=== PATIENT | female | born 1965 | race Two or more races ===

== ENCOUNTER → 2021-05-09 08:53 | Outpatient (BNVA) | payer OTHER, SELFPAY | PROVIDERS: PCP Nurse Practitioner Family; Visit Provider Nurse Practitioner Family | DX: R56.9 Unspecified convulsions (principal); R25.1 Tremor, unspecified; G47.33 Obstructive sleep apnea (adult) (pediatric); R51.9 Headache, unspecified; Z79.899 Other long term (current) drug therapy | CPT/HCPCS: 99212 ==

== ENCOUNTER → 2021-09-06 12:52 | Outpatient (BNVA) | payer MEDICARE, MEDICAID, SELFPAY | PROVIDERS: PCP Nurse Practitioner Family; Visit Provider Nurse Practitioner Family | DX: R56.9 Unspecified convulsions (principal); R25.1 Tremor, unspecified; R51.9 Headache, unspecified | CPT/HCPCS: 99212 ==

== ENCOUNTER 2024-03-29 13:24 | Outpatient (AMB) | payer MEDICARE, SELFPAY ==
--- OUTSIDE RECORDS SUMMARY | 2024-03-29 13:26 | XMS_ITS | Continuity of Care Document ---
Author Organization [facility] Address [address] [place] [address]- Care Team Providers Care Electrifier Operator Name Role Phone Richard CRUZ, Evita Burciaga Primary Care Physician [phone] Encounter [facility] Date(s): 02/05/24 - 03/06/[address] [address] Attending Physician: Alley Ahn Admitting Physician: AdmAlley valero Referring Physician: Admtr Ar8 Encounter Type: Triage Allergies, Adverse Reactions, Alerts No Known Allergies Immunizations Given and Recorded Vaccine Date Status Refusal Reason influenza virus vaccine, inactivated 1 02/06/20 Re corded 1Result Comment: [facility]:[id number] Medications albuterol 90 mcg/inh inhalation aerosol 2 puff, Inhalation, Every 4 hours, PRN Wheezing/Shortness of Breath, 0 Refills, Maintenance Start Date: 03/24/19 Status: Ordered Repeat number: 1 amiTRIPTYLINE = 50 mg, By Mouth, Daily at bedtime, 0 Refills, Maintenance, 11/17/17 9:00:33 AM EDT Start Date: 11/17/17 Status: Ordered Repeat number: 1 baclofen 20 mg oral tablet 20 mg, 1, tablet, By Mouth, 4 times a day, # 270 tablet, Refills 0, Maintenance, 03/24/19 9:12:44 AM EST Start Date: 03/24/19 Status: Ordered Quantity: 270.0 Unit: tablet Repeat number: 1 budesonide 0.5 mg/2 mL inhalation suspension 0.5 mg, 2, mL, Neb, 2 times a day, # 120 mL, Refills 0, Maintenance, 03/24/19 9:13:15 AM EST, Suspension Start Date: 03/24/19 Status: Ordered Quantity: 120.0 Unit: mL Repeat number: 1 buprenorphine-naloxone 8 mg-2 mg sublingual film 1 film, Sublingual, 3 times a day, dissolve under the tongue, 0 Refills, Maintenance, 03/24/19 9:13:36 AM EST, Film Start Date: 03/24/19 Status: Ordered Repeat number: 1 cyanocobalamin 1000 mcg oral tablet 1,000 mcg, 1, tablet, By Mouth, Daily, # 30 tablet, Refills 0, Maintenance, 03/24/19 9:15:00 AM EST Start Date: 03/24/19 Status: Ordered Quantity: 30.0 Unit: tablet Repeat number: 1 docusate-senna 50 mg-187 mg oral tablet 2 tablet, By Mouth, Daily at bedtime, # 30 tablet, 0 Refills, Maintenance, 03/25/19 2:23:33 PM EST,Tablet, [facility]/pharmacy #[id number], 2 tablet By Mouth Daily at bedtime, 170, cm, 03/25/19 11:56:02 EST, Height, 46.9, kg, 03/25/19 1:00:42 EST, Dry Weight Start Date: 03/25/19 Status: Ordered Quantity: 30.0 Unit: tablet Repeat number: 1 Dulera 200 mcg-5 mcg/inh inhalation aerosol 2 puffs, Inhalation, 2 times a day, # 13 Gm, 5 Refills, Maintenance, 03/13/20 10:48:00 AM EST, Aerosol, [facility]/pharmacy #[id number], Partial fill upon patient request if the prescription is for a schedule II opioid drug., 2 puffs Inhalation 2 times a day, 158, cm, 02/06/20 8:23:00 EDT, Height, 46.9, kg, 03/25/19 1:00:00 EST, Dry Weight Start Date: 03/13/20 Status: Ordered Quantity: 13.0 Unit: g Repeat number: 6 duloxetine 30 mg oral enteric coated capsule 1 capsule = 30 mg, By Mouth, Daily, do not crush or chew, 0 Refills, Maintenance, 03/24/19 6:21:00 PM EST, CR Capsule Start Date: 03/24/19 Status: Ordered Repeat number: 1 Excedrin 1 tablet, By Mouth, Every 6 hours, PRN Headache, 0 Refills, Maintenance, 03/24/19 9:16:30 AM EST Start Date: 03/24/19 Status: Ordered Repeat number: 1 ibuprofen 800 mg oral tablet 800 mg, 1, tablet, By Mouth, 4 times a day, # 270 tablet, Refills 0, Maintenance, 03/24/19 9:17:03 AM EST Start Date: 03/24/19 Status: Ordered Quantity: 270.0 Unit: tablet Repeat number: 1 mirtazapine 7.5 mg oral tablet 1 tablet = 7.5 mg, By Mouth, Daily at bedtime, # 180 tablet, 0 Refills, Maintenance, 03/24/19 9:17:26 AM EST, Tablet Start Date: 03/24/19 Status: Ordered Quantity: 180.0 Unit: tablet Repeat number: 1 Multi-Day Plus Minerals 1 tablet, By Mouth, Daily at bedtime, 0 Refills, Maintenance, 03/24/19 9:32:28 AM EST Start Date: 03/24/19 Status: Ordered Repeat number: 1 Narcan 4 mg/0.1 mL nasal spray Once, 0 Refills, Maintenance, 03/24/19 9:33:11 AM EST Start Date: 03/24/19 Status: Ordered Repeat number: 1 Narcan 4 mg/0.1 mL nasal spray 1 spray, Nares, Both, Once, PRN Other, 0 Refills, Maintenance, 03/24/19 6:22:59 PM EST Start Date: 03/24/19 Status: Ordered Repeat number: 1 nicotine 21 mg/24 hr transdermal film, extended release 1 patch, Topically, Daily, PRN Smoking Cessation, # 14 patch, 0 Refills, Maintenance, 03/25/19 2:22:22 PM EST, Patch, [facility]/pharmacy #[id number], 1 patch Topically Daily,PRN:Smoking Cessation, 170, cm, 03/25/19 11:56:02 EST, Height, 46.9, kg, 03/25/19 1:00:42 EST, Dry Weight Start Date: 03/25/19 Status: Ordered Quantity: 14.0 Unit: patch Repeat number: 1 omeprazole 20 mg oral delayed release tablet 1 tablet = 20 mg, By Mouth, Daily, 0 Refills, Maintenance, 03/24/19 9:34:19 AM EST Start Date: 03/24/19 Status: Ordered Repeat number: 1 Oxycodone 10 mL, By Mouth, 4 times a day, 0 Refills, Maintenance, 02/06/20 8:30:00 AM EDT, Partial fill upon patient request Start Date: 02/06/20 Status: Ordered Repeat number: 1 SUMAtriptan 50 mg oral tablet 1 tablet = 50 mg, By Mouth, Once, PRN as needed for migraine headache, may repeat dose once in 2 hours, # 9 tablet, 0 Refills, Maintenance, 03/24/19 6:26:19 PM EST, Tablet Start Date: 03/24/19 Status: Ordered Quantity: 9.0 Unit: tablet Repeat number: 1 Trazodone = 200 mg, By Mouth, Daily at bedtime, 0 Refills, Maintenance, 11/17/17 9:00:23 AM EDT Start Date: 11/17/17 Status: Ordered Repeat number: 1 Tylenol Arthritis Caplet 500 mg 2 tabs, By Mouth, Daily at bedtime, 0 Refills, Maintenance, 03/24/19 6:28:10 PM EST Start Date: 03/24/19 Status: Ordered Repeat number: 1 Problem List Condition Confirmation Course Effective Dates Status Health St [facility]us Informant Asthma Confirmed Active Depression Confirmed Active Tobacco use Confirmed Active EKG study * Event Display: EKG Authored Date: [id number] Patient Care team information Care Team Personnel Name: Mag Arriola RN Position: [facility] OB RN Member Role: Primary Care Nurse Name: Evita Ramos NP Position: [facility] Outreach Member Role: PCP Address: [address] [place] [address] Telecom: Name: Devorah George Position: [facility] Outreach Member Role: Lifetime Consulting Physician Care Team Related Persons Name: MAXIMO VALENCIA Name: IDA MORA Insurance Providers Guarantor name: STEFFI TORRES [facility] Plan Information #: 1 Payer: [facility] C[facility] ALLIANCE/ONE CARE Member Number: NA Policy Number: NA Group Number: NA
--- OUTSIDE RECORDS SUMMARY | 2024-03-29 13:26 | XMS_ITS | Data Portability ---
Author Organization [facility] Address [address] [place] [address] Care Team Providers Care Cray Fishing Hand Name Role Phone [facility] Referring Provider Assessment Encounter Date Assessment Date Assessment LastModified by Organization Details LastModified Time 02/02/2023 02/02/2023 As noted, we wer e called to see this patient regarding concerns of dyspnea. Evaluation in the field was performed by my district fire chief colleague, as noted above, I provided real-time direction and supervision for this visit. The evaluation revealed the patient is an active smoker with a diagnosis of possible COPD, no ton home o2, only on bronchodilator therapy (nebs and albuterol MDI). Vitals notable just for mild tachycardia. Exam is largely reassuring with clear lungs. symptoms have been going on for 3 weeks, stable- not progressive. Impression: asthma/copd on suboptimal therapy Plan: not severe enough to start prednisone at this time. Start advair 1 puff BID high dose. will send message to care team that she needs a respiratory evaluation including PFTs. Gave her warning sings for emergency and also when to call us back. reiterated that she needs to get inhaler teaching from pharmacist when she gets her new inhaler. Disposition: We discussed the diagnostic uncertainty of home visits and the risk associated with this. In this case, the patient and I felt this to be an acceptable and reasonable amount of risk given the benefit of avoiding an ED visit. We discussed the need to seek care urgently/emergent ly in the setting of any new or worsening serious symptoms, particularly worsening shortness of breath. [email or web address] Not available 02/02/2023 14:33:54 Plan of Treatment Reminders Order Date Submit Date Provider Last Modified By Organization Details Last Modified Time Details Appointments None recorded. Lab None recorded. Referral None recorded. Procedures None recorded. Surgeries None recorded. Imaging None recorded. Medication Orders Advair Diskus 500 mcg-50 mcg/dose powder for inhalation 2022 023 [facility]/Pharmacy #[id number], [address] [facility], [place], [address], 14:29:11 Patient TargetsNo targets recorded. Patient InstructionsNo instructions recorded. Reason for Referral None Reported. Medical Equipment None Reported. Medications Name Sig Start Date Stop Date Status Note LastModified by Organization Details LastModified Time ibuprofen 800 mg tablet TAKE 1 TABLET BY MOUTH THREE TIMES A DAY WITH MEALS active Not Available Not Available N ot Available prednisone 20 mg tablet TAKE 1 TABLET (20 MG) BY MOUTH IN THE MORNING FOR 5 DAYS. active Not Available Not Available Not Available oxycodone 15 mg tablet TAKE 1 TABLET (15 MG) BY MOUTH 4 TIMES DAILY FOR 28 DAYS. NEXT FILL 02/06/2023 active Not Available Not Available N ot Available trazodone 100 mg tablet TAKE 1 TABLET BY MOUTH EVERYDAY AT BEDTIME active Not Available Not Available No t Available cyanocobalam in (vit B-12) 1,000 mcg/mL injection solution INJECT 1 ML SUBCUTANEOU SLY EVERY MONTH active Not Available Not Available No t Available gabapentin 300 mg capsule TAKE 2 CAPSULES (600 MG) BY MOUTH AT BEDTIME FOR 30 DAYS, THEN 1 CAPSULE (300 MG) 2 TIMES DAILY. active Not Available Not Available No t Available budesonide 0.5 mg/2 mL suspension for nebulization USE 2ML VIA NEBULIZER TWICE DAILY DIRECTED active Not Available Not Available Not Available ondansetron 4 mg disintegrati ng tablet DISSOLOVE 1 TABLET BY MOUTH EVERY 6 TO 8 HOURS NEEDED FOR NAUSEA & VOMITING active Not Available Not Available No t Available fluticasone propionate 50 mcg/actuatio n nasal spray,suspen blanco PLEASE SEE ATTACHED FOR DETAILED DIRECTIONS active Not Available Not Available N ot Available amitriptylin e 100 mg tablet TAKE 1 TABLET DAILY WITH 25MG TABLET FOR A TOTAL DAILY DOSE OF 125MG active Not Available Not Available No t Available diazepam 5 mg tablet TAKE 1 TABLET BY MOUTH 3 TIMES A DAY FOR 28 DAYS active Not Available Not Available Not Available Ventolin HFA 90 mcg/actuatio n aerosol inhaler INHALE 2 PUFFS EVERY 4 TO 6 HOURS NEEDED FOR SHORTNESS OF BREATH/WHEE ZE active Not Available Not Available No t Available Laxative (bisacodyl) 5 mg tablet,delay ed release TAKE 2 TABLETS BY MOUTH AT 6PM DIRECTED. active Not Available Not Available No t Available cholestyrami ne (with sugar) 4 gram powder for susp in a packet TAKE 1 PACKET (4 G) BY MOUTH WITH BREAKFAST, WITH LUNCH, AND WITH EVENING MEAL. active Not Available Not Available No t Available diclofenac 1 % topical gel DIRECTED APPLY TO AFFECTED AREA TWICE A DAY TO 3 TIMES A DAY NEEDED FOR PAIN active Not Available Not Available No t Available Gavilyte-C 240 gram-22.72 gram-6.72 gram-5.84 gram oral solution PLEASE SEE ATTACHED FOR DETAILED DIRECTIONS active Not Available Not Available N ot Available Wixela Inhub 500 mcg-50 mcg/dose powder for inhalation INHALE 1 PUFF TWICE A DAY BY INHALATION ROUTE. active Not Available Not Available No t Available Vitals Date Recorded Heart rate Body temperature Oxygen saturation Oxygen saturation in Arterial blood by Pulse oximetry Body weight Respiratory rate Body height Systolic blood pressure Diastolic blood pressure Provider Name and Address Organization Details Last Updated DateTime 3 100 /min 99.2 [degF] 100 % 100 % 15795.2 4 g 16 /min 157.48 cm 154 mm[Hg] 67 mm[Hg] Not Available [facility] - production 3 14:21:26 Social History None recorded. Functional Status None recorded. Mental Status None recorded. Family History Nothing Reported. Medical History No medical history recorded. Gynecological HistoryNo gynecological history recorded. Obstetrics History GPAL:G 0 P 0 0 0 0 Past Encounters Encounter ID Performer Location Encounter Start Date Encounter Closed Date Diagnosis/Indication Diagnosis SNOMED-CT Code Diagnosis ICD10 Code [id number] CESAR ENAMORADO MD [facility] - [facility] [address] [place] [address] [id number] 02/02/2023 14:21:24 02/03/2023 09:34:58 Asthma 909756988 J45.909 Health Concerns Section Related Observation LastModified by Organization Detai ls LastModified Time None Recorded Concern Status LastModified by Organization Details LastModified Time None Recorded Advance Directives Directive None Recorded Payers Encounter Date Sequence Insurance Name Policy Number Policy Rodrigues Covered Member ID Rodrigues Member ID Guarantor Name 02/02/2023 1 [facility] - DOS ON OR AFTER 2022 - DUAL ELIGIBLE - [employer] AND ONE CARE (MEDICARE REPLACEMENT/ADV ANTAGE - HMO) Radha Belal [id number] Radha Bella Notes Date Note Type Note Provider Name and Address Organization Details Recorded Time 02/02/2023 text/html HPI: Member states she has been sick with a cold for the last 3 weeks. Member states she has used her Ventolin inhaler and nebulizer with no relief. Member states she has a new PCP and has appt on 03/16. Member reports having chest tightness with coughing and shortness of breath. Member states he cough in productive with green sputum. Member states she has been given Prednisone in the past with similar symptoms. Member has a nearby urgent care but does not have any transportation. History of GERD, Insomnia, chronic pain syndrome, migraine and anxiety. .................. .................. .................. .................. .................. .................. .................. ............... CRC Nursing Assessment: Comments: CRC RN DID NOT NEED FURTHER INFO .................. .................. .................. .................. .................. .................. .................. ............... Cement Or Concrete Finishing Supervisor Note From [place]: [facility] visit for female patient who has been sick for 3 weeks. Arrived to home where patient answered the door. Pt presents conscious and alert and ambulating without difficulty. Pt reports onset of illness 3 weeks ago with cough, shortness of breath, poor appetite and possible fevers. Pt has been taking nyquil and dayquil for this illness in addition to increased utilization of albuterol and ventolin nebulizer treatments. Pt reports negative covid swab at home earlier in illness. Vital signs taken with patient noted to be tachycardic with hr of 100. Pt afebrile. Lung sounds auscultated and found to be clear in all almaraz. Consulted with [facility] Dr. Moya who noted lack of prescribed long acting beta agonist in addition to inhaled steroids. Dr. Moya prescribed fluticasone/ salmetrol combined inhaler. Patient education provided and reviewed red flags for ED. .................. .................. .................. .................. .................. .................. .................. ............... Disposition: Fulfilled CESAR ENAMORADO MD [address] [place] [address],[address], [place], [address], [facility] 02/02/2023 18:10:07 OBGyn Episode No OBEpisode recorded.
--- OUTSIDE RECORDS SUMMARY | 2024-03-29 13:26 | XMS_ITS | Continuity of Care Document ---
Author Organization [facility] Address [address] [address]- Care Team Providers Care Pipe Cleaner Name Role Phone Richard CRUZ, Evita Burciaga Primary Care Physician [id number]/16[facility] - 03/25/24 [facility] [address] [address] Attending Physician: Milan Alvarez MD Admitting Physician: Milan Alvarez MD Referring Physician: Richard CRUZ, Evita Burciaga Encounter Type: Pre-OutPatient One Time Allergies, Adverse Reactions, Alerts No Known Allergies Immunizations Given and Recorded Vaccine Date Status Refusal Reason influenza virus vaccine, inactivated 1 02/06/20 Re corded 1Result Comment: [facility]:[id number] Medications albuterol 90 mcg/inh inhalation aerosol 2 [...] 0 Refills, Maintenance, 03/25/19 2:23:33 PM EST,Tablet, [facility]/pharmacy #[id number], 2 tablet By Mouth Daily at bedtime, 170, cm, 03/25/19 11:56:02 EST, Height, 46.9, kg, 03/25/19 1:00:42 EST, Dry Weight Start Date: 03/25/19 Status: Ordered Quantity: 30.0 Unit: tablet Repeat number: 1 Dulera 200 mcg-5 mcg/inh inhalation aerosol 2 puffs, Inhalation, 2 times a day, # 13 Gm, 5 Refills, Maintenance, 03/13/20 10:48:00 AM EST, Aerosol, [facility]/pharmacy #[id number], Partial fill upon patient request if [...] Refills, Maintenance, 03/25/19 2:22:22 PM EST, Patch, [facility]/pharmacy #[id number], 1 patch Topically Daily,PRN:Smoking Cessation, 170, [...] Depression Confirmed Active Tobacco use Confirmed Active Patient Care team information Care Team Personnel Name: Mag Arriola RN Position: [facility] OB RN Member Role: Primary Care Nurse Name: Evita Ramos NP Position: [facility] Outreach Member Role: PCP Address: [address] [place] [address] Telecom: Name: Devorah George Position: [facility] Outreach Member Role: Lifetime Consulting Physician Care Team Related Persons Name: MAXIMO VALENCIA Name: IDA MORA Insurance Providers Guarantor name: STEFFI TORRES Health Plan Information #: 1 Payer: [employer]/ONE CARE Member Number: [id number] Policy Number: NA Group Number: [facility] Health Plan Information #: 2 Payer: [employer] Member Number: [id number] Policy Number: NA Group Number: NA
--- OUTSIDE RECORDS SUMMARY | 2024-03-29 13:26 | XMS_ITS | Continuity of Care Document ---
Author Organization [facility] Address [address] [place] [address]- Care Team Providers Care Resident Manager Name Role Phone Richard CRUZ, Evita Burciaga Primary Care Physician [id number] Date(s): 01/27/24 - 03/16/[address] [address] Attending Physician: Richard CRUZ, Evita Burciaga Admitting Physician: Evita Ramos NP Referring Physician: Richard CRUZ, Evita Burciaga Encounter Type: Pre-Outpt Allergies, Adverse Reactions, Alerts No Known Allergies Immunizations Given and Recorded Vaccine Date Status Refusal Reason influenza virus vaccine, inactivated 1 02/06/20 Re corded 1Result Comment: [facility]:[id number] Medications albuterol 90 mcg/inh inhalation aerosol 2 [...] Maintenance, 03/25/19 2:23:33 PM EST,Tablet, [facility]/pharmacy #[id number], 2 tablet By Mouth Daily at bedtime, 170, cm, 03/25/19 11:56:02 EST, Height, 46.9, kg, 03/25/19 1:00:42 EST, Dry Weight Start Date: 03/25/19 Status: Ordered Quantity: 30.0 Unit: tablet Repeat number: 1 Dulera 200 mcg-5 mcg/inh inhalation aerosol 2 puffs, Inhalation, 2 times a day, # 13 Gm, 5 Refills, Maintenance, 03/13/20 10:48:00 AM EST, Aerosol, [facility]/pharmacy #[id number], Partial fill upon patient request if [...] 03/25/19 2:22:22 PM EST, Patch, [facility]/pharmacy #[id number], 1 patch Topically Daily,PRN:Smoking Cessation, 170, [...] Team Personnel Name: Mag Arriola RN Position: [facility] OB RN Member Role: Primary Care Nurse Name: Evita Ramos NP Position: [facility] Outreach Member Role: PCP Address: [address] [place] [address] Telecom: Name: Devorah George Position: [facility] Outreach Member Role: Lifetime Consulting Physician Care Team Related Persons Name: MAXIMO VALENCIA Name: IDA MORA Insurance Providers Guarantor name: STEFFI TORRES Health Plan Information #: 1 Payer: [employer] Member Number: [id number] Policy Number: NA Group Number: [id number] Health Plan Information #: 2 Payer: [employer] Member Number: [id number] Policy Number: NA Group Number: NA
--- OUTSIDE RECORDS SUMMARY | 2024-03-29 13:26 | XMS_ITS | Continuity of Care Document ---
Author Organization [facility] Address [address] [facility] [address] [place] [address]- Care Team Providers Care Ship Rigger Apprentice Name Role Phone Richard CRUZ, Evita Burciaga Primary Care Physician Encounter [facility] Date(s): 02/24/24 - 03/25/24 [facility] [address] [address] Attending Physician: Admtr, Rufino8 Admitting Physician: [id number] Referring Physician: Admtr, Ar8 Encounter Type: Triage Allergies, Adverse Reactions, Alerts No Known Allergies Immunizations Given and Recorded Vaccine Date Status Refusal Reason influenza virus vaccine, inactivated 1 02/06/20 Re corded 1Result Comment: [facility]:[id number] Medications albuterol 90 mcg/inh inhalation aerosol 2 [...] 0 Refills, Maintenance, 03/25/19 2:23:33 PM EST,Tablet, [facility]/pharmacy #[id number], 2 tablet By Mouth Daily at bedtime, 170, cm, 03/25/19 11:56:02 EST, Height, 46.9, kg, 03/25/19 1:00:42 EST, Dry Weight Start Date: 03/25/19 Status: Ordered Quantity: 30.0 Unit: tablet Repeat number: 1 Dulera 200 mcg-5 mcg/inh inhalation aerosol 2 puffs, Inhalation, 2 times a day, # 13 Gm, 5 Refills, Maintenance, 03/13/20 10:48:00 AM EST, Aerosol, [facility]/pharmacy #[id number], Partial fill upon patient request if [...] Refills, Maintenance, 03/25/19 2:22:22 PM EST, Patch, [facility]/pharmacy #[id number], 1 patch Topically Daily,PRN:Smoking Cessation, 170, [...] Team Personnel Name: Mag Arriola RN Position: [facility] OB RN Member Role: Primary Care Nurse Name: Evita Ramos NP Position: [facility] Outreach Member Role: PCP Address: [address] [place] [address] Telecom: Name: Devorah George Position: [facility] Outreach Member Role: Lifetime Consulting Physician Care Team Related Persons Name: MAXIMO VALENCIA Name: IDA MORA Insurance Providers Guarantor name: [facility] [employer] [facility] Information #: 1 Payer: [facility]/ONE CARE Member Number: NA Policy Number: NA Group Number: NA
--- OUTSIDE RECORDS SUMMARY | 2024-03-29 13:26 | XMS_ITS | Continuity of Care Document ---
Author Organization [employer] ter Address [address] [place] [address]- Care Team Providers Care Rn Case Manager Name Role Phone Richard CRUZ, Evita Burciaga Primary Care Physician Encounter [facility] Date(s): 01/27/24 - 03/05/24 [facility] [address], [place] [address] Attending Physician: Richard CRUZ, Evita Burciaga Admitting Physician: Richard CRUZ, Evita Burciaga Referring Physician: Richard CRUZ, Evita Burciaga Encounter Type: Pre-Outpt Allergies, Adverse Reactions, Alerts No Known Allergies Immunizations Given and Recorded Vaccine Date Status Refusal Reason influenza virus vaccine, inactivated 1 02/06/20 Re corded 1Result Comment: [facility] [id number] Medications albuterol 90 mcg/inh inhalation aerosol 2 [...] 0 Refills, Maintenance, 03/25/19 2:23:33 PM EST,Tablet, [facility]/pharmacy #[id number], 2 tablet By Mouth Daily at bedtime, 170, cm, 03/25/19 11:56:02 EST, Height, 46.9, kg, 03/25/19 1:00:42 EST, Dry Weight Start Date: 03/25/19 Status: Ordered Quantity: 30.0 Unit: tablet Repeat number: 1 Dulera 200 mcg-5 mcg/inh inhalation aerosol 2 puffs, Inhalation, 2 times a day, # 13 Gm, 5 Refills, Maintenance, 03/13/20 10:48:00 AM EST, Aerosol, [facility]/pharmacy #[id number], Partial fill upon patient request [...] Refills, Maintenance, 03/25/19 2:22:22 PM EST, Patch, [facility]/pharmacy #[id number], 1 patch Topically Daily,PRN:Smoking Cessation, [...] Team Personnel Name: Mag Arriola RN Position: [facility] OB RN Member Role: Primary Care Nurse Name: Evita Ramos NP Position: [facility] Outreach Member Role: PCP Address: [address] [place] [address] Telecom: Name: Devorah George Position: [facility] Outreach Member Role: [employer] Physician Care Team Related Persons Name: MAXIMO VALENCIA Name: IDA MORA Insurance Providers Guarantor name: STEFFI TORRES Health Plan Information #: 1 Payer: [employer] Member Number: [id number] Policy Number: NA Group Number: [facility] Health Plan Information #: 2 Payer: [employer] Member Number: [id number] Policy Number: NA Group Number: NA
--- NOTE | 2024-03-29 13:27 | A.OFFVIS_ITS ---
Vital Signs 03/29/24 13:28 Height 5 ft 2 in Weight 96 lb BMI 17.6 BP 118/68 Blood Pressure Location Rt brachial Position Sitting Pulse 96 Pulse Source Pulse Oximeter Pulse Oximetry (%) 97 Oxygen Delivery Method Room Air Intake Visit Reasons: Follow Up Intake Note: her Dr was looking to changer her Diazepam seizure medication to different medication(patient states it works but dr doesnt want her taking. Accompanied by: Self / Same As Patient Allergies topiramate Allergy (Intermediate, Verified 03/29/24 13:30) Unknown Medication List - Last Reconciled 03/29/24 by BRIAN Borjas albuterol sulfate 90 mcg/actuation (Ventolin HFA) 2 puffs PO Q4-6H PRN amitriptyline 4 tabs qhs x's 1 wk, then 3 tabs qhs x's 1 wk, then 2 tabs qhs x's 1 wk, then 1 tab qhs x's 1 wk, then 1 tab every other night x's 1 wk then stop PO bedtime; 5 weeks amitriptyline 100 mg PO DAILY baclofen 20 mg PO QID budesonide mg inhalation diazepam 5 mg PO BID PRN ibuprofen 800 mg PO TID levetiracetam (Keppra) 750 mg PO BID 30 days magnesium oxide 400 mg PO BEDTIME omeprazole 20 mg PO BID oxycodone 15 mg PO QID riboflavin (vitamin B2) 200 mg (2 x 100 mg) PO BID 30 days trazodone 100 mg PO BEDTIME HPI Comments Details: Right-handed 58-yr-old female presents for f/u visit of seizure activity and headache. Pt was last seen my myself in August 2021. Pt reports that since the last visit, pt stopped Keppra as it started to cause hallucinations. She was then started on Diazepam 5mg TID by her PCP. Review of the previous visit new, notes there was discussion with patient regarding using diazepam as needed in place of baclofen, as baclofen can reduce seizure threshold.. Her last full seizure was prior to switching from the Keppra to the Diazepam- was evaluated at [facility] in 2021. She states that she has to keep her mood calm- states if she is too happy, too sad, and especially if very angry- this will trigger a seizure. She describes the full seizure as falling asleep for up to 8 hrs, she can walk around and talk with people, and not remembering anything. She states she has smaller seizures- so when she feels the seizure come on, she lays down in the middle of the bed until she feels better- maybe 2-3 hrs. When she comes out of the seizure, she feels fine. She also have episodes of shaking lasting 5-10 minutes, has to hold onto things, she needs help to go the bathroom. When these episodes happen, she can just fall, during the fall she has had hip fractures and foot injuries. The episode may start at her sister's house and then her family has walk/carry her back to her own apartment. Sometimes she has urinary or bowel incontinence. She cannot control her body. She can fall. She just tries to hold and says don't let me fall . After the episode, she still needs the use the walker all day as the shakiness lasts all day and all night. When the seizure is little - she can relax and prevent the seizure. She can have some orthostatic lightheadedness at times. Per pt, she has a new PCP, who has started to wean her off of the Diazepam- now on 5mg qam, 2.5mg q afternoon, and 5mg qhs. She does continue on Oxycodone 15mg po QID for chronic pain. Now on Amitriptyline 25mg qhs for RLE foot neuralgias. She states she has recently been referred for cardiology workup as a recent chest imaging showed enlarged cardiac size. She has been taking Gabapentin 300mg bid. In the past- she has had allergy to Topiramate- she does not recall taking this. Per my previous notes, she tried depakote but stopped d/t worry for side effects. She has been having a throbbing/burning occipital region headache a/w photophobia, nausea. Sometimes her neck hurts and moves into her back. She also has chronic right hip pain following Right hip ORIF. Has h/o right shoulder pain- s/p surgical repair. Cold weather, humidity, storms exacerbate her body pains. Her sleep is not that good lately- attributes this to her her headache. [facility] Surgical History History of hip surgery H/O shoulder surgery Family History Father Cancer HTN (hypertension) Heart disease Mother Cancer Diabetes Social History Alcohol intake: never Patient Tobacco Use Status: Current everyday Tobacco user Physical Exam Vital Signs: Last Vital Signs Pulse 96 03/29/24 13:28 BP 118/68 03/29/24 13:28 Pulse Ox 97 03/29/24 13:28 Oxygen Delivery Method Room Air 03/29/24 13:28 BMI result Body Mass Index 17.6 Const General: cooperative and no acute distress Orientation/consciousness: patient oriented x3 HEENT Head: Yes normocephalic Resp Effort & Inspection: normal respiratory effort and able to speak in complete sentences Neuro General: patient oriented x3, gait normal and CN's II-XI intact bilaterally Cognition (Neuro): normal cognition Motor exam (neuro): 5/5 motor strength present throughout Psych Appearance: grossly normal Mental Status: mental status grossly normal Speech and movement: Normal speech and movement present Affect: normal affect Attitude: cooperative Thought process: Normal thought process present Thought content: Normal thought content present Insight: Good insight present (Psych) Judgement: Good judgement present (Psych) Assessment & Plan Assessment & Plan (1) Seizure: Comment: Likely psychogenic nonepileptic convulsions. Cardiac etiology remains in differential. Code(s): R56.9 - Unspecified convulsions Category: Medical (2) Orthostatic lightheadedness: Code(s): R42 - Dizziness and giddiness Category: Medical (3) Tremor: Comment: episodes of tremors leading to falls Code(s): R25.1 - Tremor, unspecified Category: Medical (4) Migraine without aura: Code(s): G43.009 - Migraine without aura, not intractable, without status migrainosus Category: Medical Plan For seizures activity: Previous 72 hr EEG normal. 08/30/[address]: Normal Patient advised to undergo cardiac tilt-table test at [facility]. Increase gabapentin from 300 mg b.i.d. to 300 mg t.i.d.- this may help mood control, muscle spasms, pain, and headache. Once patient has acclimated to increase gabapentin, consider further reduction in scheduled diazepam dose. Previous medication trials: Topiramate: Possibly was tried for headache, not tolerated. Depakote 250 mg was tried for seizure activity, however patient stopped due to worry for side effect. Keppra 750 mg b.i.d.: Cause hallucinations. Future considerations: Video EEG, Referral to a Tertiary epilepsy Clinic or functional neurological disorder clinic/therapist. For migraine headache: Continue Amitriptyline 25 mg q.h.s.- use for RLE paresthesia as well Patient previously used Naratriptan prn- however would hold until cardiology eval completed. Patient requests that medications continue to be prescribed by her PCP, states it is easier to manage refills this way. I did place a call directly to her PCP office and left message requesting PCP call to discuss his case. Will follow-up upon review of above and patient to follow-up in clinic in 6 months or sooner prn. Orders: Orders ECG Tilt Table Test Today R42 - Dizziness and giddiness, R56.9 - Unspecified convulsions Medications: New gabapentin 300 mg PO TID 90 caps 0RF 30 days Coding Level of Care Code Est Pt Level 4 (11487) Diagnoses Seizure R56.9 Orthostatic lightheadedness R42 Tremor R25.1 Migraine without aura G43.009
[2024-03-29 13:28] VITALS: BP 118/68; PULSE 96; O2SAT 97; BMI 17.6
== END 2024-03-29 14:27 | disposition home or self-care (01) ==
PROVIDERS: PCP Nurse Practitioner Family; Visit Provider Nurse Practitioner Family
DX: R56.9 Unspecified convulsions (principal); R42 Dizziness and giddiness; R25.1 Tremor, unspecified; G43.009 Migraine without aura, not intractable, without status migrainosus
CPT/HCPCS: 99214

== ENCOUNTER → 2024-03-29 13:24 | Outpatient (BNVA) | payer MEDICARE, SELFPAY | PROVIDERS: PCP Nurse Practitioner Family; Visit Provider Nurse Practitioner Family | DX: R56.9 Unspecified convulsions (principal); R42 Dizziness and giddiness; R25.1 Tremor, unspecified; G43.009 Migraine without aura, not intractable, without status migrainosus | CPT/HCPCS: 99212 ==

== ENCOUNTER 2024-11-29 10:00 | Outpatient (AMB) | payer MEDICARE, SELFPAY ==
[2024-11-29 10:06] VITALS: BP 158/80; PULSE 96; O2SAT 100; BMI 15.9
--- NOTE | 2024-11-29 10:06 | MHC.OFFVIS ---
Vital Signs 11/29/24 10:06 Height 5 ft 2 in Weight 87 lb 2 oz BMI 15.9 BP 158/80 H Blood Pressure Location Rt brachial Position Sitting Pulse 96 Pulse Source Pulse Oximeter Pulse Oximetry (%) 100 Oxygen Delivery Method Room Air Intake Visit Reasons: Follow Up 6mo Intake Note: Patient presents 6 month follow up for migraines/Seizures and tremors. Accompanied by: Self / Same As Patient Allergies topiramate Allergy (Intermediate, Verified 11/29/24 10:08) Unknown Medication List - Last Reconciled 11/29/24 by BRIAN Borjas albuterol sulfate 90 mcg/actuation (Ventolin HFA) 2 puffs PO Q4-6H PRN aspirin 81 mg PO DAILY lebgkja-hinvmhigywbvs-jkukitbn 250-250-65 mg (Excedrin Extra Strength) 2 tabs PO Q4-6H PRN budesonide mg inhalation diazepam 5 mg PO BID PRN gabapentin 300 mg PO TID 30 days ibuprofen 800 mg PO TID lisinopril 5 mg PO DAILY 30 days magnesium oxide 400 mg PO BEDTIME omeprazole 20 mg PO BID oxycodone 15 mg PO QID riboflavin (vitamin B2) 200 mg (2 x 100 mg) PO BID 30 days HPI Comments Details: Right-handed 59-yr-old female presents for f/u visit of seizure activity and headache, however she reports she needs to discuss her medications following a October hospitalization for stroke and heart failure. Per pt, on 10/27/24, her son told her that her family called 911, as she was c/o chest pain, SOB, and walked herself outside where she passed out. She was brought to [facility] and was transferred to [facility] in [place]. She states she was discharged home on 11/16/24, as pt did not wnat to go to rehab in [place]. She was started on ASA and atorvastatin 80mg, and was advised to establish care w/ cardiology. She was given Keppra, but stopped it as she has a h/o not tolerating Keppra. Her amitriptyline and trazodone was stopped during the hospitalization. She was discharge w/ home NG/PT. She reports her residual symptoms- hoarse voice - ? d/t intubation and right forearm weakness, RUE/RLE painful tightness, more bothersome in the RLE. She is finding herself to become more easily tired. She is using a walker, at times when more tired. She having more headaches- now everyday. Takes Excedrin daily. Denies dysphagia, bladder/bowel changes, vision changes. Pt notes that prior to the hospitalization, she had been weaning off the diazepam, for seizure management. However, in the hospital, the diazepam was resumed. Then on 11/25/24, per patient, her PCP increased the diazepam and gabapentin, and ordered excedrin for headaches. 03/29/24, Previous HPI: Right-handed 58-yr-old female presents for f/u visit of seizure activity and headache. Pt was last seen my myself in August 2021. Pt reports that since the last visit, pt stopped Keppra as it started to cause hallucinations. She was then started on Diazepam 5mg TID by her PCP. Review of the previous visit new, notes there was discussion with patient regarding using diazepam as needed in place of baclofen, as baclofen can reduce seizure threshold.. Her last full seizure was prior to switching from the Keppra to the Diazepam- was evaluated at [facility] in 2021. She states that she has to keep her mood calm- states if she is too happy, too sad, and especially if very angry- this will trigger a seizure. She describes the full seizure as falling asleep for up to 8 hrs, she can walk around and talk with people, and not remembering anything. She states she has smaller seizures- so when she feels the seizure come on, she lays down in the middle of the bed until she feels better- maybe 2-3 hrs. When she comes out of the seizure, she feels fine. She also have episodes of shaking lasting 5-10 minutes, has to hold onto things, she needs help to go the bathroom. When these episodes happen, she can just fall, during the fall she has had hip fractures and foot injuries. The episode may start at her sister's house and then her family has walk/carry her back to her own apartment. Sometimes she has urinary or bowel incontinence. She cannot control her body. She can fall. She just tries to hold and says don't let me fall . After the episode, she still needs the use the walker all day as the shakiness lasts all day and all night. When the seizure is little - she can relax and prevent the seizure. She can have some orthostatic lightheadedness at times. Per pt, she has a new PCP, who has started to wean her off of the Diazepam- now on 5mg qam, 2.5mg q afternoon, and 5mg qhs. She does continue on Oxycodone 15mg po QID for chronic pain. Now on Amitriptyline 25mg qhs for RLE foot neuralgias. She states she has recently been referred for cardiology workup as a recent chest imaging showed enlarged cardiac size. She has been taking Gabapentin 300mg bid. In the past- she has had allergy to Topiramate- she does not recall taking this. Per my previous notes, she tried depakote but stopped d/t worry for side effects. She has been having a throbbing/burning occipital region headache a/w photophobia, nausea. Sometimes her neck hurts and moves into her back. She also has chronic right hip pain following Right hip ORIF. Has h/o right shoulder pain- s/p surgical repair. Cold weather, humidity, storms exacerbate her body pains. Her sleep is not that good lately- attributes this to her her headache. REPLACED BY [facility] Surgical History History of hip surgery H/O shoulder surgery Family History Father Cancer HTN (hypertension) Heart disease Mother Cancer Diabetes Social History Alcohol intake: never Patient Tobacco Use Status: Current everyday Tobacco user Physical Exam Vital Signs: Last Vital Signs Pulse 96 11/29/24 10:06 BP 158/80 H 11/29/24 10:06 Pulse Ox 100 11/29/24 10:06 Oxygen Delivery Method Room Air 11/29/24 10:06 BMI result Body Mass Index 15.9 Const General: cooperative and no acute distress Orientation/consciousness: patient oriented x3 HEENT Head: Yes normocephalic Resp Effort & Inspection: normal respiratory effort and able to speak in complete sentences Neuro Other: Mild RUE and RLE tone RUE mild weakness Stands easily, slow steady gait General: patient oriented x3 and CN's II-XI intact bilaterally Cognition (Neuro): normal cognition Deep tendon reflexes (DTR's): Right triceps reflex intensity grade: 3+, Left triceps reflex intensity grade: 2+, Rt Biceps (C5, C6): 3+, Left biceps reflex intensity grade: 2+, Right brachioradialis reflex intensity grade: 3+, Left brachioradialis reflex intensity grade: 2+, Right patellar reflex intensity grade: 3+, Left patellar reflex intensity grade: 2+ and Right ankle reflex intensity grade: 3+ Psych Appearance: grossly normal Mental Status: mental status grossly normal Speech and movement: Normal speech and movement present Affect: normal affect Attitude: cooperative Thought process: Normal thought process present Thought content: Normal thought content present Insight: Good insight present (Psych) Judgement: Good judgement present (Psych) Assessment & Plan Assessment & Plan (1) CVA (cerebral vascular accident): Code(s): I63.9 - Cerebral infarction, unspecified Category: Medical Qualifiers: Laterality of affected vessel: unspecified (2) Hemiparesis affecting right side as late effect of cerebrovascular accident (CVA): Code(s): I69.351 - Hemiplegia and hemiparesis following cerebral infarction affecting right dominant side Category: Medical (3) Seizure: Comment: Likely psychogenic nonepileptic convulsions. Cardiac etiology remains in differential. Code(s): R56.9 - Unspecified convulsions Category: Medical (4) Orthostatic lightheadedness: Code(s): R42 - Dizziness and giddiness Category: Medical (5) Tremor: Comment: episodes of tremors leading to falls Code(s): R25.1 - Tremor, unspecified Category: Medical (6) Migraine without aura: Code(s): G43.009 - Migraine without aura, not intractable, without status migrainosus Category: Medical Qualifiers: Status migrainosus presence: without status migrainosus Intractability: not intractable Qualified Code(s): G43.009 - Migraine without aura, not intractable, without status migrainosus Plan For interval CVA: Start lisinopril 5 mg daily-to optimize BP control, w/ goal <130/90 Continue aspirin 81 mg daily, atorvastatin 80 mg daily. Concur with increased gabapentin, this may help residual right-sided tone/spasticity/discomfort. Continue PT exercises For seizures activity: Previous 72 hr EEG normal. 08/30/[address]: Normal Patient advised to undergo cardiac tilt-table test at [facility]. Continue gabapentin 300 mg t.i.d.- this may help mood control, muscle spasms, pain, and headache. Previous medication trials: Topiramate: Possibly was tried for headache, not tolerated. Depakote 250 mg was tried for seizure activity, however patient stopped due to worry for side effect. Keppra 750 mg b.i.d.: Cause hallucinations. Future considerations: Video EEG, Referral to a Tertiary epilepsy Clinic or functional neurological disorder clinic/therapist. For acute migraine headache: May continue Tylenol or Excedrin migraine as needed for now. Previous trials: Naratriptan-was helpful. Acute migraine treatment contraindications: All triptans/DHE due to h/o CVA. All CGRP antagonist due to CVA within the last 6 months. NSAIDs due to poorly controlled BP at this time. For migraine prevention: Continue gabapentin as above Previous trials: Amitriptyline up to 100mg- discontinued after CVA in 2024. Naratriptan prn- was helpful. Migraine treatment contraindications: TCAs d/t recent CVA. All CGRP antagonist due to CVA within the last 6 months. Will follow-up upon review of above and patient to follow-up in clinic in 6 months or sooner prn. Addendum, upon [facility] chart review to check if previously ordered tilt-table test was completed, note that on 12/02/2024, patient presented to [facility] ER with complaint of shortness of breath. With review of this interval hospitalization, and note that the lisinopril I just ordered, has been discontinued, I will remove this from patient's medication profile- though per Cardiology recommendations, this maybe resumed if blood pressure improves or increases. Per 12/03/2024 [facility] discharge note: Assessment and Plan Radha is a 59-year-old female with past medical history of?asthma, COPD,?back pain on chronic opioids,?seizure disorder, anxiety depression?hyperlipidemia, hypertension presented to the ED with shortness of breath.? Patient mention she was feeling more short of breath than usual, she took her ProAir inhaler,?nebulizer?but?that did not help with her shortness of breath so she called?ambulance and was brought in the emergency room.Assessment and plan: ?The patient? presented to [facility] on 10/27/2024 due to hypoxic respiratory failure in the setting of pulmonary edema intubated? and transferred to?[facility]? was admitted there? until 11/16/24. Echocardiogram showed low EF,?possible stress cardiomyopathy,?moderate to severe AI moderate to severe MR, moderate to severe MS. ?She underwent extensive cardiac workup including transthoracic echocardiogram,?cardiac catheterization which showed Left main?normal; LAD?30% stenosis in the proximal LAD and 30% stenosis in the diagonal branch; circumflex?30% stenosis in the proximal to mid circumflex and 80% stenosis in a small third OM branch; RCA?40% stenosis in the proximal to mid RCA. Patient was seen by cardiac surgery Dr. Ivory who recommended?who recommended a combined aortic valve and mitral valve replacement to be arranged in the outpatient setting Before she was discharged from [facility], she underwent a follow-up transthoracic echocardiogram on 11/11/2024 that showed recovery of the LVEF. ?Specifically, she was noted to have a normal left ventricular systolic function with a left ventricular ejection fraction of 55 to 60%, mild LVH, moderate AI, severe MS, and mild MR. As mentioned patient presented with shortness of breath her proBNP was elevated,?chest x-ray showed interstitial markings.? She was given IV Lasix in the ED. ?Cardiology was consulted cardiology started her on Lasix 20 mg IV twice daily, patient is feeling better with IV Lasix her shortness of breath has improved significantly. ?She was not discharged from [facility] with any diuretics.? Echocardiogram was done here which showed a normal ejection fraction, persistent valvular abnormalities.? She was evaluated by cardiology today.? Patient wants her valve surgery to be done locally.? Cardiology will refer her to [facility] cardiac surgery to be evaluated as outpatient. ?For now cardiology recommends to continue?Lasix 20 mg p.o. daily.? Since patient is feeling better shortness of breath has improved significantly she will be discharged home today with p.o. Lasix. Shortness of breath ?(R06.02) ?Acute?CHF exacerbation ?Moderate to severe AI , moderate to severe MR , moderate to severe MS COPD with asthma ?(J44.89) Shortness of breath has improved with diuresis No signs of asthma/COPD exacerbation Appreciate cardiology recommendation Continue Lasix 20 mg? po ?potassium chloride 10 mEq daily o BID Monitor weight daily Repeat BMP with PCP in 1 week Cardiology to refer her to cardiac surgery?as outpatient Cardiology has started her on metoprolol, will continue metoprolol 25 mg p.o. daily Blood pressure is soft will hold lisinopril 5 mg on discharge?can be resumed as outpatient if blood pressure remains stable Resume home inhalers for asthma and COPD Seizure disorder ?(G40.909) Continue home dose of Keppra, diazepam Chronic pain continue home dose of oxycodone 15 mg every 6 hours Hyperlipidemia continue?atorvastatin Patient InstructionsPlease note following medication changes Medications started-? Lasix 20 mg p.o. daily Potassium chloride 10 mEq daily Metoprolol 25 mg daily Medication discontinued-? lisinopril 5 mg Please take all medication as prescribed monitor daily weight Medications: New gabapentin 800 mg PO TID Coding Level of Care Code Est Pt Level 4 (40964) Diagnoses CVA (cerebral vascular accident) I63.9 Laterality of affected vessel: unspecified Hemiparesis affecting right side as late effect of cerebrovascular accident (CVA) I69.351 Seizure R56.9 Orthostatic lightheadedness R42 Tremor R25.1 Migraine without aura and without status migrainosus, not intractable G43.009 Status migrainosus presence: without status migrainosus Intractability: not intractable
--- OUTSIDE RECORDS SUMMARY | 2024-11-29 11:11 | XMS_ITS | Encounter Summary ---
Author Organization [facility] Address [address] [place] [id number] Phone Care Team Providers Care Valving Machine Operator Name Role Phone Elen Bennett HELP DESK INTERN Primary Care Provider Evita Ramos HELP DESK INTERN Primary Care Provider [phone] Encounter Details Date Type Department Care Team (Late st Contact Info) Description 05/20/2021 Procedure Pass [facility] [address] [place] [address] Social History Tobacco Use Types Packs/Day Years Used Date Smoking Tobacco: Every Day Cigarettes 1 30 Smokeless Tobacco: Never Alcohol Use Standard Drinks/Week Comments No 0 (1 standard drink = 0.6 oz pur e alcohol) Comments No Sex and Gender Information Value Date Recorded Sex Assigned at Female 06/25/2021 4:31 PM EDT Legal Sex Female 9:43 PM EDT Gender Identity Female 06/25/2021 4:31 PM EDT Sexual Orientation Not on file documented as of this encounter Functional Status * Calculated C-SSRS Risk Score (Lifetime/Recent) Answer Date of Assessment Author No Risk Indicated 05/20/2021 2:26 PM Luciano Reyez CNP * [place] Suicide Severity Rating Scale (Screener/Recent Self-Report) Question Answer Date of Assessment Author 1. Wish to be (Past 1 Month) No 05/20/2021 2:26 PM Luciano Reyez CNP 2. Non-Specific Active Suicidal Thoughts (Past 1 Month) No 05/20/2021 2:26 PM Luciano Reyez CNP 6. Suicidal Behavior (Lifetime) No 05/20/2021 2:26 PM EST Luciano Pratt George espinoza, HISTORIAN RESEARCH ASSISTANT documented as of this encounter Plan of Treatment Upcoming Encounters Date Type Department Care Team (Late st Contact Info) Description 08/30/2024 Procedure Pass [address] [address] 03/28/2025 9:30 AM EST Appointment [address] [address] Evita Ramos NP [address] [place] [id number] documented as of this encounter Visit Diagnoses Not on filedocumented in this encounter Additional Health Concerns Infection Onset Date Last Indicated Resolved Time CoV-Risk 05/20/2021 05/20/2021 05/21/2021 9:40 AM EST documented as of this encounter Care Teams Valving Machine Operator Relationship Specialty Start Date End Date Elen Bennett NP [address] [place] [id number] PCP - General Family Medicine 02/06/17 08/29/24 Evita Ramos NP [address] [place] [phone] PCP - General Nurse Practitioner 08/30/24 documented as of this encounter Additional Source Comments The information contained in this document represents components of the legal health record. It is not the complete legal health record.[facility]
--- OUTSIDE RECORDS SUMMARY | 2024-11-29 11:11 | XMS_ITS | Clinical Summary ---
Author Organization [employer] Address [address] [facility] [address] [place] [address] Care Team Providers Care Nylon Mender Name Role Phone RichardEvita ANTHONY Primary Care Provider [phone] Allergies Active Allergy Reactions Criticality Noted Date Comments Baclofen 10/21/2021 Other reaction(s): interacted with Keppra Levetiracetam Hallucinations 11/25/2024 Mirtazapine 12/12/2019 Other reaction(s): ineffective Ondansetron Headache 11/25/2024 Topiramate 07/25/2019 Other reaction(s): face swelling Tramadol Headache 11/25/2024 Medications ibuprofen 800 MG tabletIndicatio ns:Spinal stenosis, lumbar region without neurogenic claudication TAKE 1 TABLET (800 MG) BY MOUTH IF NEEDED IN THE MORNING AND AT BEDTIME FOR MILD PAIN. 120 tablet 025 2024 Active budesonide (Pulmicort) 0.5 MG/2ML nebulizer solutionIndicat ions:Mild persistent asthma without complication Take 2 mL (0.5 mg) by nebulization in the morning for 200 doses. Rinse mouth with water after use to reduce aftertaste and incidence of candidiasis. Do not swallow. 100 mL 3 025 2025 Active cholecalciferol (Vitamin D-3) 1.25 MG (86734 UT) capsule Take 1 capsule (1.25 mg) by mouth 1 (one) time per week. 12 capsule 3 025 2025 Active cyanocobalamin (Vitamin B-12) 1000 MCG/ML injectionIndica tions:Vitamin B12 deficiency without anemia Inject 1 mL (1,000 mcg) into the muscle every 30 (thirty) days. 4 mL 2 025 2025 Active fluticasone (Flonase) 50 MCG/ACT nasal sprayIndication s:Acute cough Administer 1 spray into each nostril Once per day. Shake gently. Before first use, prime pump. After use, clean tip and replace cap. 48 mL 2 Active Ventolin HFA 108 (90 Base) MCG/ACT inhalerIndicati ons:Mild persistent asthma without complication INHALE 2 PUFFS EVERY 4 TO 6 HOURS NEEDED FOR SHORTNESS OF BREATH/WHEEZE 18 g 11 Active oxyCODONE (Roxicodone) 15 MG immediate release tabletIndicatio ns:Chronic post-thoracotom y pain Take 1 tablet (15 mg) by mouth 4 times daily for 28 days. Do not start before November 18, 2024. 112 tablet 025 2024 Active aspirin-acetami nophen-caffeine (Excedrin Migraine) 250-250-65 MG tabletIndicatio ns:Migraine with persistent visual aura Take 1 tablet by mouth if needed in the morning and at bedtime for headaches. 60 tablet 1 Active aspirin 81 MG EC tabletIndicatio ns:Chronic systolic congestive heart failure (CMS/HCC) Take 1 tablet (81 mg) by mouth Once per day. 90 tablet 3 025 2025 Active atorvastatin (Lipitor) 80 MG tabletIndicatio ns:Chronic systolic congestive heart failure (CMS/HCC) Take 1 tablet (80 mg) by mouth Once per day. 90 tablet 3 025 2025 Active diazePAM (Valium) 5 MG tabletIndicatio ns:Chronic post-thoracotom y pain Take 1 tablet (5 mg) by mouth 2 times daily for 28 days. 56 tablet 025 2024 Active gabapentin (Neurontin) 400 MG capsuleIndicati ons:Migraine with persistent visual aura Take 2 capsules (800 mg) by mouth 3 times daily. 180 capsule 3 025 2024 Active omeprazole (PriLOSEC) [address] capsuleIndicati ons:Other chronic gastritis without hemorrhage Take 1 capsule (20 mg) by mouth before breakfast. Do not crush or chew. 90 capsule 1 025 2025 Active Multiple Vitamins-Minera ls (multivitamin with minerals) tabletIndicatio ns:Adult failure to thrive Take 1 tablet by mouth Once per day. 90 tablet 3 025 2025 Active amitriptyline (Elavil) 100 MG tabletIndicatio ns:Migraine with persistent visual aura Take 1 tablet (100 mg) by mouth at bedtime. 90 tablet 3 025 2024 Discontinued diazePAM (Valium) 5 MG tabletIndicatio ns:Chronic post-thoracotom y pain Take 0.5 tablets (2.5 mg) by mouth Once per day for 28 days. 14 tablet 025 2024 Discontinued(R eorder (will not trigger notification to Pharmacy)) gabapentin (Neurontin) 600 MG tabletIndicatio ns:Seizure disorder (CMS/HCC),Polya rthralgia Take 1 tablet (600 mg) by mouth 3 times daily. 90 tablet 3 025 2024 Discontinued omeprazole (PriLOSEC) [address] capsule Take 1 capsule (20 mg) by mouth before breakfast. Do not crush or chew. 90 capsule 1 025 2024 Discontinued(R eorder (will not trigger notification to Pharmacy)) oxyCODONE (Roxicodone) 15 MG immediate release tabletIndicatio ns:Chronic post-thoracotom y pain Take 1 tablet (15 mg) by mouth 4 times daily for 28 days. 112 tablet 025 2024 Discontinued(R eorder (will not trigger notification to Pharmacy)) traZODone (Desyrel) 100 MG tabletIndicatio ns:Insomnia, unspecified Take 1 tablet (100 mg) by mouth at bedtime. 90 tablet 3 025 2024 Discontinued diazePAM (Valium) 5 MG tabletIndicatio ns:Chronic post-thoracotom y pain Take 0.5 tablets (2.5 mg) by mouth Once per day for 28 days. Do not start before November 18, 2024. 14 tablet 025 2024 Discontinued(R eorder (will not trigger notification to Pharmacy)) aspirin 81 MG EC tablet Take 81 mg by mouth Once per day. 2024 Discontinued(R eorder (will not trigger notification to Pharmacy)) atorvastatin (Lipitor) 80 MG tablet Take 80 mg by mouth Once per day. 2024 Discontinued(R eorder (will not trigger notification to Pharmacy)) levETIRAcetam (Keppra) 500 MG tablet Take 500 mg by mouth Once per day. 2024 Discontinued Multiple Vitamins-Minera ls (multivitamin with minerals) tablet Take 1 tablet by mouth Once per day. 2024 Discontinued(R eorder (will not trigger notification to Pharmacy)) Active Problems Problem Noted Date Diagnosed Date Severely underweight adult 11/27/2024 Assessment & Plan (11/27/2024 9:17 AM EDT): - patient chronically underweight with recent weight loss secondary to hospital stay - her appetite is back and she is eating a lot at home - will also supplement with Ensure nutritional shakes to support weight gain - consider GI referral at follow up Orders: General supply request: Ensure nutritional drinks, two per day, Dx: adult failure to thrive, severely underweigth adult Adult failure to thrive 11/25/2024 Assessment & Plan (11/27/2024 9:17 AM EDT): - despite efforts to support weight gain, continues to be underweight - will benefit from additional caloric intake, will prescribe Ensure to support weight gain - continue multivitamin Orders: Multiple Vitamins-Minerals (multivitamin with minerals) tablet; Take 1 tablet by mouth Once per day. General supply request: Ensure nutritional drinks, two per day, Dx: adult failure to thrive, severely underweigth adult Chronic systolic congestive heart failure 2024 Assessment & Plan (11/27/2024 9:17 AM EDT): - patient has asymptomatic elevated BP today but is euvolemic and overall feeling great - reviewed medications from discharge, no changes today - refer to Cardiology for management assistance - close follow up, if still hypertensive at follow up will consider PCP starting pharmacotherapy Orders: Referral to Cardiology; Future aspirin 81 MG EC tablet; Take 1 tablet (81 mg) by mouth Once per day. atorvastatin (Lipitor) 80 MG tablet; Take 1 tablet (80 mg) by mouth Once per day. Insomnia, unspecified 07/26/2024 Assessment & Plan (07/26/2024 4:04 PM EDT): - refill Trazodone as it is currently effective for sleep Abnormal chest CT 11/16/2023 Overview (01/12/2024): LDCT October 2023 with ground glass opacity and mediastinal lymphadenopathy, possibly due to active infection, treated with antibiotics. Scheduled for Pulm consult and repeat imaging. Assessment & Plan (01/12/2024 1:52 PM EDT): - Patient has been referred to a sheet metal superintendent and has an appointment scheduled for February 21. Another scan is also planned. - Await pulmonology consultation and results of the next scan. Assessment & Plan (11/16/2023 12:16 PM EDT): Lung Infection (Pneumonia) - Based on the CT scan results and the patient's symptoms of feeling unwell and coughing, will treat for lung infection, possible pneumonia - Prescription of antibiotics (Z-Eloy: azithromycin, two tablets on the first day and then one a day for four more days). Follow-up appointment on January 11. If symptoms do not improve, patient is advised to call - will consider diagnostic CT at follow up Mild Cardiomegaly - The CT scan shows mild enlargement of the heart, a condition known as cardiomegaly. - Order an echocardiogram to further investigate the heart enlargement. Follow- up appointment on January 11. Mild cardiomegaly 11/16/2023 Overview (01/12/2024): Seen on LDCT October 2023 Assessment & Plan (07/26/2024 3:43 PM EDT): - Mild cardiomegaly noted on previous CAT scan. - Reorder echocardiogram to assess heart function and structure. Assessment & Plan (01/12/2024 1:51 PM EDT): - Cardiomegaly noted on previous imaging. Patient reports family history of heart problems. - Referred Echocardiogram has been approved and patient will call to schedule At risk for polypharmacy 10/14/2023 Assessment & Plan (10/14/2023 10:06 AM EDT): Patient has multiple sedating meds on her med list. She has been on this regimen for a long time, predating my time as PCP. We will continue to slowly address med changes, prioritizing the benzodiazapine and seizure history as med changes per Neuro may influence other med changes we make. Will further address each visit. Polyarthralgia 10/12/2023 Assessment & Plan (07/26/2024 3:46 PM EDT): - chronic back and joint pains with frailty/underweight - need for DME due to fall risk including shower head and quad tipped cane Assessment & Plan (10/14/2023 9:50 AM EDT): - Patient reports ongoing severe pain in right hip, and wrists and right shoulder. Patient also has mobility issues and fears falling. Patient is pursuing a scooter to prevent injury from fall - Referral to [facility] for joint pain. - Will also refer to physical therapy office for mobility issues to eval for scooter - Will attempt to contact patient's CCA nurse, Christi, to discuss scooter denial. Thrush 07/31/2023 Assessment & Plan (07/31/2023 3:12 PM EDT): Encouraged to wash mouth after inhaler use Continue salt water gargles Trial Fluconazole 150mg x 2 doses 3 days apart Call back if symptoms don't improve Stage 3a chronic kidney disease 06/17/2023 Urethral prolapse 06/15/2023 Assessment & Plan (06/16/2023 2:11 PM EST): Suspected urethral prolapse on exam today Referred to UroGYN in [place] for consult Gastritis 03/16/2023 Assessment & Plan (11/27/2024 9:17 AM EDT): - refilled Omeprazole Orders: omeprazole (PriLOSEC) [address] capsule; Take 1 capsule (20 mg) by mouth before breakfast. Do not crush or chew. Chronic back pain 05/20/2021 Overview (03/18/2023): Note: Myofascial pain, ? Fibromyalgia, h/o hip fracture On contract for Oxycodone 15mg QID, signed Mar 2023 Assessment & Plan (04/29/2024 1:30 PM EST): - continue Oxycodone for now. Currently prioritizing benzo taper. Will re-visit chronic pain management plan in the future. - tox screen today Assessment & Plan (01/12/2024 1:59 PM EDT): - Patient is currently on oxycodone for pain management. - Discussion of long-term risks of oxycodone use. Plan to eventually reduce oxycodone use, but no immediate changes. -Offered Toradol injection for additional pain control. Increase in gabapentin dosage to potentially help with pain and seizure control. - Risks/Side effects: Increased risk of adverse effects with long-term use of oxycodone, especially in combination with diazepam. Mobility issues - Patient reports needing a new cane and is interested in obtaining a scooter for mobility. Patient lives on the second floor, which may complicate scooter use. - Order for a new cane has been placed. - Referral to physical therapy for a wheelchair evaluation, which also covers scooters. Discussion of potential need for handicap accessible housing and willingness to write a letter to support this. Assessment & Plan (03/18/2023 10:56 AM EST): - contract and tox screen today - continue current meds for now, with intent to eventually come off chronic opiates - may benefit from further detailed physical evaluation, imaging in the future Anxiety and depression 05/20/2021 Overview (06/16/2023): Stable on elavil and trazodone Assessment & Plan (06/16/2023 2:14 PM EST): Due for labs to monitor kidney/liver function related to chronic med use Seizure disorder 05/20/2021 Overview (04/20/2024): Intolerant of Keppra in the past, followed most recently by Neurology at [facility], Jeanette Byers [facility]IN[facility] [employer] Currently maintained on Diazepam 5mg TID, tapering off due to co-administratio of opiates as of Jan 2024 Per Neuro visit 03/29/24: rec tilt table testing, increase Gabapentin to 3000mg TID, consider further titration as needed and tolerated Continues on Amitryptiline for migraines Assessment & Plan (11/27/2024 9:17 AM EDT): - stable and no seizure activity since last vist - ok to stay off Keppra - increasing Gabapentin to 800mg TID - continue Diazepam at 5mg - follow up with Neuro as scheduled Assessment & Plan (07/26/2024 4:05 PM EDT): - encouraged to further decrease Diazpeam to 2.5mg every day or every other day - goal remains to discontinue Diazepam all together as she is on chronic opiates - encouraged patient to continue to follow up with neuro about her sensation of aura and general seizure management. - increase Gabapentin to 600mg TID to further treat seizures - advised I would send my clinic note to her Neurologist Assessment & Plan (04/29/2024 1:31 PM EST): - Gabapentin is being used as a seizure medication. Current dose is 300 mg in the morning and 300 mg in the evening. - Increase gabapentin to 600 mg in the evening for a few days, then 600 mg in the morning and 600 mg in the evening. Monitor for side effects. Plan to reduce diazepam dosage gradually. - Risks and side effects: Monitor for excessive sleepiness and dry mouth. - decrease Diazepam to 5mg every day at next refill Assessment & Plan (01/12/2024 1:58 PM EDT): - Patient is currently using diazepam for seizure control. However, given that she is also Oxycodone we are going to slowly taper off diazepam as this isn't ideal anti-seizure agent and patient would prefer to be on Oxycodone - Gradual reduction of diazepam dosage, starting with a reduction to 5mg-5mg-2.5mg as opposed to 5mg TID. - Advised I will ask my referrals team to reach out to her Neurologist about getting a sooner appointment as she should not go without seizure medications - Risks/Side effects: Risk of triggering seizures or mood changes with reduction of diazepam. Assessment & Plan (10/14/2023 9:52 AM EDT): - Patient reports having seizures, with the most recent one occurring in August. Patient is currently on diazepam, which is not the best seizure medication. - Recommend patient to make an appointment with [facility] to discuss changing seizure medication. Diazepam should be slowly weaned off while introducing a new medication. - Risks and side effects: Diazepam has long-term effects and can cause weakness. Assessment & Plan (06/16/2023 2:10 PM EST): Encouraged to keep appt with Neuro for assessment of treatment regimen Assessment & Plan (03/18/2023 10:54 AM EST): - discussed that Diazepam is not a first line treatment for seizures and should be managed by Neurology, even if scripts are sent by PCP - strongly encouraged patient make follow up with Neurology, will enter referral back to Shalonda Byers at [facility] Smoker 05/20/2021 Assessment & Plan (11/27/2024 9:17 AM EDT): - praised patient for quitting! Encouraged to maintain abstinence Assessment & Plan (10/14/2023 9:52 AM EDT): - Patient missed a scheduled CAT scan for lung cancer screening. - Will reschedule CAT scan for lung cancer screening. Obstructive sleep apnea syndrome 07/12/2019 Migraine with persistent visual aura 06/21/2019 Assessment & Plan (11/27/2024 9:17 AM EDT): - reviewed rebound headaches and risk of bleeding with NSAIDs and aspirin - can continue Excedrin minimally for now, encouraged to limit this as well as Ibuprofen - hopefully Gabapentin will help prevent QUEZADA - continue to monitor, discuss with Neuro Orders: [id number] (Excedrin Migraine) 250-250-65 MG tablet; Take 1 tablet by mouth if needed in the morning and at bedtime for headaches. gabapentin (Neurontin) 400 MG capsule; Take 2 capsules (800 mg) by mouth 3 times daily. Assessment & Plan (04/29/2024 1:31 PM EST): - refilled Amitryptiline 100mg - ok to continue PRN Excedrin Spinal stenosis of lumbar region 06/21/2019 Asthma 06/15/2019 Assessment & Plan (07/26/2024 4:01 PM EDT): - needs nebulizer tubing, will try to get this for her - refill Pulmicort nebulizer solution and Ventolin inhaler Assessment & Plan (04/29/2024 1:29 PM EST): - patient requesting med refills, sent Vitamin B12 deficiency without anemia 06/15/2019 Assessment & Plan (07/26/2024 3:45 PM EDT): - continue injectable B12, script up to date Assessment & Plan (10/14/2023 9:52 AM EDT): - Patient reports needing B12 injections refill, which they have not been receiving from [facility]. - Will send a refill for B12 injections. Pathological fracture of right hip 06/20/2018 Overview (06/16/2023): Note: d/t fall, s/p surgical repair On chronic opiates for pain, tox screen today Assessment & Plan (10/14/2023 9:51 AM EDT): Continue current opioid pain regimen for now, further med management in the future to reduce risks of polypharmacy Assessment & Plan (06/16/2023 2:15 PM EST): Will prescribe quad-tipped cane for mobility Add Diclofenac Gel PRN for pain Uncomplicated opioid dependence 12/29/2017 Overview (11/14/2022): Contract UTD and signed with Grace Bennett. Last tox 11/14 - appropriate Encounters Date Type Department Care Team Description 11/29/[address] [phone] Evita Ramos NP 11/28/[address] [phone] Evita Ramos NP 11/25/2024 2:00 PM EDT Office Visit [address] [phone] Evita Ramos NP Chronic systolic congestive heart failure (CMS/HCC) (Primary Dx); Encounter for long-term (current) use of medications; Adult failure to thrive; Seizure disorder (CMS/HCC); Migraine with persistent visual aura; Smoker; Other chronic gastritis without hemorrhage; Severely underweight adult; Chronic post-thoracotomy pain 2024 Patient Outreach [address] [phone] Dang Gilbert LPN Transition Of Care (Tcm) [address] [phone] Evita Ramos NP 11/14/[address] [phone] Evita Ramos NP Chronic post-thoracotomy pain 10/19/[address] [phone] Evita Ramos NP Migraine with persistent visual aura; Mild persistent asthma without complication; Vitamin B12 deficiency without anemia; Chronic post-thoracotomy pain; Acute cough; Seizure disorder (CMS/HCC); Polyarthralgia; Insomnia, unspecified 10/13/[address] [phone] Evita Ramos NP Spinal stenosis, lumbar region without neurogenic claudication 09/27/[address] [phone] Evita Ramos NP Chronic post-thoracotomy pain 08/30/[address] [phone] Evita Ramos NP Chronic post-thoracotomy pain from Last 3 Months Immunizations Immunization Administration Dates Next Due Hep B, Adolescent or Pediatric 08/10/2018 Hep B, adult 06/15/2018 INFLUENZA VACCINE QUADRIVALE NT RECOMBINANT PRESERVATIVE FREE RIV4 12/11/2017 Influenza injectable quadriv alent preservative free 03/16/2023,01/13/2022,03/15/2021,01/25,05/14/2017,01/27/2017,03/10/2016 ,02/01/2015,12/23/2013 Influenza, IIV3, injectable 02/06/2020,0 06/20/2015,03/16/2012,01/03,01/10/2010 Influenza, Unspecified 01/11/2013 Influenza, seasonal, injecta ble, preservative free 01/12/2024 Pfizer Covid-19 Vaccine 12+ 10/21/2021, Pfizer Covid-19 Vaccine 12+ jerardo-sucrose (Bob Cap) 10/21/2021 Pneumococcal Conjugate PCV 20 10/12/2023 Pneumococcal Polysaccharide PPSV23 05/05/2014 Td (adult) 01/09/2007 Tdap 01/13/2022,10/19/2018,01/27/2017 Zoster, Recombinant 12/31/2017 Social History Tobacco Use Types Packs/Day Years Used Date Smoking Tobacco: Every Day Cigarettes 0.5 40 Smokeless Tobacco: Never Tobacco Cessation:Ready to Q uit: Not Asked; Counseling Given: Not Answered Alcohol Use Standard Drinks/Week Comments Never 0 (1 standard drink = 0.6 oz pur e alcohol) Alcohol Answer Date Recorded How often do you have a drink containing alcohol ? 0 01/12/2024 How many drinks containing a lcohol do you have on a typical day when you are drinking? 0 01/12/2024 How often do you have six or more drinks on one occasion? 0 01/12/2024 Housing Stability Answer Date Recorded What is your housing situation today? I have sharon reid 04/26/[address] you li ve. Do you have problems with any of the following? None of the above 04/26/2024 Food Insecurity Answer Date Recorded Within the past 12 months, y ou worried that your food would run out before you got money to buy more: Sometimes True 2024 Within the past 12 months,th e food you bought just didn't last and you didn't have enough money to get more: Sometimes True 04/26/2024 Transportation Answer Date Recorded In the past 12 months, has l ack of transportation kept you from medical appts, meetings, work or from getting things needed for daily living? No 04/26/2024 Intimate Partner Violence Answer Date R ecorded Within the last year, have y ou been afraid of your partner or ex-partner? 2 03/16/2023 Within the last year, have y ou been humiliated or emotionally abused in other ways by your partner or ex-partner? 2 Within the last year, have y ou been kicked, hit, slapped, or otherwise physically hurt by your partner or ex-partner? 2 03/16/2023 Within the last year, have y ou been raped or forced to have any kind of sexual activity by your partner or ex-partner? 2 03/16/2023 Utilities Answer Date Recorded In the past 12 months, has t he electric, gas, oil or water company threatened to shut off services in your home? Yes 04/26/2024 Depression Answer Date Recorded Patient Health Questionnaire-2 Score 0 04/26/2024 Internet Access Answer Date Recorded Internet Access Q1 Yes 01/12/2024 Internet Access Q2 Not on file 01/12/2024 Comments No Sex and Gender Information Value Date Recorded Sex Assigned at Female 06/09/2022 8:22 AM EST Legal Sex Female 6:22 PM EDT Gender Identity Female 02/07/2022 6:22 PM EDT Sexual Orientation Straight 02/07/2022 6: 22 PM EDT Last Filed Vital Signs Vital Sign Reading Time Taken Comments Blood Pressure 170/67 11/25/2024 2:16 PM EDT Pulse 95 11/25/2024 2:16 PM EDT Temperature 35.9 C (96.7 F) 07/25/2024 10:26 AM EDT Respiratory Rate - - Oxygen Saturation 98% 11/25/2024 2:16 PM EDT Inhaled Oxygen Concentration - - Weight 40 kg (88 lb 3.2 oz) 11/25/2024 2:16 PM E DT Height 154 cm (5' 0.63 ) 04/26/2024 1:46 PM EST Body Mass Index 16.87 04/26/2024 1:46 PM EST Plan of Treatment Upcoming Encounters Date Type Department Care Team ([facility] st Contact Info) Description 01/13/2025 1:00 PM EDT Office Visit [facility] [address] [place] [phone] Evita Ramos, ANTHONY [address] [place], [place] [phone] Health Maintenance Due Date Last Done Comments CT Colonography 1963 FIT DNA/Cologuard 1963 FIT 1963 FOBT 1963 Sigmoidoscopy 1963 Disability Screening 1963 Mammogram 2003 Zoster Vaccines (2 of 2) 02/25/2018 12/31/2017 Hepatitis B Vaccines (2 of 3 - 19+ 3-dose series) 09/07/2018 08/10/2018, 06/15/2018 RSV Patients and Patients Aged 60 years or older (1 - Risk 60-74 years 1-dose series) 2023 Influenza Vaccine (#1) 2024 , 03/16/2023, 01/13/2022, Additional history exists COVID-19 Vaccine ( season) 2025 10/21/2021, 10/21/2021, 02/02/2021 Postponed from 12/13/2023 (Patient Refused) Alcohol/Substance Use Screening 01/11/2025 01/12/2024 Lung Cancer Screening 02/07/2025 02/08/2024, 024 Depression Screening 04/26/2025 04/26/2024, 04/26/19 25 SDOH Screening 04/26/2025 04/26/2024 Tobacco Screening 07/25/2025 07/25/2024 Lipid Panel 11/30/2025 11/30/2020, 03/15/2020 Colonoscopy 09/02/2027 09/01/2022 Colorectal Cancer Screening 09/02/2027 Cervical Cancer Screening 06/14/2028 HPV/Cotest 06/14/2028 06/15/2023 Pap Smear 06/14/2028 06/15/2023, 01/13/2022 DTaP/Tdap/Td Vaccines (4 - Td or Tdap) 01/14/2032 01/13/2022, 10/19/2018, 01/27/2017, Additional history exists Pneumococcal Vaccine: 50+ Years Completed 10/12/2023, 05/05/2014 HIV Screening Completed 07/25/2024, 06/2021, 03/15/2020 Hepatitis C Screening Completed 07/25/2024, 022 HIB Vaccines Aged Out No longer eligi ble based on patient's age to complete this topic HPV Vaccines Aged Out No longer eligi ble based on patient's age to complete this topic Hepatitis A Vaccines Aged Out No long er eligible based on patient's age to complete this topic IPV Vaccines Aged Out No longer eligi ble based on patient's age to complete this topic Meningococcal B Vaccine Aged Out No l onger eligible based on patient's age to complete this topic Meningococcal Vaccine Aged Out No jomar rosalino eligible based on patient's age to complete this topic RSV under 20 months Aged Out No longe r eligible based on patient's age to complete this topic Rotavirus Vaccines Aged Out No longer eligible based on patient's age to complete this topic Procedures Procedure Name Priority Date/Time Associated Diagnosis Comments POCT JOSEPH-14 URINE DRUG SCREEN Routine 11/25/2024 2:28 PM EDT Encounter for long-term (current) use of medications HEPATITIS C AB W/REFL TO HCV RNA, QN, PCR Routine 07/25/2024 11:29 AM EDT Screening examination for STI HIV 1/2 ANTIGEN/ANTIBODY, FOURTH GENERATION W/RFL Routine 07/25/2024 11:29 AM EDT Screening examination for STI LDCT LUNG SCREENING Routine 02/08/[address] IMAGE-GUIDED PAP W/AGE BASED SCR,W/CT/NG/TRICH Routine 06/15/2023 12:00 AM EST Screening for cervical cancer Routine screening for STI (sexually transmitted infection) HM COLONOSCOPY Routine 09/01/2022 10:49 AM EDT LIPID PANEL WITH REFLEX TO DIRECT LDL Routine 11/30/2020 10:07 AM EDT from Last 3 Months or Most Recently Relevant to Health Maintenance Results * Hepatitis C Antibody with Reflex to HCV, RNA, Quantitative, Real-Time PCR (07/25/2024 11:29 AM EDT) Hepatitis C Antibody NON-REACT SHANELLE NON-REACT SHANELLE [facility] [employer] [employer] Comment: HCV antibody was non-reactive. There is no laboratory evidence of HCV infection. In most cases, no further action is required. However, if recent HCV exposure is suspected, a test for HCV RNA (test code 26733) is suggested. For additional information please refer to http://education.LogicTree/faq/ZAH96r4 (This link is being provided for informational/ educational purposes only.) Blood Venous blood specimen / Unknown 07/25/2024 11:29 AM EDT 07/25/2024 11:29 AM EDT us Evita Ramos NP LAB BLOOD ORDERABLES Final Resul t [facility] [address], [place] [address] [facility] [address] [place] [address] * HIV-1/2 Antigen and Antibodies, Fourth Generation, with Reflexes (07/25/2024 11:29 AM EDT) Pathologist [facility] HIV Antigen/Antibody, 4th Generation NON-REAC TIVE NON-REAC TIVE [facility] [place] [employer] [facility] Comment: HIV-1 antigen and HIV-1/HIV-2 antibodies were not detected. There is no laboratory evidence of HIV infection. PLEASE NOTE: This information has been disclosed to you from records whose confidentiality may be protected by state law. If your state requires such protection, then the state law prohibits you from making any further disclosure of the information without the specific written consent of the person to whom it pertains, or as otherwise permitted by law. A general authorization for the release of medical or other information is NOT sufficient for this purpose. For additional information please refer to http://education.LogicTree/faq/SSN737 (This link is being provided for informational/ educational purposes only.) The performance of this assay has not been clinically validated in patients less than 2 years old. Blood Venous blood specimen / Unknown 07/25/2024 11:29 AM EDT 07/25/2024 11:29 AM EDT us Evita Ramos NP LAB BLOOD ORDERABLES Final Resul t [facility] [address], [place] [address] [facility] [address] [place] [address] * CT Lung Screening Low dose (02/08/2024) Anatomical Region Laterality Modality Lung Computed Tomogra phy Result Germaine Ramos NP IMG CT PROCEDURES Final Result * Image-Guided Pap with Age-Based Screening??with CT/NG,??Trichomonas (06/15/2023 12:00 AM EST) Comment [facility] Comment: This order for age-based cervical cancer and STI screening follows ACOG guidelines(PB 168, 140, FGM282). See individual assays for performing site location. Clinical Information: [facility] Comment:SCREENING PAP LMP: [facility] Comment:NONE GIVEN Prev. PAP: [facility] Comment:NONE GIVEN Prev. BX: [facility] Comment:NONE GIVEN SOURCE: [facility] Comment:None given Statement Of Adequacy: [facility] Comment: Satisfactory for evaluation. Endocervical/transformation zone component absent. Interpretation/Res ult: [facility] Comment: Cytology Results: Negative for intraepithelial lesion or malignancy. Infection [facility] [place] [facility] Comment: Shift in vaginal [place]ol[place] suggestive of bacterial vaginosis. COMMENT: [facility] Comment: This Pap test has been evaluated with computer assisted technology. [employer] Hand: [facility] Comment: BK,CT(ASCP) CT screening location: [address] Review [employer] Farm Hand: [facility] Comment: RK, CT(ASCP) CT screening location: [address] [address] (Always Message) Que [facility] Comment: EXPLANATORY NOTE: The Pap is a screening test for cervical cancer. It is not a diagnostic test and is subject to false negative and false positive results. It is most reliable when a satisfactory sample, regularly obtained, is submitted with relevant clinical findings and history, and when the Pap result is evaluated along with historic and current clinical information. HPV nRNA E6/E7 Not Detected Not Detected [facility] Comment: Methodology: Technical Sales Representative-Mediated Amplification This assay detects E6/E7 viral messenger RNA (mRNA) from 14 high-risk HPV types (16,18,31,33,35,39,45,51,52,56,58,59,66,68). Cervical sources are required for HPV testing. If a vaginal source from a patient who has had a total hysterectomy with removal of cervix was submitted, please contact the testing laboratory for alternative testing options. For additional information, please refer to http://education.LogicTree/faq/VOX305w1 (This link if provided for information/ educational purposes only.) Chlamydia trachomatis RNA, TMA, Urogenital NOT DETECTED NOT DETECTED [facility] [place] [facility] Neisseria gonorrhoeae RNA, TMA, Urogenital NOT DETECTED NOT DETECTED [facility] (Always Message) Que [facility] [place] [facility] Comment: The analytical performance characteristics of this assay, when used to test SurePath(TM) specimens have been determined by [facility]. The modifications have not been cleared or approved by the FDA. This assay has been validated pursuant to the CLIA regulations and is used for clinical purposes. For additional information, please refer to https://education.LogicTree/faq/MTB004 (This link is being provided for information/ educational purposes only.) Trichomonas vaginalis, QL, TMA, PAP Vial NOT DETECTED NOT DETECTED [facility] Comment: The analytical performance characteristics of this assay have been determined by [facility]. The modifications have not been cleared or approved by the FDA. This assay has been validated pursuant to the CLIA regulations and is used for clinical purposes. For additional information, please refer to http://AskBot.LogicTree/ faq/Trichomonastma (This link is being provided for information/ educational purposes only.) 06/15/2023 06/16/2023 8:0 2 AM EST us Evita Ramos NP LAB CYTOLOGY ORDERABLES Final Re sult [facility] [address], [place] [address] [facility] [place] [employer] [address] [place] [address] * Hm Colonoscopy (09/01/2022 10:49 AM EDT) Not In System Provider HEALTH MAINTENANCE Edited Result - Final * (ABNORMAL) LIPID PANEL W REFLEX TO DLDL (11/30/2020 10:07 AM EDT) Cholesterol, Total 210(H) (<200) MG/DL [facility] Triglycerides 174(H) (<150) MG/DL [facility] HDL Cholesterol 30(L) (>39) MG/DL [facility] LDL Cholesterol Calculated 145(H) (0-130) MG/DL [facility] Non-HDL Cholesterol 180(H) (<160) MG/DL [facility] Chol/HDLC Ratio 7.0(H) (<5.0) [facility] 11/30/2020 10:0 7 AM EDT us Historical Provider MD LAB BLOOD ORDERABLES Cynthia l Result [facility] [address] from Last 3 Months or Most Recently Relevant to Health Maintenance Insurance [facility] STANDARD [facility] ONE CARE < 65 Care Teams Nylon Mender Relationship Specialty Start Date End Date Ramos, Evita, V[employer] [address] [place] [phone] PCP - General Family Medicine 01/01/23
--- OUTSIDE RECORDS SUMMARY | 2024-11-29 11:12 | XMS_ITS | Clinical Summary ---
Author Organization [facility] Address [address] [place] [address] Care Team Providers Care Plastic Tubing Insulation Supervisor Name Role Phone Karin Kramer DMD Primary Care Provider [phone] Source Comments PLEASE NOTE, if this patient is a minor, it may be UNLAWFUL to discuss sensitive information that is contained in these records (such as FAMILY PLANNING, MENTAL HEALTH or SUBSTANCE ABUSE) with the minor patient's parent or other person without the patient's specific authorization.[facility] Medications ibuprofen (ADVIL,MOTRIN) 600 mg tabletIndication s:Pulpitis Take 1 Tab by mouth 4 (four) times daily as needed for pain 20 Tab 01/28/2017 Active Active Problems No known active problems Encounters Date Type Department Care Team Description 11/28/2024 4:20 PM EDT Office Visit [facility] [address] [place] [phone] Parth Taylor DDS Arrived from Last 3 Months Social History Tobacco Use Types Packs/Day Years Used Date Smoking Tobacco: Every Day Cigarettes Smokeless Tobacco: Former Tobacco Cessation:Ready to Q uit: Not Asked; Counseling Given: Not Answered Social Connections Answer Date Recorded Connectedness 0 12/31/2023 Financial Resource Strain Answer Date R ecorded Financial Resource Strain 0 2021 Stress Answer Date Recorded Stress 0 03/28/2022 Physical Activity Answer Date Recorded Physical Activity 0 03/28/2022 Food Insecurity Answer Date Recorded Food 0 01/07/2024 Transportation Needs Answer Date Record ed Transportation 0 03/28/2022 Housing Stability Answer Date Recorded Housing 0 03/28/2022 Safety and Environment Answer Date Edouard rded Safety 0 03/28/2022 Utilities Answer Date Recorded Utilities 0 03/28/2022 Employment Answer Date Recorded Stress 0 12/31/2023 Comments Unknown Sex and Gender Information Value Date Recorded Sex Assigned at Not on file Legal Sex Female 6:02 AM PDT Gender Identity Not on file Sexual Orientation Not on file Last Filed Vital Signs Vital Sign Reading Time Taken Comments Blood Pressure 171/87 11/28/2024 4:32 PM EDT Pulse 95 11/28/2024 4:32 PM EDT Temperature - - Respiratory Rate - - Oxygen Saturation - - Inhaled Oxygen Concentration - - Weight - - Height - - Body Mass Index - - Plan of Treatment Health Maintenance Due Date Last Done Comments Anxiety Screening 1963 Dental FMX/Pano 1963 HPV Screening 1965 Pap + HPV 1963 Tobacco Cessation Counseling (#24) 1965 04/19/2019, 02/24/2019, 01/25/2019, Additional history exists Medicare Annual Wellness Visit 11/22/1981 Cervical Cancer Screening 11/22/1984 Pap Smear 11/22/1984 Breast Cancer Screening (Mammogram) 2003 CT Colonography 11/22/2008 Colonoscopy 11/22/2008 Colorectal Cancer Screening 11/22/2008 FIT/gFOBT 11/22/2008 Fecal DNA 11/22/2008 Flexible Sigmoidoscopy 11/22/2008 Imm-Zoster, Recombinant (2 of 2) 02/25/2018 01/01/20 18 Dental Perio Charting 11/13/2023 11/10/2022, 022 Dental Prophy 11/13/2023 11/10/2022, 03/29/2022 [id number] ( season) 2023 022, 02/02/2021 Alcohol and Drug Screen 04/13/2024 Depression Annual Screen 04/13/2024 Imm-Influenza (#1) 2024 01/12/2024, 1 05/17/2022, 01/13/2022, Additional history exists Diabetes Screening 11/14/2025 11/14/2024, 0 11/13/2024, 11/12/2024, Additional history exists Hypertension Screening (#1) 11/28/2025 Dental Examination 11/30/2025 11/28/2024, 0 11/10/2022, 03/29/2022 Lipid Screening 10/28/2029 10/28/2024 Imm-DTaP/Tdap/Td (4 - Td or Tdap) 01/14/2032 01/13/2022, 10/19/2018, 01/27/2017 Imm-Pneumococcal 50+ Completed 10/12/2023, 05/05/19 15 HIV Screening Completed 11/09/2024, 07/12, 07/25/2024 Hepatitis C Screening Completed 11/09/2024, 025 Cervical Ablation/Cold-Knife Conization Discontinued Cervical Cryotherapy Discontinued Colposcopy Discontinued Endometrial Biopsy Discontinued Excision/Leep Discontinued HPV Genotyping Discontinued Vaginal Pap Discontinued Vulvoscopy Discontinued Procedures Procedure Name Priority Date/Time Associated Diagnosis Comments PERIODIC ORAL EVALUATION ESTABLISHED PATIENT Routine 11/28/2024 4:20 PM EDT Encounter for dental examination DENTAL CASE MANAGEMENT - MOTIVATIONAL INTV Routine 11/28/2024 4:20 PM EDT Partial edentulism, unspecified edentulism class CARIES RISK ASSESSMENT & DOC FINDING HIGH RISK Routine 11/28/2024 4:20 PM EDT At high risk for dental caries NUTRITIONAL COUNSELING CONTROL OF DENTAL DISEASE Routine 11/28/2024 4:20 PM EDT At high risk for dental caries ORAL HYGIENE INSTRUCTIONS Routine 11/28/2024 4:20 PM EDT At high risk for dental caries ORAL CANCER SCREENING Routine 11/28/2024 4:20 PM EDT Encounter for dental examination COMP PERIODONTAL EVALUATION - NEW/EST PATIENT Routine 11/10/2022 11:00 AM EDT Encounter for dental examination and cleaning without abnormal findings PROPHYLAXIS - ADULT Routine 11/10/2022 1 1:00 AM EDT Encounter for dental examination and cleaning without abnormal findings from Last 3 Months or Most Recently Relevant to Health Maintenance Insurance [place] MEDICAID DENTAL [facility] Care Teams Plastic Tubing Insulation Supervisor Relationship Specialty Start Date End Date Karin Kramer DMD [address] [place] [phone] PCP - General Dental Dining Room Attendant 11/21/19
--- OUTSIDE RECORDS SUMMARY | 2024-11-29 11:12 | XMS_ITS ---
Author Name [facility] Organization Unknown Results Test Name/Text Value Interpretation Date Range Source Glucose Bld-mCnc 122.0 mg/dL 11/15/2024 70 - 199 [facility] Phosphate SerPl-mCnc 3.5 mg/dL 11/15/2024 2.5 - 4.5 [facility] Magnesium SerPl-mCnc 1.9 mg/dL 11/15/2024 1.7 - 2.8 [facility] Hgb Bld-mCnc 9.5 g/dL Below low normal 11/15/2024 12.5 - 16 [facility] RDW RBC Auto 14.4 % 11/15/2024 12.1 - 16.2 [facility] Hct VFr Bld Auto 28.3 % Below low normal 11/15/2024 37 - 47 [facility] WBC # Bld Auto 8.2 K/mcL 11/15/2024 4 - 10.5 [facility] MCH RBC Qn Auto 29.0 pcg 11/15/2024 25 - 33 [facility] PMV Bld Auto 7.7 FL 11/15/2024 7.4 - 11.4 [facility] RBC Auto 86.8 FL 11/15/2024 78 - 100 [facility] MCHC RBC Auto-EntMCnc 33.4 g/dL 11/15/2024 32 - 36 [facility] Platelet # Bld Auto 678.0 K/mcL Above high normal 11/15/2024 150 - 450 [facility] RBC # Bld Auto 3.26 M/mcL Below low normal 11/15/2024 4.2 - 5.4 [facility] Glucose Bld-mCnc 129.0 mg/dL 11/15/2024 70 - 199 [facility] Glucose Bld-mCnc 173.0 mg/dL 11/14/2024 70 - 199 [facility] eGFRcr SerPlBld CKD-EPI 2020 103.0 mL/min/1.73m2 11/14/2024 - [facility] Glucose SerPl-mCnc 129.0 mg/dL 11/14/2024 70 - 199 [facility] CO2 SerPl-sCnc 26.0 mmol/L 11/14/2024 24 - 32 [facility] Anion Gap SerPl Calc-sCnc 11.0 11/14/2024 5 - 14 [facility] Calcium SerPl-mCnc 9.9 mg/dL 11/14/2024 8.4 - 10.2 [facility] Potassium SerPl-sCnc 3.5 mmol/L 11/14/2024 3.5 - 5.1 [facility] Sodium SerPl-sCnc 133.0 mmol/L Below low normal 11/14/2024 1 35 - 145 [facility] BUN/Creat SerPl 36.7 Above high normal 11/14/2024 12 - 20 [facility] BUN SerPl-mCnc 22.0 mg/dL Above high normal 11/14/2024 7 - 1 7 [facility] Creat SerPl-mCnc 0.6 mg/dL 11/14/2024 0.5 - 1 [facility] Chloride SerPl-sCnc 96.0 mmol/L Below low normal 11/14/2024 98 - 107 [facility] Glucose Bld-mCnc 140.0 mg/dL 11/14/2024 70 - 199 [facility] CO2 SerPl-sCnc 28.0 mmol/L 11/14/2024 24 - 32 [facility] Calcium SerPl-mCnc 9.7 mg/dL 11/14/2024 8.4 - 10.2 [facility] Glucose SerPl-mCnc 114.0 mg/dL 11/14/2024 70 - 199 [facility] Anion Gap SerPl Calc-sCnc 8.0 11/14/2024 5 - 14 [facility] Creat SerPl-mCnc 0.6 mg/dL 11/14/2024 0.5 - 1 [facility] BUN SerPl-mCnc 22.0 mg/dL Above high normal 11/14/2024 7 - 1 7 [facility] Chloride SerPl-sCnc 96.0 mmol/L Below low normal 11/14/2024 98 - 107 [facility] Sodium SerPl-sCnc 132.0 mmol/L Below low normal 11/14/2024 1 35 - 145 [facility] eGFRcr SerPlBld CKD-EPI 2020 103.0 mL/min/1.73m2 11/14/2024 - [facility] Potassium SerPl-sCnc 3.7 mmol/L 11/14/2024 3.5 - 5.1 [facility] BUN/Creat SerPl 36.7 Above high normal 11/14/2024 12 - 20 [facility] Magnesium SerPl-mCnc 2.0 mg/dL 11/14/2024 1.7 - 2.8 [facility] Phosphate SerPl-mCnc 3.7 mg/dL 11/14/2024 2.5 - 4.5 [facility] Platelet # Bld Auto 773.0 K/mcL Above high normal 11/14/2024 150 - 450 [facility] Hct VFr Bld Auto 30.7 % Below low normal 11/14/2024 37 - 47 [facility] MCH RBC Qn Auto 29.2 pcg 11/14/2024 25 - 33 [facility] RBC Auto 86.8 FL 11/14/2024 78 - 100 [facility] WBC # Bld Auto 9.4 K/mcL 11/14/2024 4 - 10.5 [facility] PMV Bld Auto 8.4 FL 11/14/2024 7.4 - 11.4 [facility] RBC # Bld Auto 3.54 M/mcL Below low normal 11/14/2024 4.2 - 5.4 [facility] RDW RBC Auto 14.2 % 11/14/2024 12.1 - 16.2 [facility] Hgb Bld-mCnc 10.3 g/dL Below low normal 11/14/2024 12.5 - 16 [facility] MCHC RBC Auto-EntMCnc 33.7 g/dL 11/14/2024 32 - 36 [facility] Ca-I Bld-mCnc 1.27 mg/dL 11/14/2024 1.19 - 1.35 CT [facility] Glucose Bld-mCnc 117.0 mg/dL 11/14/2024 70 - 199 [facility] Glucose Bld-mCnc 121.0 mg/dL 11/14/2024 70 - 199 [facility] Glucose Bld-mCnc 147.0 mg/dL 11/14/2024 70 - 199 [facility] Sodium SerPl-sCnc 132.0 mmol/L Below low normal 11/13/2024 1 35 - 145 [facility] Creat SerPl-mCnc 0.9 mg/dL 11/13/2024 0.5 - 1 CT [facility] eGFRcr SerPlBld CKD-EPI 2020 73.0 mL/min/1.73m2 11/13/2024 - [facility] CO2 SerPl-sCnc 26.0 mmol/L 11/13/2024 24 - 32 [facility] Glucose SerPl-mCnc 174.0 mg/dL 11/13/2024 70 - 199 [facility] BUN/Creat SerPl 28.9 Above high normal 11/13/2024 12 - 20 [facility] Calcium SerPl-mCnc 9.8 mg/dL 11/13/2024 8.4 - 10.2 [facility] Anion Gap SerPl Calc-sCnc 11.0 11/13/2024 5 - 14 [facility] BUN SerPl-mCnc 26.0 mg/dL Above high normal 11/13/2024 7 - 1 7 [facility] Potassium SerPl-sCnc 3.7 mmol/L 11/13/2024 3.5 - 5.1 [facility] Chloride SerPl-sCnc 95.0 mmol/L Below low normal 11/13/2024 98 - 107 [facility] Magnesium SerPl-mCnc 1.8 mg/dL 11/13/2024 1.7 - 2.8 [facility] Glucose Bld-mCnc 182.0 mg/dL 11/13/2024 70 - 199 [facility] Phosphate SerPl-mCnc 3.9 mg/dL 11/13/2024 2.5 - 4.5 [facility] Magnesium SerPl-mCnc 2.1 mg/dL 11/13/2024 1.7 - 2.8 [facility] Calcium SerPl-mCnc 9.6 mg/dL 11/13/2024 8.4 - 10.2 [facility] BUN/Creat SerPl 30.9 Above high normal 11/13/2024 12 - 20 [facility] eGFRcr SerPlBld CKD-EPI 2020 58.0 mL/min/1.73m2 Below low normal 11/13/2024 - [facility] Glucose SerPl-mCnc 167.0 mg/dL 11/13/2024 70 - 199 [facility] Anion Gap SerPl Calc-sCnc 11.0 11/13/2024 5 - 14 [facility] Potassium SerPl-sCnc 3.6 mmol/L 11/13/2024 3.5 - 5.1 [facility] Chloride SerPl-sCnc 95.0 mmol/L Below low normal 11/13/2024 98 - 107 [facility] BUN SerPl-mCnc 34.0 mg/dL Above high normal 11/13/2024 7 - 1 7 [facility] CO2 SerPl-sCnc 26.0 mmol/L 11/13/2024 24 - 32 [facility] Sodium SerPl-sCnc 132.0 mmol/L Below low normal 11/13/2024 1 35 - 145 [facility] Creat SerPl-mCnc 1.1 mg/dL Above high normal 11/13/2024 0.5 - 1 [facility] MCHC RBC Auto-EntMCnc 34.1 g/dL 11/13/2024 32 - 36 [facility] Hct VFr Bld Auto 32.0 % Below low normal 11/13/2024 37 - 47 [facility] RDW RBC Auto 14.5 % 11/13/2024 12.1 - 16.2 [facility] RBC Auto 88.1 FL 11/13/2024 78 - 100 [facility] MCH RBC Qn Auto 30.1 pcg 11/13/2024 25 - 33 [facility] Platelet # Bld Auto 889.0 K/mcL Above high normal 11/13/2024 150 - 450 [facility] PMV Bld Auto 8.3 FL 11/13/2024 7.4 - 11.4 [facility] WBC # Bld Auto 8.9 K/mcL 11/13/2024 4 - 10.5 [facility] RBC # Bld Auto 3.63 M/mcL Below low normal 11/13/2024 4.2 - 5.4 [facility] Hgb Bld-mCnc 10.9 g/dL Below low normal 11/13/2024 12.5 - 16 [facility] Ca-I Bld-mCnc 1.26 mg/dL 11/13/2024 1.19 - 1.35 CT [facility] Glucose Bld-mCnc 176.0 mg/dL 11/13/2024 70 - 199 [facility] Chloride SerPl-sCnc 95.0 mmol/L Below low normal 11/12/2024 98 - 107 [facility] CO2 SerPl-sCnc 25.0 mmol/L 11/12/2024 24 - 32 [facility] eGFRcr SerPlBld CKD-EPI 2020 84.0 mL/min/1.73m2 11/12/2024 - [facility] Anion Gap SerPl Calc-sCnc 12.0 11/12/2024 5 - 14 [facility] BUN SerPl-mCnc 31.0 mg/dL Above high normal 11/12/2024 7 - 1 7 [facility] Creat SerPl-mCnc 0.8 mg/dL 11/12/2024 0.5 - 1 CT [facility] BUN/Creat SerPl 38.8 Above high normal 11/12/2024 12 - 20 [facility] Potassium SerPl-sCnc 3.9 mmol/L 11/12/2024 3.5 - 5.1 [facility] Calcium SerPl-mCnc 10.0 mg/dL 11/12/2024 8.4 - 10. 2 [facility] Glucose SerPl-mCnc 124.0 mg/dL 11/12/2024 70 - 199 [facility] Sodium SerPl-sCnc 132.0 mmol/L Below low normal 11/12/2024 1 35 - 145 [facility] Magnesium SerPl-mCnc 2.1 mg/dL 11/12/2024 1.7 - 2.8 [facility] Glucose Bld-mCnc 114.0 mg/dL 11/12/2024 70 - 199 [facility] Phosphate SerPl-mCnc 3.1 mg/dL 11/12/2024 2.5 - 4.5 [facility] Magnesium SerPl-mCnc 2.2 mg/dL 11/12/2024 1.7 - 2.8 [facility] Chloride SerPl-sCnc 97.0 mmol/L Below low normal 11/12/2024 98 - 107 [facility] Anion Gap SerPl Calc-sCnc 10.0 11/12/2024 5 - 14 [facility] BUN/Creat SerPl 47.1 Above high normal 11/12/2024 12 - 20 [facility] BUN SerPl-mCnc 33.0 mg/dL Above high normal 11/12/2024 7 - 1 7 [facility] eGFRcr SerPlBld CKD-EPI 2020 99.0 mL/min/1.73m2 11/12/2024 - [facility] Sodium SerPl-sCnc 133.0 mmol/L Below low normal 11/12/2024 1 35 - 145 [facility] Glucose SerPl-mCnc 111.0 mg/dL 11/12/2024 70 - 199 [facility] Potassium SerPl-sCnc 3.6 mmol/L 11/12/2024 3.5 - 5.1 [facility] CO2 SerPl-sCnc 26.0 mmol/L 11/12/2024 24 - 32 [facility] Creat SerPl-mCnc 0.7 mg/dL 11/12/2024 0.5 - 1 CT [facility] Calcium SerPl-mCnc 9.6 mg/dL 11/12/2024 8.4 - 10.2 [facility] Ca-I Bld-mCnc 1.24 mg/dL 11/12/2024 1.19 - 1.35 CT [facility] Platelet # Bld Auto 847.0 K/mcL Above high normal 11/12/2024 150 - 450 [facility] Hct VFr Bld Auto 31.2 % Below low normal 11/12/2024 37 - 47 [facility] MCHC RBC Auto-EntMCnc 32.8 g/dL 11/12/2024 32 - 36 [facility] WBC # Bld Auto 10.3 K/mcL 11/12/2024 4 - 10.5 [facility] RBC # Bld Auto 3.54 M/mcL Below low normal 11/12/2024 4.2 - 5.4 [facility] RBC Auto 88.1 FL 11/12/2024 78 - 100 [facility] MCH RBC Qn Auto 28.8 pcg 11/12/2024 25 - 33 [facility] PMV Bld Auto 8.2 FL 11/12/2024 7.4 - 11.4 [facility] Hgb Bld-mCnc 10.2 g/dL Below low normal 11/12/2024 12.5 - 16 [facility] RDW RBC Auto 14.4 % 11/12/2024 12.1 - 16.2 [facility] Glucose Bld-mCnc 203.0 mg/dL Above high normal 11/11/2024 70 - 199 [facility] Magnesium SerPl-mCnc 2.5 mg/dL 11/11/2024 1.7 - 2.8 [facility] BUN/Creat SerPl 47.8 Above high normal 11/11/2024 12 - 20 [facility] Creat SerPl-mCnc 0.9 mg/dL 11/11/2024 0.5 - 1 CT [facility] eGFRcr SerPlBld CKD-EPI 2020 73.0 mL/min/1.73m2 11/11/2024 - [facility] Anion Gap SerPl Calc-sCnc 13.0 11/11/2024 5 - 14 [facility] Calcium SerPl-mCnc 9.5 mg/dL 11/11/2024 8.4 - 10.2 [facility] Glucose SerPl-mCnc 157.0 mg/dL 11/11/2024 70 - 199 [facility] Chloride SerPl-sCnc 96.0 mmol/L Below low normal 11/11/2024 98 - 107 [facility] CO2 SerPl-sCnc 22.0 mmol/L Below low normal 11/11/2024 24 - 32 [facility] BUN SerPl-mCnc 43.0 mg/dL Above high normal 11/11/2024 7 - 1 7 [facility] Sodium SerPl-sCnc 131.0 mmol/L Below low normal 11/11/2024 1 35 - 145 [facility] Potassium SerPl-sCnc 5.0 mmol/L 11/11/2024 3.5 - 5.1 [facility] Glucose Bld-mCnc 110.0 mg/dL 11/11/2024 70 - 199 [facility] Glucose Bld-mCnc 111.0 mg/dL 11/11/2024 70 - 199 [facility] Ca-I Bld-mCnc 1.22 mg/dL 11/11/2024 1.19 - 1.35 CT [facility] Magnesium SerPl-mCnc 2.5 mg/dL 11/11/2024 1.7 - 2.8 [facility] Glucose SerPl-mCnc 109.0 mg/dL 11/11/2024 70 - 199 [facility] eGFRcr SerPlBld CKD-EPI 2020 65.0 mL/min/1.73m2 11/11/2024 - [facility] Sodium SerPl-sCnc 133.0 mmol/L Below low normal 11/11/2024 1 35 - 145 [facility] CO2 SerPl-sCnc 24.0 mmol/L 11/11/2024 24 - 32 [facility] Chloride SerPl-sCnc 96.0 mmol/L Below low normal 11/11/2024 98 - 107 [facility] Anion Gap SerPl Calc-sCnc 13.0 11/11/2024 5 - 14 [facility] BUN/Creat SerPl 46.0 Above high normal 11/11/2024 12 - 20 [facility] Potassium SerPl-sCnc 3.4 mmol/L Below low normal 11/11/2024 3.5 - 5.1 [facility] Calcium SerPl-mCnc 9.4 mg/dL 11/11/2024 8.4 - 10.2 [facility] BUN SerPl-mCnc 46.0 mg/dL Above high normal 11/11/2024 7 - 1 7 [facility] Creat SerPl-mCnc 1.0 mg/dL 11/11/2024 0.5 - 1 CT [facility] Phosphate SerPl-mCnc 4.5 mg/dL 11/11/2024 2.5 - 4.5 [facility] Hgb Bld-mCnc 9.9 g/dL Below low normal 11/11/2024 12.5 - 16 [facility] RBC Auto 87.5 FL 11/11/2024 78 - 100 [facility] MCH RBC Qn Auto 28.7 pcg 11/11/2024 25 - 33 [facility] MCHC RBC Auto-EntMCnc 32.8 g/dL 11/11/2024 32 - 36 [facility] RBC # Bld Auto 3.46 M/mcL Below low normal 11/11/2024 4.2 - 5.4 [facility] WBC # Bld Auto 11.2 K/mcL Above high normal 11/11/2024 4 - 1 0.5 [facility] RDW RBC Auto 14.2 % 11/11/2024 12.1 - 16.2 [facility] Platelet # Bld Auto 883.0 K/mcL Above high normal 11/11/2024 150 - 450 [facility] PMV Bld Auto 8.1 FL 11/11/2024 7.4 - 11.4 [facility] Hct VFr Bld Auto 30.3 % Below low normal 11/11/2024 37 - 47 [facility] Glucose Bld-mCnc 137.0 mg/dL 11/11/2024 70 - 199 [facility] Glucose Bld-mCnc 109.0 mg/dL 11/10/2024 70 - 199 [facility] Calcium SerPl-mCnc 9.3 mg/dL 11/10/2024 8.4 - 10.2 [facility] eGFRcr SerPlBld CKD-EPI 2020 58.0 mL/min/1.73m2 Below low normal 11/10/2024 - [facility] Potassium SerPl-sCnc 3.5 mmol/L 11/10/2024 3.5 - 5.1 [facility] CO2 SerPl-sCnc 24.0 mmol/L 11/10/2024 24 - 32 [facility] Anion Gap SerPl Calc-sCnc 16.0 Above high normal 11/10/2024 5 - 14 [facility] Creat SerPl-mCnc 1.1 mg/dL Above high normal 11/10/2024 0.5 - 1 [facility] Sodium SerPl-sCnc 135.0 mmol/L 11/10/2024 135 - 14 5 [facility] Chloride SerPl-sCnc 95.0 mmol/L Below low normal 11/10/2024 98 - 107 [facility] BUN SerPl-mCnc 50.0 mg/dL Above high normal 11/10/2024 7 - 1 7 [facility] BUN/Creat SerPl 45.5 Above high normal 11/10/2024 12 - 20 [facility] Glucose SerPl-mCnc 97.0 mg/dL 11/10/2024 70 - 99 [facility] Magnesium SerPl-mCnc 2.4 mg/dL 11/10/2024 1.7 - 2.8 [facility] Glucose Bld-mCnc 112.0 mg/dL 11/10/2024 70 - 199 [facility] Glucose Bld-mCnc 116.0 mg/dL 11/10/2024 70 - 199 [facility] Phosphate SerPl-mCnc 4.2 mg/dL 11/10/2024 2.5 - 4.5 [facility] Sodium SerPl-sCnc 133.0 mmol/L Below low normal 11/10/2024 1 35 - 145 [facility] Creat SerPl-mCnc 0.9 mg/dL 11/10/2024 0.5 - 1 CT [facility] Chloride SerPl-sCnc 94.0 mmol/L Below low normal 11/10/2024 98 - 107 [facility] Calcium SerPl-mCnc 9.6 mg/dL 11/10/2024 8.4 - 10.2 [facility] CO2 SerPl-sCnc 25.0 mmol/L 11/10/2024 24 - 32 [facility] BUN SerPl-mCnc 47.0 mg/dL Above high normal 11/10/2024 7 - 1 7 [facility] BUN/Creat SerPl 52.2 Above high normal 11/10/2024 12 - 20 [facility] Potassium SerPl-sCnc 3.7 mmol/L 11/10/2024 3.5 - 5.1 [facility] eGFRcr SerPlBld CKD-EPI 2020 73.0 mL/min/1.73m2 11/10/2024 - [facility] Anion Gap SerPl Calc-sCnc 14.0 11/10/2024 5 - 14 [facility] Glucose SerPl-mCnc 100.0 mg/dL 11/10/2024 70 - 199 [facility] Magnesium SerPl-mCnc 2.5 mg/dL 11/10/2024 1.7 - 2.8 [facility] Platelet # Bld Auto 884.0 K/mcL Above high normal 11/10/2024 150 - 450 [facility] PMV Bld Auto 8.8 FL 11/10/2024 7.4 - 11.4 [facility] RBC # Bld Auto 3.76 M/mcL Below low normal 11/10/2024 4.2 - 5.4 [facility] RBC Auto 88.7 FL 11/10/2024 78 - 100 [facility] Hgb Bld-mCnc 10.6 g/dL Below low normal 11/10/2024 12.5 - 16 [facility] WBC # Bld Auto 13.9 K/mcL Above high normal 11/10/2024 4 - 1 0.5 [facility] RDW RBC Auto 14.3 % 11/10/2024 12.1 - 16.2 [facility] Hct VFr Bld Auto 33.3 % Below low normal 11/10/2024 37 - 47 [facility] MCHC RBC Auto-EntMCnc 31.9 g/dL Below low normal 11/10/2024 32 - 36 [facility] MCH RBC Qn Auto 28.3 pcg 11/10/2024 25 - 33 [facility] Ca-I Bld-mCnc 1.14 mg/dL Below low normal 11/10/2024 1.19 - 1.35 [facility] Glucose Bld-mCnc 76.0 mg/dL 11/10/2024 70 - 199 C [facility] Creat SerPl-mCnc 1.0 mg/dL 11/09/2024 0.5 - 1 CT [facility] Chloride SerPl-sCnc 93.0 mmol/L Below low normal 11/09/2024 98 - 107 [facility] Glucose SerPl-mCnc 118.0 mg/dL 11/09/2024 70 - 199 [facility] Potassium SerPl-sCnc 3.9 mmol/L 11/09/2024 3.5 - 5.1 [facility] Sodium SerPl-sCnc 132.0 mmol/L Below low normal 11/09/2024 1 35 - 145 [facility] Calcium SerPl-mCnc 9.2 mg/dL 11/09/2024 8.4 - 10.2 [facility] BUN SerPl-mCnc 49.0 mg/dL Above high normal 11/09/2024 7 - 1 7 [facility] BUN/Creat SerPl 49.0 Above high normal 11/09/2024 12 - 20 [facility] eGFRcr SerPlBld CKD-EPI 2020 65.0 mL/min/1.73m2 11/09/2024 - [facility] Anion Gap SerPl Calc-sCnc 15.0 Above high normal 11/09/2024 5 - 14 [facility] CO2 SerPl-sCnc 24.0 mmol/L 11/09/2024 24 - 32 CT [facility] Magnesium SerPl-mCnc 2.5 mg/dL 11/09/2024 1.7 - 2.8 [facility] Glucose Bld-mCnc 131.0 mg/dL 11/09/2024 70 - 199 [facility] Glucose Bld-mCnc 177.0 mg/dL 11/09/2024 70 - 199 [facility] HBV surface Ag SerPl Ql IA Negative 11/09/2024 - [facility] HCV Ab SerPl Ql IA Negative 11/09/2024 - [facility] HBV core IgM SerPl Ql IA Negative 11/09/2024 - [facility] HAV IgM SerPl Ql IA Negative 11/09/2024 - [facility] HIV 1+2 Ab+HIV1 p24 Ag SerPl Ql IA Negative 11/09/2024 - [facility] WBC #/area UrnS HPF 1.0 /HPF 11/09/2024 0 - 5 [facility] RBC #/area UrnS HPF 4.0 /HPF Above high normal 11/09/2024 0 - 3 [facility] Nitrite Ur Ql Negative 11/09/2024 - [facility] pH Ur 7.0 pH 11/09/2024 5 - 8 [facility] Glucose Ur Ql Negative 11/09/2024 - [facility] Bacteria #/area UrnS HPF Present Abnormal 11/09/2024 - [facility] Color Ur Yellow 11/09/2024 - [facility] Squamous #/area UrnS HPF 2.0 /HPF 11/09/2024 0 - 5 [facility] Prot Ur Strip-mCnc Negative 11/09/2024 - [facility] Hgb Ur Ql Small Abnormal 11/09/2024 - [facility] Ketones Ur-mCnc Negative 11/09/2024 - [facility]_ [facility] Hyaline Casts #/area UrnS LPF 2.0 /LPF Above high normal 11/09/2024 - [facility] RAN Sp Gr Ur 1.009 11/09/2024 1.005 - 1.03 [facility] KAILEE Clarity Ur Clear 11/09/2024 - [facility] AN Leukocyte esterase Ur Ql Strip Trace Abnormal 11/09/2024 - [facility] Phosphate SerPl-mCnc 5.5 mg/dL Above high normal 11/09/2024 2.5 - 4.5 [facility] CO2 SerPl-sCnc 27.0 mmol/L 11/09/2024 24 - 32 [facility] Creat SerPl-mCnc 1.1 mg/dL Above high normal 11/09/2024 0.5 - 1 [facility] BUN SerPl-mCnc 54.0 mg/dL Above high normal 11/09/2024 7 - 1 7 [facility] BUN/Creat SerPl 49.1 Above high normal 11/09/2024 12 - 20 [facility] Glucose SerPl-mCnc 104.0 mg/dL 11/09/2024 70 - 199 [facility] Sodium SerPl-sCnc 133.0 mmol/L Below low normal 11/09/2024 1 35 - 145 [facility] eGFRcr SerPlBld CKD-EPI 2020 58.0 mL/min/1.73m2 Below low normal 11/09/2024 - [facility] Potassium SerPl-sCnc 3.6 mmol/L 11/09/2024 3.5 - 5.1 [facility] Calcium SerPl-mCnc 10.1 mg/dL 11/09/2024 8.4 - 10. 2 [facility] Anion Gap SerPl Calc-sCnc 14.0 11/09/2024 5 - 14 [facility] Chloride SerPl-sCnc 92.0 mmol/L Below low normal 11/09/2024 98 - 107 [facility] Bilirub Direct SerPl-mCnc 0.0 mg/dL 11/09/2024 0 - 0.2 [facility] AST SerPl-cCnc 43.0 unit/L Above high normal 11/09/2024 5 - 40 [facility] Bilirub SerPl-mCnc 0.6 mg/dL 11/09/2024 0.3 - 1 [facility] Albumin/Glob SerPl 0.8 11/09/2024 [facility] ALP SerPl-cCnc 112.0 unit/L Above high normal 11/09/2024 34 - 104 [facility] ALT SerPl-cCnc 70.0 unit/L Above high normal 11/09/2024 7 - 52 [facility] Albumin SerPl-mCnc 4.1 g/dL 11/09/2024 3.5 - 5 [facility] Prot SerPl-mCnc 9.3 g/dL Above high normal 11/09/2024 6.4 - 8.5 [facility] Globulin Ser Calc-mCnc 5.2 g/dL Above high normal 11/09/2024 2.3 - 3.5 [facility] Magnesium SerPl-mCnc 2.8 mg/dL 11/09/2024 1.7 - 2.8 [facility] WBC # Bld Auto 17.4 K/mcL Above high normal 11/09/2024 4 - 1 0.5 [facility] PMV Bld Auto 8.6 FL 11/09/2024 7.4 - 11.4 [facility] MCH RBC Qn Auto 27.9 pcg 11/09/2024 25 - 33 [facility] Platelet # Bld Auto 853.0 K/mcL Above high normal 11/09/2024 150 - 450 [facility] RBC Auto 88.2 FL 11/09/2024 78 - 100 [facility] MCHC RBC Auto-EntMCnc 31.6 g/dL Below low normal 11/09/2024 32 - 36 [facility] RBC # Bld Auto 3.72 M/mcL Below low normal 11/09/2024 4.2 - 5.4 [facility] Hgb Bld-mCnc 10.4 g/dL Below low normal 11/09/2024 12.5 - 16 [facility] RDW RBC Auto 14.1 % 11/09/2024 12.1 - 16.2 [facility] Hct VFr Bld Auto 32.8 % Below low normal 11/09/2024 37 - 47 [facility] Ca-I Bld-mCnc 1.18 mg/dL Below low normal 11/09/2024 1.19 - 1.35 [facility] Glucose Bld-mCnc 137.0 mg/dL 11/08/2024 70 - 199 [facility] Anion Gap SerPl Calc-sCnc 14.0 11/08/2024 5 - 14 [facility] Potassium SerPl-sCnc 4.8 mmol/L 11/08/2024 3.5 - 5.1 [facility] CO2 SerPl-sCnc 26.0 mmol/L 11/08/2024 24 - 32 [facility] Creat SerPl-mCnc 1.1 mg/dL Above high normal 11/08/2024 0.5 - 1 [facility] BUN SerPl-mCnc 50.0 mg/dL Above high normal 11/08/2024 7 - 1 7 [facility] Sodium SerPl-sCnc 134.0 mmol/L Below low normal 11/08/2024 1 35 - 145 [facility] BUN/Creat SerPl 45.5 Above high normal 11/08/2024 12 - 20 [facility] Glucose SerPl-mCnc 138.0 mg/dL 11/08/2024 70 - 199 [facility] Calcium SerPl-mCnc 10.0 mg/dL 11/08/2024 8.4 - 10. 2 [facility] eGFRcr SerPlBld CKD-EPI 2020 58.0 mL/min/1.73m2 Below low normal 11/08/2024 - [facility] Chloride SerPl-sCnc 94.0 mmol/L Below low normal 11/08/2024 98 - 107 [facility] Magnesium SerPl-mCnc 2.7 mg/dL 11/08/2024 1.7 - 2.8 [facility] Prealb SerPl-mCnc 17.0 mg/dL 11/08/2024 17 - 34 [facility] Glucose Bld-mCnc 114.0 mg/dL 11/08/2024 70 - 199 [facility] HCO3 BldA-sCnc 27.2 mmol/L Above high normal 11/08/2024 22 - 26 [facility] SaO2 % BldA 100.0 % Above high normal 11/08/2024 95 - 98 [facility] pCO2 BldA 43.0 mmHg 11/08/2024 35 - 45 [facility] pO2 BldA 143.0 mmHg Above high normal 11/08/2024 80 - 105 [facility] Base excess BldA Calc-sCnc 2.9 mmol/L Above high normal 11/08/2024 0 - 2 [facility] pH BldA 7.42 pH 11/08/2024 7.35 - 7.45 [facility] Ca-I Bld-mCnc 1.18 mg/dL Below low normal 11/08/2024 1.19 - 1.35 [facility] Phosphate SerPl-mCnc 4.4 mg/dL 11/08/2024 2.5 - 4.5 [facility] CO2 SerPl-sCnc 27.0 mmol/L 11/08/2024 24 - 32 [facility] BUN/Creat SerPl 51.1 Above high normal 11/08/2024 12 - 20 [facility] Anion Gap SerPl Calc-sCnc 15.0 Above high normal 11/08/2024 5 - 14 [facility] Sodium SerPl-sCnc 136.0 mmol/L 11/08/2024 135 - 14 5 [facility] Calcium SerPl-mCnc 9.9 mg/dL 11/08/2024 8.4 - 10.2 [facility] BUN SerPl-mCnc 46.0 mg/dL Above high normal 11/08/2024 7 - 1 7 [facility] Glucose SerPl-mCnc 105.0 mg/dL 11/08/2024 70 - 199 [facility] Creat SerPl-mCnc 0.9 mg/dL 11/08/2024 0.5 - 1 CT [facility] Potassium SerPl-sCnc 3.2 mmol/L Below low normal 11/08/2024 3.5 - 5.1 [facility] Chloride SerPl-sCnc 94.0 mmol/L Below low normal 11/08/2024 98 - 107 [facility] eGFRcr SerPlBld CKD-EPI 2020 73.0 mL/min/1.73m2 11/08/2024 - [facility] Magnesium SerPl-mCnc 2.6 mg/dL 11/08/2024 1.7 - 2.8 [facility] RBC Auto 88.1 FL 11/08/2024 78 - 100 [facility] Platelet # Bld Auto 707.0 K/mcL Above high normal 11/08/2024 150 - 450 [facility] WBC # Bld Auto 15.9 K/mcL Above high normal 11/08/2024 4 - 1 0.5 [facility] Hgb Bld-mCnc 9.9 g/dL Below low normal 11/08/2024 12.5 - 16 [facility] Hct VFr Bld Auto 30.2 % Below low normal 11/08/2024 37 - 47 [facility] RDW RBC Auto 14.1 % 11/08/2024 12.1 - 16.2 [facility] PMV Bld Auto 9.0 FL 11/08/2024 7.4 - 11.4 [facility] MCH RBC Qn Auto 28.8 pcg 11/08/2024 25 - 33 [facility] RBC # Bld Auto 3.42 M/mcL Below low normal 11/08/2024 4.2 - 5.4 [facility] MCHC RBC Auto-EntMCnc 32.7 g/dL 11/08/2024 32 - 36 [facility] Creat SerPl-mCnc 1.0 mg/dL 11/07/2024 0.5 - 1 CT [facility] Calcium SerPl-mCnc 9.5 mg/dL 11/07/2024 8.4 - 10.2 [facility] BUN SerPl-mCnc 44.0 mg/dL Above high normal 11/07/2024 7 - 1 7 [facility] Glucose SerPl-mCnc 121.0 mg/dL 11/07/2024 70 - 199 [facility] Potassium SerPl-sCnc 3.6 mmol/L 11/07/2024 3.5 - 5.1 [facility] Sodium SerPl-sCnc 137.0 mmol/L 11/07/2024 135 - 14 5 [facility] eGFRcr SerPlBld CKD-EPI 2020 65.0 mL/min/1.73m2 11/07/2024 - [facility] Anion Gap SerPl Calc-sCnc 13.0 11/07/2024 5 - 14 [facility] CO2 SerPl-sCnc 28.0 mmol/L 11/07/2024 24 - 32 CT [facility] BUN/Creat SerPl 44.0 Above high normal 11/07/2024 12 - 20 [facility] Chloride SerPl-sCnc 96.0 mmol/L Below low normal 11/07/2024 98 - 107 [facility] Magnesium SerPl-mCnc 2.5 mg/dL 11/07/2024 1.7 - 2.8 [facility] SaO2 % BldA 98.2 % Above high normal 11/07/2024 95 - 98 [facility] pH BldA 7.44 pH 11/07/2024 7.35 - 7.45 [facility] HCO3 BldA-sCnc 27.1 mmol/L Above high normal 11/07/2024 22 - 26 [facility] pCO2 BldA 40.0 mmHg 11/07/2024 35 - 45 [facility] Base excess BldA Calc-sCnc 2.8 mmol/L Above high normal 11/07/2024 0 - 2 [facility] pO2 BldA 85.0 mmHg 11/07/2024 80 - 105 [facility] Jt index Bld+IhG-Rto 30.0 % 11/08/2024 - [facility] HCO3 BldA-sCnc 27.0 mmol/L Above high normal 11/08/2024 22 - 26 [facility] SaO2 % BldA 97.0 % 11/08/2024 95 - 98 [facility] pCO2 BldA 39.1 mmHg 11/08/2024 35 - 45 [facility] Body temperature 99.1 C 11/08/2024 CT [facility] pH BldA 7.45 11/08/2024 7.35 - 7.45 [facility] pO2 BldA 83.0 mmHg 11/08/2024 80 - 105 [facility] Base excess BldA Calc-sCnc 3.0 mmol/L Above high normal 11/08/2024 0 - 2 [facility] pO2 temp adj BldA 85.0 mmHg Critically high 11/08/2024 35 - 45 [facility] pCO2 temp adj BldA 39.6 mmHg 11/08/2024 35 - 45 [facility] Specimen drawn from Patient ART 11/08/2024 [facility] pH temp adj BldA 7.44 11/08/2024 7.35 - 7.45 [facility] Glucose Bld-mCnc 128.0 mg/dL 11/07/2024 70 - 199 [facility] pO2 temp adj BldA 85.0 mmHg Critically high 11/07/2024 35 - 45 [facility] Base excess BldA Calc-sCnc 2.0 mmol/L 11/07/2024 0 - 2 [facility] pH temp adj BldA 7.42 11/07/2024 7.35 - 7.45 [facility] HCO3 BldA-sCnc 26.0 mmol/L 11/07/2024 22 - 26 CT [facility] pH BldA 7.42 11/07/2024 7.35 - 7.45 [facility] Jt index Bld+IhG-Rto 30.0 % 11/07/2024 - [facility] pO2 BldA 83.0 mmHg 11/07/2024 80 - 105 [facility] SaO2 % BldA 96.0 % 11/07/2024 95 - 98 [facility] pCO2 temp adj BldA 40.1 mmHg 11/07/2024 35 - 45 [facility] Body temperature 99.0 C 11/07/2024 CT [facility] Specimen drawn from Patient ART 11/07/2024 [facility] pCO2 BldA 39.7 mmHg 11/07/2024 35 - 45 [facility] Glucose Bld-mCnc 138.0 mg/dL 11/07/2024 70 - 199 [facility] pCO2 BldA 36.0 mmHg 11/07/2024 35 - 45 [facility] HCO3 BldA-sCnc 29.2 mmol/L Above high normal 11/07/2024 22 - 26 [facility] SaO2 % BldA 95.0 % 11/07/2024 95 - 98 [facility] Base excess BldA Calc-sCnc 5.6 mmol/L Above high normal 11/07/2024 0 - 2 [facility] Jt index Bld+IhG-Rto 30.0 11/07/2024 [facility] pO2 BldA 70.0 mmHg Below low normal 11/07/2024 80 - 105 CT [facility] pH BldA 7.51 pH Critically high 11/07/2024 7.35 - 7.45 C [facility] Phosphate SerPl-mCnc 5.4 mg/dL Above high normal 11/07/2024 2.5 - 4.5 [facility] Chloride SerPl-sCnc 96.0 mmol/L Below low normal 11/07/2024 98 - 107 [facility] Anion Gap SerPl Calc-sCnc 12.0 11/07/2024 5 - 14 [facility] Glucose SerPl-mCnc 155.0 mg/dL 11/07/2024 70 - 199 [facility] Calcium SerPl-mCnc 9.6 mg/dL 11/07/2024 8.4 - 10.2 [facility] BUN/Creat SerPl 44.0 Above high normal 11/07/2024 12 - 20 [facility] Sodium SerPl-sCnc 136.0 mmol/L 11/07/2024 135 - 14 5 [facility] Potassium SerPl-sCnc 3.8 mmol/L 11/07/2024 3.5 - 5.1 [facility] Creat SerPl-mCnc 1.0 mg/dL 11/07/2024 0.5 - 1 CT [facility] BUN SerPl-mCnc 44.0 mg/dL Above high normal 11/07/2024 7 - 1 7 [facility] eGFRcr SerPlBld CKD-EPI 2020 65.0 mL/min/1.73m2 11/07/2024 - [facility] CO2 SerPl-sCnc 28.0 mmol/L 11/07/2024 24 - 32 CT [facility] Magnesium SerPl-mCnc 2.3 mg/dL 11/07/2024 1.7 - 2.8 [facility] Ca-I Bld-mCnc 1.15 mg/dL Below low normal 11/07/2024 1.19 - 1.35 [facility] PMV Bld Auto 8.7 FL 11/07/2024 7.4 - 11.4 [facility] RBC # Bld Auto 3.27 M/mcL Below low normal 11/07/2024 4.2 - 5.4 [facility] MCH RBC Qn Auto 28.5 pcg 11/07/2024 25 - 33 [facility]_ [facility] Hgb Bld-mCnc 9.3 g/dL Below low normal 11/07/2024 12.5 - 16 [facility] Hct VFr Bld Auto 28.5 % Below low normal 11/07/2024 37 - 47 [facility] WBC # Bld Auto 14.5 K/mcL Above high normal 11/07/2024 4 - 1 0.5 [facility] RBC Auto 87.1 FL 11/07/2024 78 - 100 [facility] Platelet # Bld Auto 603.0 K/mcL Above high normal 11/07/2024 150 - 450 [facility] RDW RBC Auto 14.4 % 11/07/2024 12.1 - 16.2 [facility] MCHC RBC Auto-EntMCnc 32.7 g/dL 11/07/2024 32 - 36 [facility] Glucose Bld-mCnc 145.0 mg/dL 11/07/2024 70 - 199 [facility] Magnesium SerPl-mCnc 2.2 mg/dL 11/06/2024 1.7 - 2.8 [facility] BUN SerPl-mCnc 39.0 mg/dL Above high normal 11/06/2024 7 - 1 7 [facility] eGFRcr SerPlBld CKD-EPI 2020 65.0 mL/min/1.73m2 11/06/2024 - [facility] BUN/Creat SerPl 39.0 Above high normal 11/06/2024 12 - 20 [facility] CO2 SerPl-sCnc 29.0 mmol/L 11/06/2024 24 - 32 CT [facility] Glucose SerPl-mCnc 142.0 mg/dL 11/06/2024 70 - 199 [facility] Potassium SerPl-sCnc 4.0 mmol/L 11/06/2024 3.5 - 5.1 [facility] Chloride SerPl-sCnc 95.0 mmol/L Below low normal 11/06/2024 98 - 107 [facility] Calcium SerPl-mCnc 9.7 mg/dL 11/06/2024 8.4 - 10.2 [facility] Creat SerPl-mCnc 1.0 mg/dL 11/06/2024 0.5 - 1 CT [facility] Sodium SerPl-sCnc 137.0 mmol/L 11/06/2024 135 - 14 5 [facility] Anion Gap SerPl Calc-sCnc 13.0 11/06/2024 5 - 14 [facility] pH BldA 7.49 pH Above high normal 11/06/2024 7.35 - 7.45 [facility] Base excess BldA Calc-sCnc 5.4 mmol/L Above high normal 11/06/2024 0 - 2 [facility] HCO3 BldA-sCnc 29.1 mmol/L Above high normal 11/06/2024 22 - 26 [facility] SaO2 % BldA 98.9 % Above high normal 11/06/2024 95 - 98 [facility] pO2 BldA 80.0 mmHg 11/06/2024 80 - 105 [facility] pCO2 BldA 38.0 mmHg 11/06/2024 35 - 45 [facility] Glucose Bld-mCnc 141.0 mg/dL 11/06/2024 70 - 199 [facility] Trigl SerPl-mCnc 189.0 mg/dL Above high normal 11/06/2024 - 150 [facility] Potassium SerPl-sCnc 4.7 mmol/L 11/06/2024 3.5 - 5.1 [facility] Creat SerPl-mCnc 1.0 mg/dL 11/06/2024 0.5 - 1 CT [facility] Calcium SerPl-mCnc 9.4 mg/dL 11/06/2024 8.4 - 10.2 [facility] eGFRcr SerPlBld CKD-EPI 2020 65.0 mL/min/1.73m2 11/06/2024 - [facility] BUN SerPl-mCnc 39.0 mg/dL Above high normal 11/06/2024 7 - 1 7 [facility] Chloride SerPl-sCnc 97.0 mmol/L Below low normal 11/06/2024 98 - 107 [facility] Anion Gap SerPl Calc-sCnc 10.0 11/06/2024 5 - 14 [facility] Glucose SerPl-mCnc 188.0 mg/dL 11/06/2024 70 - 199 [facility] Sodium SerPl-sCnc 137.0 mmol/L 11/06/2024 135 - 14 5 [facility] CO2 SerPl-sCnc 30.0 mmol/L 11/06/2024 24 - 32 CT [facility] BUN/Creat SerPl 39.0 Above high normal 11/06/2024 12 - 20 [facility] Magnesium SerPl-mCnc 2.1 mg/dL 11/06/2024 1.7 - 2.8 [facility] Glucose Bld-mCnc 146.0 mg/dL 11/06/2024 70 - 199 [facility] Base excess BldA Calc-sCnc 7.7 mmol/L Above high normal 11/06/2024 0 - 2 [facility] Jt index Bld+IhG-Rto 30.0 11/06/2024 [facility] pO2 BldA 85.0 mmHg 11/06/2024 80 - 105 [facility] pCO2 BldA 38.0 mmHg 11/06/2024 35 - 45 [facility] pH BldA 7.52 pH Critically high 11/06/2024 7.35 - 7.45 C [facility] HCO3 BldA-sCnc 30.9 mmol/L Above high normal 11/06/2024 22 - 26 [facility] SaO2 % BldA 99.4 % Above high normal 11/06/2024 95 - 98 [facility] eGFRcr SerPlBld CKD-EPI 2020 73.0 mL/min/1.73m2 11/06/2024 - [facility] Potassium SerPl-sCnc 3.9 mmol/L 11/06/2024 3.5 - 5.1 [facility] CO2 SerPl-sCnc 30.0 mmol/L 11/06/2024 24 - 32 CT [facility] Glucose SerPl-mCnc 136.0 mg/dL 11/06/2024 70 - 199 [facility] Anion Gap SerPl Calc-sCnc 10.0 11/06/2024 5 - 14 [facility] Chloride SerPl-sCnc 96.0 mmol/L Below low normal 11/06/2024 98 - 107 [facility] Calcium SerPl-mCnc 9.1 mg/dL 11/06/2024 8.4 - 10.2 [facility] Sodium SerPl-sCnc 136.0 mmol/L 11/06/2024 135 - 14 5 [facility] BUN SerPl-mCnc 38.0 mg/dL Above high normal 11/06/2024 7 - 1 7 [facility] Creat SerPl-mCnc 0.9 mg/dL 11/06/2024 0.5 - 1 CT [facility] BUN/Creat SerPl 42.2 Above high normal 11/06/2024 12 - 20 [facility] Phosphate SerPl-mCnc 5.2 mg/dL Above high normal 11/06/2024 2.5 - 4.5 [facility] Magnesium SerPl-mCnc 2.0 mg/dL 11/06/2024 1.7 - 2.8 [facility] Ca-I Bld-mCnc 1.12 mg/dL Below low normal 11/06/2024 1.19 - 1.35 [facility] Platelet # Bld Auto 547.0 K/mcL Above high normal 11/06/2024 150 - 450 [facility] PMV Bld Auto 8.7 FL 11/06/2024 7.4 - 11.4 [facility] WBC # Bld Auto 13.7 K/mcL Above high normal 11/06/2024 4 - 1 0.5 [facility] Hgb Bld-mCnc 9.0 g/dL Below low normal 11/06/2024 12.5 - 16 [facility] RBC # Bld Auto 3.1 M/mcL Below low normal 11/06/2024 4.2 - 5 .4 [facility] MCH RBC Qn Auto 29.0 pcg 11/06/2024 25 - 33 [facility] Hct VFr Bld Auto 27.2 % Below low normal 11/06/2024 37 - 47 [facility] RBC Auto 87.5 FL 11/06/2024 78 - 100 [facility] MCHC RBC Auto-EntMCnc 33.2 g/dL 11/06/2024 32 - 36 [facility] RDW RBC Auto 14.2 % 11/06/2024 12.1 - 16.2 [facility] Glucose Bld-mCnc 139.0 mg/dL 11/06/2024 70 - 199 [facility] pH BldA 7.51 pH Critically high 11/05/2024 7.35 - 7.45 C [facility] pCO2 BldA 39.0 mmHg 11/05/2024 35 - 45 [facility] pO2 BldA 88.0 mmHg 11/05/2024 80 - 105 [facility] SaO2 % BldA 99.5 % Above high normal 11/05/2024 95 - 98 [facility] Base excess BldA Calc-sCnc 7.5 mmol/L Above high normal 11/05/2024 0 - 2 [facility] HCO3 BldA-sCnc 30.8 mmol/L Above high normal 11/05/2024 22 - 26 [facility] Base excess BldA Calc-sCnc 5.5 mmol/L Above high normal 11/05/2024 0 - 2 [facility] pO2 BldA 118.0 mmHg Above high normal 11/05/2024 80 - 105 [facility] SaO2 % BldA 100.0 % Above high normal 11/05/2024 95 - 98 [facility] HCO3 BldA-sCnc 29.3 mmol/L Above high normal 11/05/2024 22 - 26 [facility] pH BldA 7.5 pH Above high normal 11/05/2024 7.35 - 7.45 [facility] Jt index Bld+IhG-Rto 30.0 11/05/2024 [facility] pCO2 BldA 37.0 mmHg 11/05/2024 35 - 45 [facility] Glucose Bld-mCnc 134.0 mg/dL 11/05/2024 70 - 199 [facility] Magnesium SerPl-mCnc 2.5 mg/dL 11/05/2024 1.7 - 2.8 [facility] Phosphate SerPl-mCnc 5.3 mg/dL Above high normal 11/05/2024 2.5 - 4.5 [facility] Chloride SerPl-sCnc 98.0 mmol/L 11/05/2024 98 - 107 [facility] eGFRcr SerPlBld CKD-EPI 2020 84.0 mL/min/1.73m2 11/05/2024 - [facility] CO2 SerPl-sCnc 29.0 mmol/L 11/05/2024 24 - 32 [facility] Glucose SerPl-mCnc 165.0 mg/dL 11/05/2024 70 - 199 [facility] BUN SerPl-mCnc 31.0 mg/dL Above high normal 11/05/2024 7 - 1 7 [facility] Potassium SerPl-sCnc 3.5 mmol/L 11/05/2024 3.5 - 5.1 [facility] Anion Gap SerPl Calc-sCnc 12.0 11/05/2024 5 - 14 [facility] Sodium SerPl-sCnc 139.0 mmol/L 11/05/2024 135 - 14 5 [facility] Creat SerPl-mCnc 0.8 mg/dL 11/05/2024 0.5 - 1 CT [facility] Calcium SerPl-mCnc 9.0 mg/dL 11/05/2024 8.4 - 10.2 [facility] BUN/Creat SerPl 38.8 Above high normal 11/05/2024 12 - 20 [facility] WBC # Bld Auto 12.2 K/mcL Above high normal 11/05/2024 4 - 1 0.5 [facility] MCH RBC Qn Auto 28.7 pcg 11/05/2024 25 - 33 [facility] Hgb Bld-mCnc 8.9 g/dL Below low normal 11/05/2024 12.5 - 16 [facility] Platelet # Bld Auto 429.0 K/mcL 11/05/2024 150 - 450 [facility] RDW RBC Auto 14.2 % 11/05/2024 12.1 - 16.2 [facility] RBC # Bld Auto 3.1 M/mcL Below low normal 11/05/2024 4.2 - 5 .4 [facility] PMV Bld Auto 9.2 FL 11/05/2024 7.4 - 11.4 [facility] RBC Auto 87.9 FL 11/05/2024 78 - 100 [facility] Hct VFr Bld Auto 27.3 % Below low normal 11/05/2024 37 - 47 [facility] MCHC RBC Auto-EntMCnc 32.6 g/dL 11/05/2024 32 - 36 [facility] Ca-I Bld-mCnc 1.15 mg/dL Below low normal 11/05/2024 1.19 - 1.35 [facility] Glucose Bld-mCnc 155.0 mg/dL 11/05/2024 70 - 199 [facility] pH BldA 7.5 pH Above high normal 11/05/2024 7.35 - 7.45 [facility] pCO2 BldA 39.0 mmHg 11/05/2024 35 - 45 [facility] pO2 BldA 116.0 mmHg Above high normal 11/05/2024 80 - 105 [facility] SaO2 % BldA 100.0 % Above high normal 11/05/2024 95 - 98 [facility] Base excess BldA Calc-sCnc 6.7 mmol/L Above high normal 11/05/2024 0 - 2 [facility] HCO3 BldA-sCnc 30.2 mmol/L Above high normal 11/05/2024 22 - 26 [facility] Jt index Bld+IhG-Rto 30.0 11/05/2024 [facility] Glucose Bld-mCnc 158.0 mg/dL 11/05/2024 70 - 199 [facility] eGFRcr SerPlBld CKD-EPI 2020 84.0 mL/min/1.73m2 11/04/2024 - [facility] Glucose SerPl-mCnc 134.0 mg/dL 11/04/2024 70 - 199 [facility] Potassium SerPl-sCnc 4.1 mmol/L 11/04/2024 3.5 - 5.1 [facility] Chloride SerPl-sCnc 100.0 mmol/L 11/04/2024 98 - 107 [facility] Creat SerPl-mCnc 0.8 mg/dL 11/04/2024 0.5 - 1 CT [facility] Calcium SerPl-mCnc 9.0 mg/dL 11/04/2024 8.4 - 10.2 [facility] BUN SerPl-mCnc 27.0 mg/dL Above high normal 11/04/2024 7 - 1 7 [facility] CO2 SerPl-sCnc 28.0 mmol/L 11/04/2024 24 - 32 [facility] Anion Gap SerPl Calc-sCnc 12.0 11/04/2024 5 - 14 [facility] BUN/Creat SerPl 33.8 Above high normal 11/04/2024 12 - 20 [facility] Sodium SerPl-sCnc 140.0 mmol/L 11/04/2024 135 - 14 5 [facility] Magnesium SerPl-mCnc 1.9 mg/dL 11/04/2024 1.7 - 2.8 [facility] Glucose Bld-mCnc 135.0 mg/dL 11/04/2024 70 - 199 [facility] Glucose Bld-mCnc 136.0 mg/dL 11/04/2024 70 - 199 [facility] pH BldA 7.48 pH Above high normal 11/04/2024 7.35 - 7.45 [facility] HCO3 BldA-sCnc 27.6 mmol/L Above high normal 11/04/2024 22 - 26 [facility] Jt index Bld+IhG-Rto 30.0 11/04/2024 [facility] pCO2 BldA 36.0 mmHg 11/04/2024 35 - 45 [facility] SaO2 % BldA 98.8 % Above high normal 11/04/2024 95 - 98 [facility] Base excess BldA Calc-sCnc 3.4 mmol/L Above high normal 11/04/2024 0 - 2 [facility] pO2 BldA 94.0 mmHg 11/04/2024 80 - 105 [facility] Calcium SerPl-mCnc 9.0 mg/dL 11/04/2024 8.4 - 10.2 [facility] Anion Gap SerPl Calc-sCnc 9.0 11/04/2024 5 - 14 [facility] Chloride SerPl-sCnc 101.0 mmol/L 11/04/2024 98 - 107 [facility] Creat SerPl-mCnc 0.8 mg/dL 11/04/2024 0.5 - 1 CT [facility] eGFRcr SerPlBld CKD-EPI 2020 84.0 mL/min/1.73m2 11/04/2024 - [facility] Glucose SerPl-mCnc 160.0 mg/dL 11/04/2024 70 - 199 [facility] Sodium SerPl-sCnc 137.0 mmol/L 11/04/2024 135 - 14 5 [facility] Potassium SerPl-sCnc 3.8 mmol/L 11/04/2024 3.5 - 5.1 [facility] CO2 SerPl-sCnc 27.0 mmol/L 11/04/2024 24 - 32 [facility] BUN SerPl-mCnc 28.0 mg/dL Above high normal 11/04/2024 7 - 1 7 [facility] BUN/Creat SerPl 35.0 Above high normal 11/04/2024 12 - 20 [facility] Phosphate SerPl-mCnc 4.3 mg/dL 11/04/2024 2.5 - 4.5 [facility] Magnesium SerPl-mCnc 2.0 mg/dL 11/04/2024 1.7 - 2.8 [facility] RBC Auto 88.4 FL 11/04/2024 78 - 100 [facility] Hct VFr Bld Auto 27.0 % Below low normal 11/04/2024 37 - 47 [facility] MCH RBC Qn Auto 28.9 pcg 11/04/2024 25 - 33 [facility] RBC # Bld Auto 3.06 M/mcL Below low normal 11/04/2024 4.2 - 5.4 [facility] Platelet # Bld Auto 327.0 K/mcL 11/04/2024 150 - 450 [facility] PMV Bld Auto 9.3 FL 11/04/2024 7.4 - 11.4 [facility] RDW RBC Auto 14.3 % 11/04/2024 12.1 - 16.2 [facility] Hgb Bld-mCnc 8.8 g/dL Below low normal 11/04/2024 12.5 - 16 [facility] MCHC RBC Auto-EntMCnc 32.7 g/dL 11/04/2024 32 - 36 [facility] WBC # Bld Auto 11.8 K/mcL Above high normal 11/04/2024 4 - 1 0.5 [facility] Ca-I Bld-mCnc 1.18 mg/dL Below low normal 11/04/2024 1.19 - 1.35 [facility] Glucose Bld-mCnc 146.0 mg/dL 11/04/2024 70 - 199 [facility] Hct VFr Bld Auto 26.5 % Below low normal 11/03/2024 37 - 47 [facility] Hgb Bld-mCnc 8.9 g/dL Below low normal 11/03/2024 12.5 - 16 [facility] Glucose Bld-mCnc 158.0 mg/dL 11/03/2024 70 - 199 [facility] pCO2 BldA 36.0 mmHg 11/03/2024 35 - 45 [facility] pO2 BldA 92.0 mmHg 11/03/2024 80 - 105 [facility] pH BldA 7.48 pH Above high normal 11/03/2024 7.35 - 7.45 [facility] SaO2 % BldA 98.5 % Above high normal 11/03/2024 95 - 98 [facility] Base excess BldA Calc-sCnc 3.4 mmol/L Above high normal 11/03/2024 0 - 2 [facility] HCO3 BldA-sCnc 27.6 mmol/L Above high normal 11/03/2024 22 - 26 [facility] Bld gp Ab Scn SerPl Ql Negative 11/03/2024 [facility] Rh Bld Positive 11/03/2024 [facility] ABO Group Bld O 11/03/2024 [facility] Glucose Bld-mCnc 154.0 mg/dL 11/03/2024 70 - 199 [facility] aPTT PPP 27.4 sec 11/03/2024 25 - 37 [facility] INR PPP 1.0 11/03/2024 0.8 - 1.1 [facility] PT Bld 11.9 sec 11/03/2024 10.5 - 13.3 [facility] Magnesium SerPl-mCnc 1.8 mg/dL 11/03/2024 1.7 - 2.8 [facility] Calcium SerPl-mCnc 9.1 mg/dL 11/03/2024 8.4 - 10.2 [facility] Creat SerPl-mCnc 0.6 mg/dL 11/03/2024 0.5 - 1 CT [facility] Glucose SerPl-mCnc 126.0 mg/dL 11/03/2024 70 - 199 [facility] Sodium SerPl-sCnc 138.0 mmol/L 11/03/2024 135 - 14 5 [facility] BUN SerPl-mCnc 22.0 mg/dL Above high normal 11/03/2024 7 - 1 7 [facility] Chloride SerPl-sCnc 101.0 mmol/L 11/03/2024 98 - 107 [facility] Potassium SerPl-sCnc 4.0 mmol/L 11/03/2024 3.5 - 5.1 [facility] Anion Gap SerPl Calc-sCnc 10.0 11/03/2024 5 - 14 [facility] CO2 SerPl-sCnc 27.0 mmol/L 11/03/2024 24 - 32 CT [facility] eGFRcr SerPlBld CKD-EPI 2020 103.0 mL/min/1.73m2 11/03/2024 - [facility] BUN/Creat SerPl 36.7 Above high normal 11/03/2024 12 - 20 [facility] Phosphate SerPl-mCnc 3.0 mg/dL 11/03/2024 2.5 - 4.5 [facility] Ca-I Bld-mCnc 1.26 mg/dL 11/03/2024 1.19 - 1.35 CT [facility] WBC # Bld Auto 9.6 K/mcL 11/03/2024 4 - 10.5 [facility] RDW RBC Auto 14.3 % 11/03/2024 12.1 - 16.2 [facility] MCHC RBC Auto-EntMCnc 32.4 g/dL 11/03/2024 32 - 36 [facility] RBC # Bld Auto 2.49 M/mcL Below low normal 11/03/2024 4.2 - 5.4 [facility] MCH RBC Qn Auto 29.2 pcg 11/03/2024 25 - 33 [facility] Hgb Bld-mCnc 7.3 g/dL Below low normal 11/03/2024 12.5 - 16 [facility] Hct VFr Bld Auto 22.5 % Below low normal 11/03/2024 37 - 47 [facility] PMV Bld Auto 9.3 FL 11/03/2024 7.4 - 11.4 [facility] Platelet # Bld Auto 263.0 K/mcL 11/03/2024 150 - 450 [facility] RBC Auto 90.2 FL 11/03/2024 78 - 100 [facility] Glucose Bld-mCnc 180.0 mg/dL 11/03/2024 70 - 199 [facility] Base excess BldA Calc-sCnc 4.7 mmol/L Above high normal 11/02/2024 0 - 2 [facility] pCO2 BldA 42.0 mmHg 11/02/2024 35 - 45 [facility] SaO2 % BldA 98.7 % Above high normal 11/02/2024 95 - 98 [facility] Jt index Bld+IhG-Rto 30.0 11/02/2024 [facility] pH BldA 7.45 pH 11/02/2024 7.35 - 7.45 [facility] pO2 BldA 88.0 mmHg 11/02/2024 80 - 105 [facility] HCO3 BldA-sCnc 28.6 mmol/L Above high normal 11/02/2024 22 - 26 [facility] Glucose Bld-mCnc 138.0 mg/dL 11/02/2024 70 - 199 [facility] Glucose Bld-mCnc 170.0 mg/dL 11/02/2024 70 - 199 [facility] Glucose Bld-mCnc 184.0 mg/dL 11/02/2024 70 - 199 [facility] Glucose Bld-mCnc 141.0 mg/dL 11/02/2024 70 - 199 [facility] HCO3 BldA-sCnc 26.7 mmol/L Above high normal 11/02/2024 22 - 26 [facility] pCO2 BldA 39.0 mmHg 11/02/2024 35 - 45 [facility] pH BldA 7.44 pH 11/02/2024 7.35 - 7.45 [facility] Base excess BldA Calc-sCnc 2.3 mmol/L Above high normal 11/02/2024 0 - 2 [facility] SaO2 % BldA 99.7 % Above high normal 11/02/2024 95 - 98 [facility] pO2 BldA 103.0 mmHg 11/02/2024 80 - 105 [facility] Magnesium SerPl-mCnc 2.1 mg/dL 11/02/2024 1.7 - 2.8 [facility] Creat SerPl-mCnc 0.8 mg/dL 11/02/2024 0.5 - 1 CT [facility] Anion Gap SerPl Calc-sCnc 10.0 11/02/2024 5 - 14 [facility] BUN/Creat SerPl 36.3 Above high normal 11/02/2024 12 - 20 [facility] Glucose SerPl-mCnc 168.0 mg/dL 11/02/2024 70 - 199 [facility] Calcium SerPl-mCnc 9.4 mg/dL 11/02/2024 8.4 - 10.2 [facility] Potassium SerPl-sCnc 4.1 mmol/L 11/02/2024 3.5 - 5.1 [facility] Sodium SerPl-sCnc 138.0 mmol/L 11/02/2024 135 - 14 5 [facility] Chloride SerPl-sCnc 100.0 mmol/L 11/02/2024 98 - 107 [facility] CO2 SerPl-sCnc 28.0 mmol/L 11/02/2024 24 - 32 [facility] BUN SerPl-mCnc 29.0 mg/dL Above high normal 11/02/2024 7 - 1 7 [facility] eGFRcr SerPlBld CKD-EPI 2020 84.0 mL/min/1.73m2 11/02/2024 - [facility] Phosphate SerPl-mCnc 4.6 mg/dL Above high normal 11/02/2024 2.5 - 4.5 [facility] Ca-I Bld-mCnc 1.19 mg/dL 11/02/2024 1.19 - 1.35 CT [facility] Platelet # Bld Auto 234.0 K/mcL 11/02/2024 150 - 450 [facility] Hct VFr Bld Auto 24.4 % Below low normal 11/02/2024 37 - 47 [facility] MCHC RBC Auto-EntMCnc 32.2 g/dL 11/02/2024 32 - 36 [facility] PMV Bld Auto 9.1 FL 11/02/2024 7.4 - 11.4 [facility] RDW RBC Auto 14.2 % 11/02/2024 12.1 - 16.2 [facility] MCH RBC Qn Auto 29.3 pcg 11/02/2024 25 - 33 [facility] WBC # Bld Auto 8.2 K/mcL 11/02/2024 4 - 10.5 [facility] RBC Auto 91.0 FL 11/02/2024 78 - 100 [facility] N Hgb Bld-mCnc 7.9 g/dL Below low normal 11/02/2024 12.5 - 16 [facility] RBC # Bld Auto 2.69 M/mcL Below low normal 11/02/2024 4.2 - 5.4 [facility] Glucose Bld-mCnc 157.0 mg/dL 11/02/2024 70 - 199 [facility] Glucose Bld-mCnc 156.0 mg/dL 11/02/2024 70 - 199 [facility] Glucose Bld-mCnc 169.0 mg/dL 11/01/2024 70 - 199 [facility] Phosphate SerPl-mCnc 6.2 mg/dL Above high normal 11/01/2024 2.5 - 4.5 [facility] Magnesium SerPl-mCnc 2.1 mg/dL 11/01/2024 1.7 - 2.8 [facility] BUN SerPl-mCnc 22.0 mg/dL Above high normal 11/01/2024 7 - 1 7 [facility] Creat SerPl-mCnc 0.9 mg/dL 11/01/2024 0.5 - 1 CT [facility] Sodium SerPl-sCnc 136.0 mmol/L 11/01/2024 135 - 14 5 [facility] CO2 SerPl-sCnc 25.0 mmol/L 11/01/2024 24 - 32 [facility] Calcium SerPl-mCnc 9.4 mg/dL 11/01/2024 8.4 - 10.2 [facility] BUN/Creat SerPl 24.4 Above high normal 11/01/2024 12 - 20 [facility] eGFRcr SerPlBld CKD-EPI 2020 73.0 mL/min/1.73m2 11/01/2024 - [facility] Anion Gap SerPl Calc-sCnc 14.0 11/01/2024 5 - 14 [facility] Chloride SerPl-sCnc 97.0 mmol/L Below low normal 11/01/2024 98 - 107 [facility] Potassium SerPl-sCnc 4.2 mmol/L 11/01/2024 3.5 - 5.1 [facility] Glucose SerPl-mCnc 155.0 mg/dL 11/01/2024 70 - 199 [facility] Ca-I Bld-mCnc 1.09 mg/dL Below low normal 11/01/2024 1.19 - 1.35 [facility] Glucose Bld-mCnc 141.0 mg/dL 11/01/2024 70 - 199 [facility] SaO2 % BldA 98.7 % Above high normal 11/01/2024 95 - 98 [facility] Base excess BldA Calc-sCnc 2.6 mmol/L Above high normal 11/01/2024 0 - 2 [facility] HCO3 BldA-sCnc 27.0 mmol/L Above high normal 11/01/2024 22 - 26 [facility] pH BldA 7.43 pH 11/01/2024 7.35 - 7.45 [facility] pCO2 BldA 41.0 mmHg 11/01/2024 35 - 45 [facility] N pO2 BldA 93.0 mmHg 11/01/2024 80 - 105 [facility] N eGFRcr SerPlBld CKD-EPI 2020 99.0 mL/min/1.73m2 11/01/2024 - [facility] Chloride SerPl-sCnc 99.0 mmol/L 11/01/2024 98 - 107 [facility] BUN/Creat SerPl 24.3 Above high normal 11/01/2024 12 - 20 [facility] Creat SerPl-mCnc 0.7 mg/dL 11/01/2024 0.5 - 1 CT [facility] Potassium SerPl-sCnc 4.0 mmol/L 11/01/2024 3.5 - 5.1 [facility] CO2 SerPl-sCnc 27.0 mmol/L 11/01/2024 24 - 32 CT [facility] Anion Gap SerPl Calc-sCnc 12.0 11/01/2024 5 - 14 [facility] Glucose SerPl-mCnc 126.0 mg/dL 11/01/2024 70 - 199 [facility] Calcium SerPl-mCnc 9.1 mg/dL 11/01/2024 8.4 - 10.2 [facility] Sodium SerPl-sCnc 138.0 mmol/L 11/01/2024 135 - 14 5 [facility] BUN SerPl-mCnc 17.0 mg/dL 11/01/2024 7 - 17 [facility] Phosphate SerPl-mCnc 4.4 mg/dL 11/01/2024 2.5 - 4.5 [facility] Magnesium SerPl-mCnc 2.4 mg/dL 11/01/2024 1.7 - 2.8 [facility] RBC Auto 90.6 FL 11/01/2024 78 - 100 [facility] RBC # Bld Auto 2.78 M/mcL Below low normal 11/01/2024 4.2 - 5.4 [facility] MCH RBC Qn Auto 29.7 pcg 11/01/2024 25 - 33 [facility] WBC # Bld Auto 8.5 K/mcL 11/01/2024 4 - 10.5 [facility] RBC Auto-EntMCnc 32.8 g/dL 11/01/2024 32 - 36 [facility] Platelet # Bld Auto 214.0 K/mcL 11/01/2024 150 - 450 [facility] Hgb Bld-mCnc 8.3 g/dL Below low normal 11/01/2024 12.5 - 16 [facility] Hct VFr Bld Auto 25.2 % Below low normal 11/01/2024 37 - 47 [facility] RDW RBC Auto 14.6 % 11/01/2024 12.1 - 16.2 [facility] PMV Bld Auto 8.9 FL 11/01/2024 7.4 - 11.4 [facility] Ca-I Bld-mCnc 1.17 mg/dL Below low normal 11/01/2024 1.19 - 1.35 [facility] Glucose Bld-mCnc 133.0 mg/dL 11/01/2024 70 - 199 [facility] Glucose Bld-mCnc 135.0 mg/dL 11/01/2024 70 - 199 [facility] Glucose Bld-mCnc 137.0 mg/dL 11/01/2024 70 - 199 [facility] Glucose Bld-mCnc 134.0 mg/dL 10/31/2024 70 - 199 [facility] SaO2 % BldA 99.6 % Above high normal 10/31/2024 95 - 98 [facility] pCO2 BldA 36.0 mmHg 10/31/2024 35 - 45 [facility] N pO2 BldA 145.0 mmHg Above high normal 10/31/2024 80 - 105 [facility] Base excess BldA Calc-sCnc 3.4 mmol/L Above high normal 10/31/2024 0 - 2 [facility] Jt index Bld+IhG-Rto 40.0 10/31/2024 [facility] HCO3 BldA-sCnc 27.6 mmol/L Above high normal 10/31/2024 22 - 26 [facility] pH BldA 7.48 pH Above high normal 10/31/2024 7.35 - 7.45 [facility] Anion Gap SerPl Calc-sCnc 12.0 10/31/2024 5 - 14 [facility] Creat SerPl-mCnc 0.7 mg/dL 10/31/2024 0.5 - 1 CT [facility] Calcium SerPl-mCnc 9.0 mg/dL 10/31/2024 8.4 - 10.2 [facility] eGFRcr SerPlBld CKD-EPI 2020 99.0 mL/min/1.73m2 10/31/2024 - [facility] CO2 SerPl-sCnc 26.0 mmol/L 10/31/2024 24 - 32 CT [facility] BUN SerPl-mCnc 14.0 mg/dL 10/31/2024 7 - 17 [facility] Sodium SerPl-sCnc 139.0 mmol/L 10/31/2024 135 - 14 5 [facility] Chloride SerPl-sCnc 101.0 mmol/L 10/31/2024 98 - 107 [facility] Potassium SerPl-sCnc 3.7 mmol/L 10/31/2024 3.5 - 5.1 [facility] BUN/Creat SerPl 20.0 10/31/2024 12 - 20 [facility] Glucose SerPl-mCnc 124.0 mg/dL 10/31/2024 70 - 199 [facility] Magnesium SerPl-mCnc 1.9 mg/dL 10/31/2024 1.7 - 2.8 [facility] Jt index Bld+IhG-Rto 40.0 10/31/2024 [facility] pCO2 BldA 34.0 mmHg Below low normal 10/31/2024 35 - 45 [facility] pH BldA 7.48 pH Above high normal 10/31/2024 7.35 - 7.45 [facility] Base excess BldA Calc-sCnc 2.2 mmol/L Above high normal 10/31/2024 0 - 2 [facility] HCO3 BldA-sCnc 26.7 mmol/L Above high normal 10/31/2024 22 - 26 [facility] SaO2 % BldA 100.0 % Above high normal 10/31/2024 95 - 98 [facility] pO2 BldA 119.0 mmHg Above high normal 10/31/2024 80 - 105 [facility] HCO3 BldA-sCnc 24.4 mmol/L 10/31/2024 22 - 26 [facility] Jt index Bld+IhG-Rto 40.0 10/31/2024 [facility] SaO2 % BldA 99.8 % Above high normal 10/31/2024 95 - 98 [facility] Base excess BldA Calc-sCnc -0.8 mmol/L Below low normal 10/31/2024 0 - 2 [facility] pO2 BldA 157.0 mmHg Above high normal 10/31/2024 80 - 105 [facility] pCO2 BldA 37.0 mmHg 10/31/2024 35 - 45 [facility] N pH BldA 7.41 pH 10/31/2024 7.35 - 7.45 [facility] Glucose Bld-mCnc 138.0 mg/dL 10/31/2024 70 - 199 [facility] HCO3 BldA-sCnc 25.0 mmol/L 10/31/2024 22 - 26 [facility] pCO2 BldA 40.0 mmHg 10/31/2024 35 - 45 [facility] N Base excess BldA Calc-sCnc 0.0 mmol/L 10/31/2024 0 - 2 [facility] pH BldA 7.4 pH 10/31/2024 7.35 - 7.45 [facility] SaO2 % BldA 99.9 % Above high normal 10/31/2024 95 - 98 [facility] pO2 BldA 138.0 mmHg Above high normal 10/31/2024 80 - 105 [facility] Phosphate SerPl-mCnc 3.6 mg/dL 10/31/2024 2.5 - 4.5 [facility] Magnesium SerPl-mCnc 1.9 mg/dL 10/31/2024 1.7 - 2.8 [facility] Glucose SerPl-mCnc 146.0 mg/dL 10/31/2024 70 - 199 [facility] Potassium SerPl-sCnc 3.6 mmol/L 10/31/2024 3.5 - 5.1 [facility] BUN/Creat SerPl 23.3 Above high normal 10/31/2024 12 - 20 [facility] BUN SerPl-mCnc 14.0 mg/dL 10/31/2024 7 - 17 [facility] Calcium SerPl-mCnc 8.7 mg/dL 10/31/2024 8.4 - 10.2 [facility] Chloride SerPl-sCnc 107.0 mmol/L 10/31/2024 98 - 107 [facility] Anion Gap SerPl Calc-sCnc 9.0 10/31/2024 5 - 14 [facility] CO2 SerPl-sCnc 24.0 mmol/L 10/31/2024 24 - 32 CT [facility] Sodium SerPl-sCnc 140.0 mmol/L 10/31/2024 135 - 14 5 [facility] eGFRcr SerPlBld CKD-EPI 2020 103.0 mL/min/1.73m2 10/31/2024 - [facility] Creat SerPl-mCnc 0.6 mg/dL 10/31/2024 0.5 - 1 CT [facility] Ca-I Bld-mCnc 1.22 mg/dL 10/31/2024 1.19 - 1.35 CT [facility] Hgb Bld-mCnc 7.7 g/dL Below low normal 10/31/2024 12.5 - 16 [facility] MCHC RBC Auto-EntMCnc 32.5 g/dL 10/31/2024 32 - 36 [facility] RBC Auto 91.5 FL 10/31/2024 78 - 100 [facility] Platelet # Bld Auto 161.0 K/mcL 10/31/2024 150 - 450 [facility] WBC # Bld Auto 8.6 K/mcL 10/31/2024 4 - 10.5 [facility] RBC # Bld Auto 2.58 M/mcL Below low normal 10/31/2024 4.2 - 5.4 [facility] Hct VFr Bld Auto 23.6 % Below low normal 10/31/2024 37 - 47 [facility] PMV Bld Auto 8.9 FL 10/31/2024 7.4 - 11.4 [facility] MCH RBC Qn Auto 29.7 pcg 10/31/2024 25 - 33 CT_ [facility] RDW RBC Auto 14.7 % 10/31/2024 12.1 - 16.2 [facility] Glucose Bld-mCnc 155.0 mg/dL 10/31/2024 70 - 199 [facility] Glucose Bld-mCnc 129.0 mg/dL 10/31/2024 70 - 199 [facility] Glucose Bld-mCnc 140.0 mg/dL 10/31/2024 70 - 199 [facility] pH BldA 7.39 pH 10/30/2024 7.35 - 7.45 [facility] Base excess BldA Calc-sCnc -1.2 mmol/L Below low normal 10/30/2024 0 - 2 [facility] HCO3 BldA-sCnc 24.0 mmol/L 10/30/2024 22 - 26 CT [facility] Arterial patency Wrist a Pass 10/30/2024 - [facility] pO2 BldA 139.0 mmHg Above high normal 10/30/2024 80 - 105 [facility] pCO2 BldA 39.0 mmHg 10/30/2024 35 - 45 [facility] Jt index Bld+IhG-Rto 40.0 10/30/2024 [facility] SaO2 % BldA 100.0 % Above high normal 10/30/2024 95 - 98 [facility] Glucose Bld-mCnc 136.0 mg/dL 10/30/2024 70 - 199 [facility] Squamous #/area UrnS HPF -1.1 mmol/L 10/30/2024 [facility] pO2 BldMV 42.0 mmHg 10/30/2024 [facility] Mucous Threads #/area UrnS HPF 23.5 mmol/L 10/30/2024 [facility] Cystine Cry #/area UrnS HPF 7.35 pH 10/30/2024 7.35 - 7.45 [facility] Mixed Cell Casts #/area UrnS HPF 45.0 mmHg 10/30/2024 [facility] Trigl SerPl-mCnc 225.0 mg/dL Above high normal 10/30/2024 - 150 [facility] Glucose Bld-mCnc 153.0 mg/dL 10/30/2024 70 - 199 [facility] Jt index Bld+IhG-Rto 50.0 10/30/2024 [facility] Base excess BldA Calc-sCnc -2.5 mmol/L Below low normal 10/30/2024 0 - 2 [facility] pO2 BldA 142.0 mmHg Above high normal 10/30/2024 80 - 105 [facility] pCO2 BldA 39.0 mmHg 10/30/2024 35 - 45 [facility] SaO2 % BldA 99.3 % Above high normal 10/30/2024 95 - 98 [facility] Arterial patency Wrist a Pass 10/30/2024 - [facility] HCO3 BldA-sCnc 23.0 mmol/L 10/30/2024 22 - 26 CT [facility] pH BldA 7.37 pH 10/30/2024 7.35 - 7.45 [facility] Glucose Bld-mCnc 138.0 mg/dL 10/30/2024 70 - 199 [facility] Sodium SerPl-sCnc 140.0 mmol/L 10/30/2024 135 - 14 5 [facility] Potassium SerPl-sCnc 4.1 mmol/L 10/30/2024 3.5 - 5.1 [facility] CO2 SerPl-sCnc 22.0 mmol/L Below low normal 10/30/2024 24 - 32 [facility] Glucose SerPl-mCnc 131.0 mg/dL 10/30/2024 70 - 199 [facility] Creat SerPl-mCnc 0.7 mg/dL 10/30/2024 0.5 - 1 CT [facility] BUN/Creat SerPl 17.1 10/30/2024 12 - 20 CT_ [facility] Chloride SerPl-sCnc 110.0 mmol/L Above high normal 10/30/2024 98 - 107 [facility] BUN SerPl-mCnc 12.0 mg/dL 10/30/2024 7 - 17 CT_ [facility] eGFRcr SerPlBld CKD-EPI 2020 99.0 mL/min/1.73m2 10/30/2024 - [facility] Calcium SerPl-mCnc 8.8 mg/dL 10/30/2024 8.4 - 10.2 [facility] Anion Gap SerPl Calc-sCnc 8.0 10/30/2024 5 - 14 [facility] Magnesium SerPl-mCnc 2.0 mg/dL 10/30/2024 1.7 - 2.8 [facility] Phosphate SerPl-mCnc 2.8 mg/dL 10/30/2024 2.5 - 4.5 [facility] PMV Bld Auto 8.8 FL 10/30/2024 7.4 - 11.4 [facility] RDW RBC Auto 15.0 % 10/30/2024 12.1 - 16.2 [facility] MCH RBC Qn Auto 30.2 pcg 10/30/2024 25 - 33 CT_ [facility] RBC Auto 89.9 FL 10/30/2024 78 - 100 [facility] RBC # Bld Auto 2.54 M/mcL Below low normal 10/30/2024 4.2 - 5.4 [facility] MCHC RBC Auto-EntMCnc 33.6 g/dL 10/30/2024 32 - 36 [facility] Platelet # Bld Auto 153.0 K/mcL 10/30/2024 150 - 450 [facility] Hct VFr Bld Auto 22.9 % Below low normal 10/30/2024 37 - 47 [facility] Hgb Bld-mCnc 7.7 g/dL Below low normal 10/30/2024 12.5 - 16 [facility] WBC # Bld Auto 8.7 K/mcL 10/30/2024 4 - 10.5 [facility] Mixed Cell Casts #/area UrnS HPF 45.0 mmHg 10/30/2024 [facility] Squamous #/area UrnS HPF -3.1 mmol/L 10/30/2024 [facility] pO2 BldMV 42.0 mmHg 10/30/2024 [facility] Cystine Cry #/area UrnS HPF 7.32 pH Below low normal 10/30/2024 7.35 - 7.45 [facility] Mucous Threads #/area UrnS HPF 21.8 mmol/L 10/30/2024 [facility] Ca-I Bld-mCnc 1.19 mg/dL 10/30/2024 1.19 - 1.35 CT [facility] pH BldA 7.36 pH 10/30/2024 7.35 - 7.45 [facility] HCO3 BldA-sCnc 23.2 mmol/L 10/30/2024 22 - CT [facility] SaO2 % BldA 100.0 % Above high normal 10/30/2024 95 - 98 [facility] pCO2 BldA 41.0 mmHg 10/30/2024 35 - 45 [facility] pO2 BldA 120.0 mmHg Above high normal 10/30/2024 80 - 105 [facility] Base excess BldA Calc-sCnc -2.2 mmol/L Below low normal 10/30/2024 0 - 2 [facility] Glucose Bld-mCnc 143.0 mg/dL 10/30/2024 70 - 199 [facility] Glucose Bld-mCnc 81.0 mg/dL 10/30/2024 70 - 199 C T[facility] Glucose Bld-mCnc 134.0 mg/dL 10/29/2024 70 - 199 [facility] pCO2 BldA 40.0 mmHg 10/29/2024 35 - 45 [facility] HCO3 BldA-sCnc 24.4 mmol/L 10/29/2024 22 - 26 CT [facility] Jt index Bld+IhG-Rto 40.0 10/29/2024 [facility] pH BldA 7.39 pH 10/29/2024 7.35 - 7.45 [facility] SaO2 % BldA 99.8 % Above high normal 10/29/2024 95 - 98 [facility] pO2 BldA 179.0 mmHg Above high normal 10/29/2024 80 - 105 [facility] Base excess BldA Calc-sCnc -0.7 mmol/L Below low normal 10/29/2024 0 - 2 [facility] Creat SerPl-mCnc 0.8 mg/dL 10/29/2024 0.5 - 1 CT [facility] Anion Gap SerPl Calc-sCnc 12.0 10/29/2024 5 - 14 [facility] Chloride SerPl-sCnc 105.0 mmol/L 10/29/2024 98 - 107 [facility] Glucose SerPl-mCnc 131.0 mg/dL 10/29/2024 70 - 199 [facility] BUN/Creat SerPl 13.8 10/29/2024 12 - 20 CT_ [facility] eGFRcr SerPlBld CKD-EPI 2020 84.0 mL/min/1.73m2 10/29/2024 - [facility] Potassium SerPl-sCnc 3.1 mmol/L Below low normal 10/29/2024 3.5 - 5.1 [facility] BUN SerPl-mCnc 11.0 mg/dL 10/29/2024 7 - 17 CT_ [facility] Sodium SerPl-sCnc 141.0 mmol/L 10/29/2024 135 - 14 5 [facility] CO2 SerPl-sCnc 24.0 mmol/L 10/29/2024 24 - 32 CT [facility] Calcium SerPl-mCnc 9.0 mg/dL 10/29/2024 8.4 - 10.2 [facility] Magnesium SerPl-mCnc 2.1 mg/dL 10/29/2024 1.7 - 2.8 [facility] Mixed Cell Casts #/area UrnS HPF 38.0 mmHg 10/29/2024 [facility] Squamous #/area UrnS HPF -2.3 mmol/L 10/29/2024 [facility] Mucous Threads #/area UrnS HPF 22.6 mmol/L 10/29/2024 [facility] Cystine Cry #/area UrnS HPF 7.38 pH 10/29/2024 7.35 - 7.45 [facility] pO2 BldMV 43.0 mmHg 10/29/2024 [facility] Glucose Bld-mCnc 142.0 mg/dL 10/29/2024 70 - 199 [facility] pCO2 BldA 39.0 mmHg 10/29/2024 35 - 45 [facility] pO2 BldA 70.0 mmHg Below low normal 10/29/2024 80 - 105 CT [facility] pH BldA 7.42 pH 10/29/2024 7.35 - 7.45 [facility] Jt index Bld+IhG-Rto 40.0 10/29/2024 [facility] Base excess BldA Calc-sCnc 0.8 mmol/L 10/29/2024 0 - 2 [facility] HCO3 BldA-sCnc 25.5 mmol/L 10/29/2024 22 - 26 CT [facility] SaO2 % BldA 97.4 % 10/29/2024 95 - 98 [facility] pCO2 BldA 37.0 mmHg 10/29/2024 35 - 45 [facility] Jt index Bld+IhG-Rto 30.0 10/29/2024 [facility] SaO2 % BldA 94.1 % Below low normal 10/29/2024 95 - 98 [facility] HCO3 BldA-sCnc 25.2 mmol/L 10/29/2024 22 - 26 CT [facility] pO2 BldA 60.0 mmHg Below low normal 10/29/2024 80 - 105 CT [facility] Base excess BldA Calc-sCnc 0.5 mmol/L 10/29/2024 0 - 2 [facility] pH BldA 7.43 pH 10/29/2024 7.35 - 7.45 [facility] Glucose Bld-mCnc 114.0 mg/dL 10/29/2024 70 - 199 [facility] Mucous Threads #/area UrnS HPF 23.1 mmol/L 10/29/2024 [facility] Mixed Cell Casts #/area UrnS HPF 41.0 mmHg 10/29/2024 [facility] pO2 BldMV 39.0 mmHg 10/29/2024 [facility] Squamous #/area UrnS HPF -1.5 mmol/L 10/29/2024 [facility] Cystine Cry #/area UrnS HPF 7.37 pH 10/29/2024 7.35 - 7.45 [facility] pO2 BldA 82.0 mmHg 10/29/2024 80 - 105 [facility] HCO3 BldA-sCnc 22.6 mmol/L 10/29/2024 22 - 26 CT [facility] pH BldA 7.37 pH 10/29/2024 7.35 - 7.45 [facility] SaO2 % BldA 97.8 % 10/29/2024 95 - 98 [facility] pCO2 BldA 38.0 mmHg 10/29/2024 35 - 45 [facility] Base excess BldA Calc-sCnc -2.9 mmol/L Below low normal 10/29/2024 0 - 2 [facility] Troponin I SerPl HS-mCnc 725.0 ng/L Critically high 10/29/2024 0 - 14 [facility] Magnesium SerPl-mCnc 1.9 mg/dL 10/29/2024 1.7 - 2.8 [facility] Phosphate SerPl-mCnc 3.7 mg/dL 10/29/2024 2.5 - 4.5 [facility] eGFRcr SerPlBld CKD-EPI 2020 84.0 mL/min/1.73m2 10/29/2024 - [facility] Chloride SerPl-sCnc 109.0 mmol/L Above high normal 10/29/2024 98 - 107 [facility] CO2 SerPl-sCnc 23.0 mmol/L Below low normal 10/29/2024 24 - 32 [facility] Calcium SerPl-mCnc 8.0 mg/dL Below low normal 10/29/2024 8.4 - 10.2 [facility] Creat SerPl-mCnc 0.8 mg/dL 10/29/2024 0.5 - 1 CT [facility] BUN SerPl-mCnc 13.0 mg/dL 10/29/2024 7 - 17 [facility]_ [facility] Glucose SerPl-mCnc 140.0 mg/dL Above high normal 10/29/2024 70 - 99 [facility] BUN/Creat SerPl 16.3 10/29/2024 12 - 20 [facility]_ [facility] Anion Gap SerPl Calc-sCnc 9.0 10/29/2024 5 - 14 [facility] Sodium SerPl-sCnc 141.0 mmol/L 10/29/2024 135 - 14 5 [facility] Potassium SerPl-sCnc 3.0 mmol/L Below low normal 10/29/2024 3.5 - 5.1 [facility] MCH RBC Qn Auto 29.6 pcg 10/29/2024 25 - 33 [facility]_ [facility] RBC Auto 90.9 FL 10/29/2024 78 - 100 [facility] Platelet # Bld Auto 193.0 K/mcL 10/29/2024 150 - 450 [facility] WBC # Bld Auto 11.7 K/mcL Above high normal 10/29/2024 4 - 1 0.5 [facility] Hgb Bld-mCnc 9.1 g/dL Below low normal 10/29/2024 12.5 - 16 [facility] MCHC RBC Auto-EntMCnc 32.6 g/dL 10/29/2024 32 - 36 [facility] PMV Bld Auto 8.7 FL 10/29/2024 7.4 - 11.4 [facility] RBC # Bld Auto 3.06 M/mcL Below low normal 10/29/2024 4.2 - 5.4 [facility] Hct VFr Bld Auto 27.8 % Below low normal 10/29/2024 37 - 47 [facility] RDW RBC Auto 14.9 % 10/29/2024 12.1 - 16.2 [facility] Ca-I Bld-mCnc 1.11 mg/dL Below low normal 10/29/2024 1.19 - 1.35 [facility] Lactate Bld-sCnc 1.3 mmol/L 10/29/2024 0.5 - 2.2 C [facility] Glucose Bld-mCnc 147.0 mg/dL 10/29/2024 70 - 199 [facility] Mixed Cell Casts #/area UrnS HPF 39.0 mmHg 10/29/2024 [facility] pO2 BldMV 39.0 mmHg 10/29/2024 [facility] Mucous Threads #/area UrnS HPF 23.9 mmol/L 10/29/2024 [facility] Squamous #/area UrnS HPF -0.5 mmol/L 10/29/2024 [facility] Cystine Cry #/area UrnS HPF 7.4 pH 10/29/2024 7.35 - 7.45 [facility] Glucose Bld-mCnc 145.0 mg/dL 10/29/2024 70 - 199 [facility] Troponin I SerPl HS-mCnc 964.0 ng/L Critically high 10/29/2024 0 - 14 [facility] Lactate Bld-sCnc 1.0 mmol/L 10/29/2024 0.5 - 2.2 C [facility] SaO2 % BldA 98.9 % Above high normal 10/29/2024 95 - 98 [facility] Base excess BldA Calc-sCnc -0.6 mmol/L Below low normal 10/29/2024 0 - 2 [facility] pH BldA 7.43 pH 10/29/2024 7.35 - 7.45 [facility] pCO2 BldA 35.0 mmHg 10/29/2024 35 - 45 [facility] HCO3 BldA-sCnc 24.5 mmol/L 10/29/2024 22 - 26 CT [facility] pO2 BldA 98.0 mmHg 10/29/2024 80 - 105 [facility] Troponin I SerPl HS-mCnc 1101.0 ng/L Critically high 10/29/2024 0 - 14 [facility] Trigl SerPl-mCnc 334.0 mg/dL Above high normal 10/29/2024 - 150 [facility] pO2 BldMV 34.0 mmHg 10/29/2024 [facility] Mucous Threads #/area UrnS HPF 24.1 mmol/L 10/29/2024 [facility] Mixed Cell Casts #/area UrnS HPF 40.0 mmHg 10/29/2024 [facility] Squamous #/area UrnS HPF 0.0 mmol/L 10/29/2024 [facility] Cystine Cry #/area UrnS HPF 7.4 pH 10/29/2024 7.35 - 7.45 [facility] Glucose Bld-mCnc 143.0 mg/dL 10/29/2024 70 - 199 [facility] Lactate Bld-sCnc 1.2 mmol/L 10/29/2024 0.5 - 2.2 C [facility] pH BldA 7.3 pH Below low normal 10/28/2024 7.35 - 7.45 [facility] SaO2 % BldA 99.8 % Above high normal 10/28/2024 95 - 98 [facility] pCO2 BldA 36.0 mmHg 10/28/2024 35 - 45 [facility] Base excess BldA Calc-sCnc -7.9 mmol/L Below low normal 10/28/2024 0 - 2 [facility] pO2 BldA 117.0 mmHg Above high normal 10/28/2024 80 - 105 [facility] HCO3 BldA-sCnc 18.8 mmol/L Below low normal 10/28/2024 22 - 26 [facility] Jt index Bld+IhG-Rto 30.0 10/28/2024 [facility] HbA1c MFr Bld 5.8 % Above high normal 10/29/2024 - 5.7 [facility] Est. average glucose Bld gHb Est-mCnc 120.0 mg/dL 10/29/2024 [facility] Troponin I SerPl HS-mCnc 1481.0 ng/L Critically high 10/28/2024 0 - 14 [facility] Trigl SerPl-mCnc 199.0 mg/dL Above high normal 10/28/2024 - 150 [facility] VLDLc SerPl Calc-mCnc 39.8 mg/dL 10/28/2024 [facility] HDLc SerPl-mCnc 46.0 mg/dL 10/28/2024 37 - 92 CT [facility] LDLc SerPl Calc-mCnc 87.0 mg/dL 10/28/2024 50 - 130 [facility] Cholest SerPl-mCnc 173.0 mg/dL 10/28/2024 0 - 200 [facility] Phosphate SerPl-mCnc 4.0 mg/dL 10/28/2024 2.5 - 4.5 [facility] Sodium SerPl-sCnc 142.0 mmol/L 10/28/2024 135 - 14 5 [facility] Chloride SerPl-sCnc 112.0 mmol/L Above high normal 10/28/2024 98 - 107 [facility] BUN SerPl-mCnc 15.0 mg/dL 10/28/2024 7 - 17 [facility]_ [facility] eGFRcr SerPlBld CKD-EPI 2020 73.0 mL/min/1.73m2 10/28/2024 - [facility] ALT SerPl-cCnc 50.0 unit/L 10/28/2024 7 - 52 CT [facility] Albumin SerPl-mCnc 3.4 g/dL Below low normal 10/28/2024 3.5 - 5 [facility] Bilirub SerPl-mCnc 0.4 mg/dL 10/28/2024 0.3 - 1 [facility] AST SerPl-cCnc 68.0 unit/L Above high normal 10/28/2024 5 - 40 [facility] Glucose SerPl-mCnc 131.0 mg/dL Above high normal 10/28/2024 70 - 99 [facility] ALP SerPl-cCnc 75.0 unit/L 10/28/2024 34 - 104 CT [facility] Anion Gap SerPl Calc-sCnc 9.0 10/28/2024 5 - 14 [facility] BUN/Creat SerPl 16.7 10/28/2024 12 - 20 [facility]_ [facility] Prot SerPl-mCnc 5.8 g/dL Below low normal 10/28/2024 6.4 - 8.5 [facility] Calcium SerPl-mCnc 8.5 mg/dL 10/28/2024 8.4 - 10.2 [facility] Potassium SerPl-sCnc 3.8 mmol/L 10/28/2024 3.5 - 5.1 [facility] CO2 SerPl-sCnc 21.0 mmol/L Below low normal 10/28/2024 24 - 32 [facility] Creat SerPl-mCnc 0.9 mg/dL 10/28/2024 0.5 - 1 CT [facility] Bilirub SerPl-mCnc 0.4 mg/dL 10/28/2024 0.3 - 1 [facility] Bilirub Indirect SerPl-mCnc 0.4 mg/dL 10/28/2024 [facility] Bilirub Direct SerPl-mCnc 0.0 mg/dL 10/28/2024 0 - 0.2 [facility] Magnesium SerPl-mCnc 1.7 mg/dL 10/28/2024 1.7 - 2.8 [facility] aPTT PPP 59.4 sec Above high normal 10/28/2024 25 - 37 C [facility] PT Bld 11.2 sec 10/28/2024 10.5 - 13.3 [facility] INR PPP 1.0 10/28/2024 0.8 - 1.1 [facility] Lactate Bld-sCnc 1.0 mmol/L 10/28/2024 0.5 - 2.2 C [facility] Ca-I Bld-mCnc 1.17 mg/dL Below low normal 10/28/2024 1.19 - 1.35 [facility] Eosinophil NFr Bld Auto 0.2 % 10/28/2024 0 - 6 [facility] Hct VFr Bld Auto 28.7 % Below low normal 10/28/2024 37 - 47 [facility] PMV Bld Auto 8.6 FL 10/28/2024 7.4 - 11.4 [facility] Lymphocytes # Bld Auto 2.1 K/mcL 10/28/2024 1 - 3.2 [facility] RBC # Bld Auto 3.2 M/mcL Below low normal 10/28/2024 4.2 - 5 .4 [facility] Platelet # Bld Auto 243.0 K/mcL 10/28/2024 150 - 450 [facility] Neutrophils NFr Bld Auto 69.6 % 10/28/2024 44 - 74 [facility] Basophils NFr Bld Auto 0.3 % 10/28/2024 0 - 2 [facility] Lymphocytes NFr Bld Auto 18.2 % Below low normal 10/28/2024 20 - 48 [facility] WBC # Bld Auto 11.4 K/mcL Above high normal 10/28/2024 4 - 1 0.5 [facility] Monocytes # Bld Auto 1.3 K/mcL Above high normal 10/28/2024 0 - 0.8 [facility] Basophils # Bld Auto 0.0 K/mcL 10/28/2024 0 - 0.2 [facility] Hgb Bld-mCnc 9.5 g/dL Below low normal 10/28/2024 12.5 - 16 [facility] RBC Auto 89.5 FL 10/28/2024 78 - 100 [facility] Monocytes NFr Bld Auto 11.7 % 10/28/2024 2 - 12 [facility] MCHC RBC Auto-EntMCnc 33.3 g/dL 10/28/2024 32 - 36 [facility] RDW RBC Auto 14.7 % 10/28/2024 12.1 - 16.2 [facility] MCH RBC Qn Auto 29.8 pcg 10/28/2024 25 - 33 [facility] Neutrophils # Bld Auto 7.9 K/mcL Above high normal 10/28/2024 1.8 - 7.8 [facility] Eosinophil # Bld Auto 0.0 K/mcL 10/28/2024 0 - 0.5 [facility] History of Medication Use Medication Directions Dispensed Refills Start Date End Date Stat us ondansetron (PF) (ZOFRAN) injection 4 mg 4 mg, intravenous, Once, On Thu11/15/24 at 0045, For 1 dose 11/15/2024 11/16/19 completed multivitamin minerals-iron (THERA-M) 9 mg iron-400 mcg tablet Take 1 tablet by mouth 1 (one) time each day. 11/15/2024 active oxyCODONE (ROXICODONE) immediate release tablet 15 mg 15 mg, oral, Every 6 hours PRN, moderate pain, Starting on 11/12/24 at 1320 11/12/2024 active cefTRIAXone (ROCEPHIN) 1 g in sterile water 10 mL IV syringe 1 g, intravenous, Administer over 3 Minutes, Every 24 hours, First dose on Thu11/11/24 at 0900, For 5 doses, Do not administer simultaneously with any calcium containing solutions via a Y-site in any patient., Indication: Pneumonia, Community Acquired 11/11/2024 11/16/19 aborted HYDROmorphone (DILAUDID) injection 0.5 mg 0.5 mg, intravenous, Once, On Thu11/13/24 at 0000, For 1 dose 11/11/2024 11/14/19 completed iopamidoL (ISOVUE-370) 370 mg iodine /mL (76 %) injection 70 mL 70 mL, intravenous, Once in imaging, Starting on Thu11/11/24 at 0154, For 1 dose 11/11/2024 11/12/19 completed potassium chloride (KLOR-CON M20) CR tablet 40 mEq 40 mEq, oral, Once, On Thu11/11/24 at 0900, For 1 dose, Tablet may be swallowed whole (do not crush/chew/suck on) OR broken in half and each half swallowed separately OR dissolved (whole tablet) in ~4 ounces of water (allow ~2 minutes to dissolve, stir well and administer immediately). 11/11/2024 11/12/19 completed pantoprazole (PROTONIX) EC tablet 40 mg 40 mg, oral, Every morning before breakfast, First dose (after last reorder) on Thu11/13/24 at 0700, Do not crush, chew, or split. 11/10/2024 11/13/19 active levETIRAcetam (KEPPRA) 500 mg tablet Take 1 tablet (500 mg total) by mouth 2 (two) times a day. 11/10/2024 active iopamidoL (ISOVUE-250) 250 mg iodine /mL (51 %) injection 50 mL 50 mL, oral, Once in imaging, Starting on Thu11/09/24 at 1345, For 1 dose 11/09/2024 11/10/19 completed diazePAM (VALIUM) 5 mg tablet Take 1 tablet (5 mg total) by mouth every 12 (twelve) hours. Max Daily Amount: 10 mg 11/09/2024 active acetaZOLAMIDE (DIAMOX) injection 500 mg 500 mg, intravenous, Every 8 hours, First dose on Thu11/06/24 at 0800, For 3 doses, Reconstitute with 5 mL STERILE WATER to provide a solution containing 100 mg/mL. For IV Push - administer IV over 3 minutes 11/06/2024 11/07/19 aborted acetaminophen (TYLENOL) tablet 1,000 mg 1,000 mg, g-tube, Every 6 hours PRN, mild pain, Starting on Thu11/04/24 at 2238 11/05/2024 11/11/19 aborted fentaNYL (PF) (SUBLIMAZE) injection 50 mcg 50 mcg, intravenous, Every 1 hour PRN, severe pain, CPOT > 2, Starting on Thu11/05/24 at 0747 11/05/2024 11/09/19 aborted midazolam (VERSED) bolus from infusion 2 mg 2 mg, intravenous, Every 15 min PRN, With each infusion rate increase, for ICU use only, Starting on Thu11/05/24 at 1123, Bolus from infusion 11/05/2024 11/09/19 aborted midazolam in sodium chloride (VERSED) 1 mg/mL infusion 1-10 mg/hr (1-10 mL/hr), intravenous, Continuous, Starting on Thu11/05/24 at 1145, GOAL EFFECT: Target RASS goal INITIAL RATE: 2 mg/hr USUAL DOSE RANGE: 1 - 10 mg/hr TITRATION DOSE: 1 mg/hr (give bolus with each rate increase) TITRATION FREQUENCY: 15 mins CONTACT PRESCRIBER: -If RASS goal NOT 11/05/2024 11/07/19 aborted acetaminophen (TYLENOL) tablet 325 mg 325 mg, oral, Every 6 hours PRN, mild pain, Starting on Thu11/15/24 at 0957, For 1 dose 11/05/2024 11/06/19 active bumetanide (BUMEX) injection 4 mg 4 mg, intravenous, Daily, First dose (after last modification) on Thu11/08/24 at 0900, On hold since Thu11/12/2024 at 1046 until manually unheld 11/04/2024 11/16/19 aborted multivitamin minerals-iron (THERA-M) 1 tablet 1 tablet (1 each), oral, Daily, First dose on Thu11/02/24 at 1000 11/02/2024 active levETIRAcetam (KEPPRA) injection 500 mg 500 mg, intravenous, Administer over 5 Minutes, 2 times daily, First dose on Thu11/01/24 at 0900, IV push over 5 minutes for doses up to 1500 mg. 11/01/2024 11/10/19 aborted naloxone (NARCAN) injection 0.4 mg 0.4 mg, intravenous, Once, On Thu11/01/24 at 1345, For 1 dose 11/01/2024 11/02/19 completed atorvastatin (LIPITOR) 80 mg tablet Take 1 tablet (80 mg total) by mouth at bedtime. 11/01/2024 active gabapentin (NEURONTIN) capsule 600 mg 600 mg, oral, Every 8 hours scheduled, First dose (after last modification) on Kina 11/10/24 at 1345 10/31/2024 11/11/19 active mupirocin (BACTROBAN) 2 % ointment Each Nostril, 2 times daily, First dose on Thu10/31/24 at 0900, For 10 doses, [place] decolonization protocol, continue for a total of 10 doses or until transfer out of ICU if sooner. , Indications: methicillin-resista nt S. aureus nasal colonization 10/31/2024 11/06/19 completed aspirin chewable tablet 81 mg 81 mg, oral, Daily, First dose on Thu10/31/24 at 1430, On hold since Thu11/11/2024 at 0130 until manually unheld 10/31/2024 active levETIRAcetam (KEPPRA) injection 1,000 mg 1,000 mg, intravenous, Administer over 5 Minutes, Once, On Thu10/31/24 at 1945, For 1 dose, IV push over 5 minutes for doses up to 1500 mg. 10/31/2024 active sodium chloride 0.9 % flush 10 mL 10 mL, intravenous, Once, On Thu11/11/24 at 0215, For 1 dose 10/30/2024 11/12/19 completed sodium chloride 0.9 % intravenous solution 50 mL 50 mL, intravenous, Once in imaging, Starting on Thu11/11/24 at 0154, For 1 dose 10/30/2024 11/12/19 completed pantoprazole (PROTONIX) injection 40 mg 40 mg, intravenous, Administer over 2 Minutes, Every 24 hours, First dose on Thu10/30/24 at 0800, Pantroprazole - IV push: Reconstitute powder for injection with 10 mL NS; final concentration: 4 mg/mL., Indication for IV Push Pantoprazole? Stress Ulcer Prophylaxis for patients with STRICT NPO status 10/30/2024 11/10/19 aborted iopamidoL (ISOVUE-370) 370 mg iodine /mL (76 %) injection 40 mL 40 mL, intravenous, Once in imaging, Starting on Thu10/30/24 at 0707, For 1 dose 10/30/2024 10/31/19 completed iopamidoL (ISOVUE-370) 370 mg iodine /mL (76 %) injection 80 mL 80 mL, intravenous, Once in imaging, Starting on Thu10/30/24 at 0705, For 1 dose 10/30/2024 10/31/19 completed heparin (UFH) injection 5,000 Units 5,000 Units, subcutaneous, Every 8 hours scheduled, First dose on Thu10/30/24 at 1400, Enter Indication for use of heparin (UFH) instead of enoxaparin (LOVENOX): (free text): Timing of procedures, UFH has a shorter half-life, Indication: VTE Prophylaxis, Indications: Prophylaxis of Venous Thromboemb 10/30/2024 active ipratropium-albutero L (DUONEB) 0.5-2.5 mg/3 mL nebulizer solution 3 mL 3 mL, nebulization, Every 2 hours PRN, wheezing, Starting on Thu11/07/24 at 1008 10/29/2024 11/13/19 active potassium chloride 20 mEq/100 mL IVPB (premix) 20 mEq 20 mEq, intravenous, at 100 mL/hr, Administer over 1 Hours, Every 1 hour, First dose (after last reorder) on Thu11/09/24 at 0600, For 2 doses, For central line administration only. 10/29/2024 11/10/19 completed diazePAM (VALIUM) injection 5 mg 5 mg, intravenous, Every 12 hours, First dose (after last modification) on 10/29/24 at 0845, Indications: sedation in intubated patient 10/29/2024 11/09/19 aborted furosemide (LASIX) injection 40 mg 40 mg, intravenous, BID Diuretic, First dose (after last modification) on Thu11/04/24 at 0900 10/29/2024 11/05/19 aborted calcium gluconate 2 gram/100 mL IVPB (premix) 2 g 2 g, intravenous, at 100 mL/hr, Administer over 60 Minutes, Once, On Tu11/01/24 at 1530, For 1 dose 10/29/2024 11/02/19 completed fentaNYL (PF) (SUBLIMAZE) 50 mcg/mL infusion 25-300 mcg/hr (0.5-6 mL/hr), intravenous, Continuous, Starting on 10/29/24 at 0900, *If the patient FAILS the SAT, the RN will restart previously ordered sedative at one-half of the dose given prior to beginning the SAT* GOAL EFFECT: -First titrate to achieve pain score LESS than 3 - 10/29/2024 11/02/19 aborted albumin human 25 % infusion 50 g 50 g, intravenous, Once, On 10/29/24 at 1530, For 1 dose, Do not exceed 1 mL/minute in patients with normal plasma volume; 3 mL/minute in patients with hypoproteinemia., Indications: hypovolemic shock 10/29/2024 10/30/19 completed sodium bicarbonate injection 50 mEq 50 mEq, intravenous, Once, On Thu10/28/24 at 2015, For 1 dose 10/29/2024 10/29/19 completed cefepime (MAXIPIME) 2 g in sterile water 20 mL IV syringe 2 g, intravenous, Administer over 5 Minutes, Every 12 hours, First dose on Kina 11/10/24 at 0945, For 7 days, Indication: Other, Specify: increased wbc count 10/28/2024 11/12/19 aborted chlorhexidine (PERIDEX) 0.12 % solution 15 mL 15 mL, Mouth/Throat, 2 times daily, First dose on Thu10/28/24 at 1600 10/28/2024 11/09/19 aborted midazolam (VERSED) injection 1 mg 1 mg, intravenous, Every 1 hour PRN, for agitation, for RASS GREATER than target RASS goal range, Starting on Thu10/28/24 at 1637, Give slow IV push. 10/28/2024 11/09/19 aborted acetaminophen (TYLENOL) tablet 650 mg 650 mg, oral, Every 6 hours PRN, mild pain, moderate pain, Starting on [place] 11/10/24 at 1323 10/28/2024 11/06/19 active magnesium sulfate 2 gram/50 mL (4 %) IVPB 2 g 2 g, intravenous, at 25 mL/hr, Administer over 2 Hours, Once, On Thu11/04/24 at 1815, For 1 dose 10/28/2024 11/06/19 completed furosemide (LASIX) injection 20 mg 20 mg, intravenous, Once, On Thu10/31/24 at 1915, For 1 dose 10/28/2024 11/01/19 completed midazolam (VERSED) injection 2 mg 2 mg, intravenous, Once, On Thu10/28/24 at 1300, For 1 dose 10/28/2024 10/29/19 completed cholecalciferol (VITAMIN D-3) 1,250 mcg (50,000 unit) capsule Take 1 capsule (50,000 Units total) by mouth 1 (one) time per week. 10/24/2024 suspended diazePAM (VALIUM) 5 mg tablet Take 0.5 tablets (2.5 mg total) by mouth daily. Max Daily Amount: 2.5 mg 10/24/2024 suspended gabapentin (NEURONTIN) 600 mg tablet Take 1 tablet (600 mg total) by mouth 3 times daily. 10/24/2024 suspended omeprazole (PriLOSEC) [address] capsule Take 1 capsule (20 mg total) by mouth 1 (one) time each day. 10/24/2024 suspended Ventolin HFA 90 mcg/actuation inhaler Inhale 1 puff by mouth every 6 (six) hours if needed for wheezing or shortness of breath. 01/27/2017 suspended traZODone (DESYREL) 100 mg tablet Take 1 tablet (100 mg total) by mouth at bedtime. 01/03/2017 suspended amitriptyline (ELAVIL) 100 mg tablet Take 1 tablet (100 mg total) by mouth 1 (one) time each day. suspended oxyCODONE (ROXICODONE) 15 mg immediate release tablet Take 1 tablet (15 mg total) by mouth every 6 (six) hours if needed. Max Daily Amount: 60 mg suspende d Problems Problem Status Onset Date Problem Type Date of Resoluti on Source Subarachnoid hemorrhage ([facility] [place] V24, [facility] V28) active 2024-11-14 ProblemAct [facility] Ischemic stroke ([facility] V24, [facility] [place] V28) active 2024-11-14 ProblemAct [facility] Acute on chronic combined systolic and diastolic CHF (congestive heart failure) ([facility] V24, [facility] V28) active 2024-11-14 ProblemAct [facility] Asthma active 2024-11-14 ProblemAct [facility] AN Acute kidney injury (JOHNNIE) with acute tubular necrosis (ATN) ([facility] [place] V24) active 2024-11-14 ProblemAct [facility] Mitral and aortic insufficiency active 2024-11-05 ProblemAct [facility] Aspiration pneumonia ([facility] [place] [place] V24, [facility] [place] V28) active 2024-11-14 ProblemAct [facility] Severe malnutrition ([facility] [place] V24) active 2024-11-05 ProblemAct [facility] COPD (chronic obstructive pulmonary disease) ([facility] [place] V24, [facility] V28) active 2024-11-14 ProblemAct [facility] Seizures ([facility] V24, [facility] V28) active 2024-11-14 ProblemAct [facility] Acute hypoxic respiratory failure ([facility] V24, [facility] V28) active 2024-10-28 ProblemAct [facility] Encounters Encounter Type Encounter Reason Primary Diagnosis Location Date Inpatient [facility] [place] 10/31/2024 Inpatient Pulmonary Edema Acute respirator y failure with hypoxia ([facility] V24, [facility] V28) [facility] [place] 10/28/2024 Ambulatory Respiratory Failure Respiratory Failure H [facility] 10/28/2024 Care Team Organization Name Specialty Phone Email Start Date End Da te [facility] JAMILA [facility] 10/29/2024 11/27/2024 [facility] SKYLAR MARINO Primary Care 10/29/2024 [facility] 10/29/2024 [facility] SKYLAR MARINO Primary Care 10/29/2024 [facility] SKYLAR MARINO Primary Care 10/28/2024
--- OUTSIDE RECORDS SUMMARY | 2024-11-29 11:12 | XMS_ITS | Clinical Summary ---
Author Organization [facility] Address [address] [place] [address] Phone Care Team Providers Care Sub Plant Manager Name Role Phone Evita Ramos NP Primary Care Provider [phone] Allergies No known active allergies Medications Ventolin HFA 90 mcg/actuation inhaler Inhale 1 puff by mouth every 6 (six) hours if needed for wheezing or shortness of breath. 7 Active cholecalciferol (VITAMIN D-3) 1,250 mcg (50,000 unit) capsule Take 1 capsule (50,000 Units total) by mouth 1 (one) time per week. 5 10/25/19 26 Active gabapentin (NEURONTIN) 600 mg tablet Take 1 tablet (600 mg total) by mouth 3 times daily. 5 02/22/20 25 Active omeprazole (PriLOSEC) [address] capsule Take 1 capsule (20 mg total) by mouth 1 (one) time each day. 5 Active oxyCODONE (ROXICODONE) 15 mg immediate release tablet Take 1 tablet (15 mg total) by mouth every 6 (six) hours if needed. Max Daily Amount: 60 mg Active levETIRAcetam (KEPPRA) 500 mg tablet Take 1 tablet (500 mg total) by mouth 2 (two) times a day. 60 each 11 11/15/2024 3:00 PM EDT 5 11/16/19 26 Active atorvastatin (LIPITOR) 80 mg tablet Take 1 tablet (80 mg total) by mouth at bedtime. 30 each 11 11/15/2024 3:00 PM EDT 5 11/16/19 26 Active aspirin 81 mg chewable tablet Chew 1 tablet (81 mg total) 1 (one) time each day. 30 each 11/15/2024 3:00 PM EDT 5 11/21/19 26 Active multivitamin minerals-iron (THERA-M) 9 mg iron-400 mcg tablet Take 1 tablet by mouth 1 (one) time each day. 30 tablet 5 Active diazePAM (VALIUM) 5 mg tabletIndicatio ns:Seizures ([facility] V24, [facility] V28) Take 1 tablet (5 mg total) by mouth every 12 (twelve) hours. Max Daily Amount: 10 mg 60 each 11/15/2024 3:00 PM EDT 5 12/16/19 25 Active amitriptyline (ELAVIL) 100 mg tablet Take 1 tablet (100 mg total) by mouth 1 (one) time each day. 11/16/19 25 Discontinu ed(Stop Taking at Discharge) diazePAM (VALIUM) 5 mg tablet Take 0.5 tablets (2.5 mg total) by mouth daily. Max Daily Amount: 2.5 mg 5 11/16/19 25 Discontinu ed(Stop Taking at Discharge) traZODone (DESYREL) 100 mg tablet Take 1 tablet (100 mg total) by mouth at bedtime. 7 11/16/19 25 Discontinu ed(Stop Taking at Discharge) Active Problems Problem Noted Date Diagnosed Date COPD (chronic obstructive pu lmonary disease) ([facility] V24, [facility] V28) 11/14/2024 Asthma 11/14/2024 Acute on chronic combined sy stolic and diastolic CHF (congestive heart failure) ([facility] V24, [facility] V28) 11/14/2024 Subarachnoid hemorrhage ([facility] V24, [facility] V2 8) 11/14/2024 Ischemic stroke ([facility] V24, [facility] V28) 11/14 Seizures ([facility] V24, [facility] V28) 11/14/2024 Aspiration pneumonia ([facility] V24, [facility] V28) 11/14/2024 Acute kidney injury (JOHNNIE) wi th acute tubular necrosis (ATN) ([facility] V24) 11/14/2024 Severe malnutrition ([facility] V24) 11/05/2024 Mitral and aortic insufficiency 11/05/2024 Acute hypoxic respiratory fa ilure ([facility] V24, [facility] V28) 10/28/2024 Encounters Date Type Department Care Team Description 11/22/2024 Telephone [facility] Emergency [address] [place] [address] Luh Miller RN 10/31/2024 9:48 AM EDT - 10/31/2024 11:59 PM EDT Hospital Encounter [facility] Non-Invasive Cardiology [address] [place] [phone] Discharge Disposition: Home or Self Care 10/28/2024 3:25 PM EDT - 10/28/2024 4:55 PM EDT Surgery [facility] Cardiac Overlock Sleeve Setter [address] [place] [phone] Malachi Garcia DO Left heart cath / Coronary angiography 10/28/2024 12:04 PM EDT - 11/15/2024 3:19 PM EDT Hospital Encounter [facility] Med Card 9-[address] [place] [id number] Lenin Munoz MD Kaur, MD Yane Valles John R, MD Magge, MD Barbara Garcia Daniel A, MD Singh, Gagan D, MD Grover, Prashant, MD Udit, Chitreaka, MD Acute hypoxic respiratory failure ([facility] V24, [facility] V28) (Primary Dx); Non-STEMI (non-ST elevated myocardial infarction) ([facility] V24, [facility] V28); Mitral valve insufficiency, unspecified etiology; Aortic valve insufficiency, etiology of cardiac valve disease unspecified; Acute systolic congestive heart failure ([facility] V24, [facility] V28); Cardiomyopathy, unspecified type ([facility] V24, [facility] V28); Mitral and aortic insufficiency; Seizures ([facility] V24, [facility] V28) Discharge Disposition: Home-Health Care [facility] 10/27/2024 10:45 PM EDT - 10/28/2024 11:25 AM EDT Emergency [facility] Emergency [address] [place] [id number] Christian Hilton MD Ziebro, John, MD Acute respiratory failure with hypoxia ([facility] V24, [facility] V28) (Primary Dx); Flash pulmonary edema ([facility] V24, [facility] V28); Pleural effusion; Hypokalemia; NSTEMI (non-ST elevated myocardial infarction) ([facility] V24, [facility] V28) Discharge Disposition: Short Term Hospital from Last 3 Months Surgical History Surgery Date Site/Laterality Comments SHOULDER SURGERY PROCEDURE:SHOULDER SURGERY HIP SURGERY PROCEDURE:HIP SURGERY Medical History Medical History Date Comments Asthma DX:Asthma Family History Medical History Relation Name Comments Cancer Brother Diabetes Brother Cancer Father Cancer Mother Diabetes Mother Diabetes Sister Relation Name Status Comments Brother Father Mother Sister Social History Tobacco Use Types Packs/Day Years Used Date Smoking Tobacco: Never Assessed Food Risk Answer Date Recorded Within the past 12 months we worried whether our food would run out before we got money to buy more. Unable to respond 025 Within the past 12 months th e food we bought just didn't last and we didn't have money to get more. Unable to respond 10/12 Comments Unknown Sex and Gender Information Value Date Recorded Sex Assigned at Not on file Legal Sex Female 12:40 PM EST Gender Identity Not on file Sexual Orientation Not on file Obstetrics History Last Filed Vital Signs Vital Sign Reading Time Taken Comments Blood Pressure 121/60 11/15/2024 12:45 PM EDT Pulse 110 11/15/2024 12:45 PM EDT Temperature 36.1 C (97 F) 11/15/2024 12:45 PM EDT Respiratory Rate 11 11/15/2024 12:45 PM EDT Oxygen Saturation 96% 11/15/2024 9:26 AM EDT Inhaled Oxygen Concentration - - Weight 38.3 kg (84 lb 7 oz) 11/14/2024 5:16 AM E DT Height 165 cm (5' 4.96 ) 11/11/2024 2:00 PM EDT Body Mass Index 14.07 11/11/2024 2:00 PM EDT Plan of Treatment Upcoming Encounters Date Type Department Care Team (Late st Contact Info) Description 12/05/2024 10:40 AM EDT Office Visit Neurostroke - [facility] [address] [place] [address] Proxee, TISHA Montez [address] [place] [address] Health Maintenance Due Date Last Done Comments Breast Cancer Screening 1965 Hepatitis A Vaccines (1 of 2 - Risk 2-dose series) 11/22/1982 Cervical Cancer Screening: Pap Smear 11/22/1984 Zoster Vaccines (2 of 2) 02/25/2018 12/31/2017 Hepatitis B Vaccines (2 of 3 - 19+ 3-dose series) 09/07/2018 08/10/2018, 06/15/2018 Colorectal Cancer Screening: Colonoscopy 03/26/2022 Medicare Annual Wellness Visit 03/26/2022 RSV Immunization Adult Patients (1 - Risk 60-74 years 1-dose series) 2023 COVID-19 Vaccine ( season) 2023 10/21/2021, 02/02/2021 Depression Screening 04/13/2024 Influenza Vaccine (#1) 2024 , 03/16/2023, 01/13/2022, Additional history exists Lung Cancer Screening (Low Dose CT) 02/07/2025 02/08/2024, 02/08/2024, 11/17/2023 Social Influencers of Health Screening 10/31/2025 10/31/2024 Hypertension/CHF/CAD Annual BMP Blood Test 11/14/2025 11/14/2024, 11/14/2024, 11/13/2024, Additional history exists Cholesterol Screening (Lipid Panel) 10/28/2029 10/28/2024 DTaP,Tdap,and Td Vaccines (5 - Td or Tdap) 01/14/2032 01/13/2022, 10/19/2018, 01/27/2017, Additional history exists Pneumococcal Vaccine: 50+ Years Completed 10/12/2023, 05/05/2014 HIV Screening Completed 11/09/2024, 07/25/2024 Hepatitis C Screening Completed 11/09/2024, 025 HIB Vaccines Aged Out No longer eligi ble based on patient's age to complete this topic HPV Vaccines Aged Out No longer eligi ble based on patient's age to complete this topic IPV Vaccines Aged Out No longer eligi ble based on patient's age to complete this topic MMR Vaccines Aged Out No longer eligi ble based on patient's age to complete this topic Meningococcal ACWY Vaccine Aged Out N o longer eligible based on patient's age to complete this topic Meningococcal B Vaccine Aged Out No l onger eligible based on patient's age to complete this topic RSV Immunization Patients Under 20 months Aged Out No longer eligible based on patient's age to complete this topic Varicella Vaccines Aged Out No longer eligible based on patient's age to complete this topic Medical Devices Implanted Type Area Vine Pruner Device Identifier Shelf Expiration Date Model / Serial / Lot System Perclose Prostyle Suture Medicated - [id number] Implanted:Qt y: 1 on 10/28/2024 by Malachi Garcia DO at [facility] Vascular Closure Devices N/A: [employer] [id number] 08/10/2026 [id number] / / [id number] Procedures Procedure Name Priority Date/Time Associated Diagnosis Comments POCT GLUCOSE BLOOD Routine 11/15/2024 8: 33 AM EDT PHOSPHORUS Timed 11/15/2024 4:07 AM EDT MAGNESIUM Timed 11/15/2024 4:07 AM EDT COMPLETE BLOOD COUNT Timed 11/15/2024 4:07 AM EDT POCT GLUCOSE BLOOD Routine 11/14/2024 8: 02 PM EDT POCT GLUCOSE BLOOD Routine 11/14/2024 5: 55 PM EDT BASIC METABOLIC PANEL Routine 11/14/2024 4:16 PM EDT POCT GLUCOSE BLOOD Routine 11/14/2024 8: 58 AM EDT PHOSPHORUS Timed 11/14/2024 6:49 AM EDT MAGNESIUM Timed 11/14/2024 6:49 AM EDT COMPLETE BLOOD COUNT Timed 11/14/2024 6:49 AM EDT CALCIUM, IONIZED Timed 11/14/2024 6:49 AM EDT BASIC METABOLIC PANEL Timed 11/14/2024 6:49 AM EDT POCT GLUCOSE BLOOD Routine 11/14/2024 5: 56 AM EDT POCT GLUCOSE BLOOD Routine 11/13/2024 11 :40 PM EDT POCT GLUCOSE BLOOD Routine 11/13/2024 9: 38 PM EDT BASIC METABOLIC PANEL Routine 11/13/2024 4:49 PM EDT MAGNESIUM Routine 11/13/2024 4:49 PM EDT POCT GLUCOSE BLOOD Routine 11/13/2024 4: 48 PM EDT PHOSPHORUS Timed 11/13/2024 5:29 AM EDT MAGNESIUM Timed 11/13/2024 5:29 AM EDT COMPLETE BLOOD COUNT Timed 11/13/2024 5:29 AM EDT CALCIUM, IONIZED Timed 11/13/2024 5:29 AM EDT BASIC METABOLIC PANEL Timed 11/13/2024 5:29 AM EDT POCT GLUCOSE BLOOD Routine 11/12/2024 5: 45 PM EDT BASIC METABOLIC PANEL Routine 11/12/2024 3:46 PM EDT MAGNESIUM Routine 11/12/2024 3:46 PM EDT POCT GLUCOSE BLOOD Routine 11/12/2024 12 :[address] HEAD WO CONTRAST Routine 11/12/2024 5 :26 AM EDT PHOSPHORUS Timed 11/12/2024 4:25 AM EDT MAGNESIUM Timed 11/12/2024 4:25 AM EDT COMPLETE BLOOD COUNT Timed 11/12/2024 4:25 AM EDT CALCIUM, IONIZED Timed 11/12/2024 4:25 AM EDT BASIC METABOLIC PANEL Timed 11/12/2024 4:25 AM EDT POCT GLUCOSE BLOOD Routine 11/11/2024 5: 21 PM EDT BASIC METABOLIC PANEL Routine 11/11/2024 4:23 PM EDT MAGNESIUM Routine 11/11/2024 4:23 PM EDT TRANSTHORACIC ECHOCARDIOGRAM (TTE) LIMITED WITH CONTRAST Routine 11/11/2024 2:50 PM EDT Mitral and aortic insufficiency CT HEAD WO CONTRAST Routine 11/11/2024 1 2:47 PM EDT POCT GLUCOSE BLOOD Routine 11/11/2024 12 :[address] HEAD WO CONTRAST STAT 11/11/2024 8 :05 AM EDT POCT GLUCOSE BLOOD Routine 11/11/2024 6: 26 AM EDT CALCIUM, IONIZED Timed 11/11/2024 4:41 AM EDT PHOSPHORUS Timed 11/11/2024 4:40 AM EDT MAGNESIUM Timed 11/11/2024 4:40 AM EDT COMPLETE BLOOD COUNT Timed 11/11/2024 4:40 AM EDT BASIC METABOLIC PANEL Timed 11/11/2024 4:[address] ANGIO HEAD/NECK STROKE WO AND/OR W CONTRAST STAT 11/11/2024 2:[address] CERVICAL SPINE WO CONTRAST STAT 11/11/2024 12:[address] HEAD WO CONTRAST STAT 11/11/2024 1 2:29 AM EDT POCT GLUCOSE BLOOD Routine 11/11/2024 12 :01 AM EDT POCT GLUCOSE BLOOD Routine 11/10/2024 6: 05 PM EDT BASIC METABOLIC PANEL Routine 11/10/2024 6:02 PM EDT MAGNESIUM Routine 11/10/2024 6:02 PM EDT POCT GLUCOSE BLOOD Routine 11/10/2024 11 :47 AM EDT POCT GLUCOSE BLOOD Routine 11/10/2024 6: 50 AM EDT PHOSPHORUS Timed 11/10/2024 3:59 AM EDT MAGNESIUM Timed 11/10/2024 3:59 AM EDT COMPLETE BLOOD COUNT Timed 11/10/2024 3:59 AM EDT CALCIUM, IONIZED Timed 11/10/2024 3:59 AM EDT BASIC METABOLIC PANEL Timed 11/10/2024 3:59 AM EDT POCT GLUCOSE BLOOD Routine 11/09/2024 11 :35 PM EDT OXYGEN THERAPY, ADULT Routine 11/09/2024 8:[address] CHEST/ABDOMEN/PELVIS WO CONTRAST Routine 11/09/2024 4:48 PM EDT BASIC METABOLIC PANEL Routine 11/09/2024 4:14 PM EDT MAGNESIUM Routine 11/09/2024 4:14 PM EDT POCT GLUCOSE BLOOD Routine 11/09/2024 4: 02 PM EDT ECG 12-LEAD STAT 11/09/2024 11:41 AM EDT CULTURE BLOOD STAT 11/09/2024 11:19 AM EDT POCT GLUCOSE BLOOD Routine 11/09/2024 11 :15 AM EDT HEPATITIS PANEL, ACUTE Routine 11:13 AM EDT HIV 1, 2 ANTIBODY, P24 ANTIGEN WITH REFLEX TO DIFFERENTIATION Routine 11/09/2024 11:13 AM EDT CULTURE BLOOD STAT 11/09/2024 11:13 AM EDT BOB URINE CULTURE TUBE Routine 11/10/19 10:42 AM EDT URINALYSIS WITH REFLEX MICROSCOPIC AND CULTURE Routine 11/09/2024 10:42 AM EDT URINALYSIS WITH REFLEX MICROSCOPIC AND CULTURE Routine 11/09/2024 10:42 AM EDT CULTURE URINE Routine 11/09/2024 10:42 AM EDT OXYGEN THERAPY, ADULT Routine 11/09/2024 8:02 AM EDT HEPATIC FUNCTION PANEL Routine 3:43 AM EDT PHOSPHORUS Timed 11/09/2024 3:43 AM EDT MAGNESIUM Timed 11/09/2024 3:43 AM EDT COMPLETE BLOOD COUNT Timed 11/09/2024 3:43 AM EDT CALCIUM, IONIZED Timed 11/09/2024 3:43 AM EDT BASIC METABOLIC PANEL Timed 11/09/2024 3:43 AM EDT OXYGEN THERAPY, ADULT Routine 11/08/2024 8:00 PM EDT POCT GLUCOSE BLOOD Routine 11/08/2024 5: 19 PM EDT BASIC METABOLIC PANEL Routine 11/08/2024 5:16 PM EDT MAGNESIUM Routine 11/08/2024 5:16 PM EDT OXYGEN THERAPY, ADULT Routine 11/08/2024 1:05 PM EDT OXYGEN THERAPY, ADULT Routine 11/08/2024 1:05 PM EDT SENIOR CLIMATE ADVISOR FIBEROPTIC ENDOSCOPIC SWALLOW EVALUATION Routine 11/08/2024 12:40 PM EDT PREALBUMIN Routine 11/08/2024 11:37 AM EDT POCT GLUCOSE BLOOD Routine 11/08/2024 11 :36 AM EDT OXYGEN THERAPY, ADULT Routine 11/08/2024 6:23 AM EDT ARTERIAL BLOOD GAS Timed 11/08/2024 3: 52 AM EDT PHOSPHORUS Timed 11/08/2024 3:52 AM EDT MAGNESIUM Timed 11/08/2024 3:52 AM EDT COMPLETE BLOOD COUNT Timed 11/08/2024 3:52 AM EDT CALCIUM, IONIZED Timed 11/08/2024 3:52 AM EDT BASIC METABOLIC PANEL Timed 11/08/2024 3:52 AM EDT ARTERIAL BLOOD GAS Timed 11/07/2024 3: 52 PM EDT BASIC METABOLIC PANEL Routine 11/07/2024 3:52 PM EDT MAGNESIUM Routine 11/07/2024 3:52 PM EDT POCT BLOOD GAS, ARTERIAL Routine 11/07/2024 2:40 PM EDT POCT GLUCOSE BLOOD Routine 11/07/2024 2: 37 PM EDT OXYGEN THERAPY, ADULT Routine 11/07/2024 1:56 PM EDT OXYGEN THERAPY, ADULT Routine 11/07/2024 1:56 PM EDT EXTUBATION Routine 11/07/2024 1:56 PM EDT POCT BLOOD GAS, ARTERIAL Routine 11/07/2024 9:14 AM EDT POCT GLUCOSE BLOOD Routine 11/07/2024 8: 22 AM EDT VENTILATOR, ADULT Routine 11/07/2024 6:3 0 AM EDT XR CHEST 1 VIEW STAT 11/07/2024 6:02 AM EDT ARTERIAL BLOOD GAS Timed 11/07/2024 3: 11 AM EDT PHOSPHORUS Timed 11/07/2024 3:11 AM EDT MAGNESIUM Timed 11/07/2024 3:11 AM EDT COMPLETE BLOOD COUNT Timed 11/07/2024 3:11 AM EDT CALCIUM, IONIZED Timed 11/07/2024 3:11 AM EDT BASIC METABOLIC PANEL Timed 11/07/2024 3:11 AM EDT POCT GLUCOSE BLOOD Routine 11/06/2024 11 :51 PM EDT CULTURE RESPIRATORY WITH GRAM STAIN Routine 11/06/2024 10:51 PM EDT ARTERIAL BLOOD GAS Timed 11/06/2024 5: 12 PM EDT BASIC METABOLIC PANEL Routine 11/06/2024 5:12 PM EDT MAGNESIUM Routine 11/06/2024 5:12 PM EDT POCT GLUCOSE BLOOD Routine 11/06/2024 12 :53 PM EDT TRIGLYCERIDES Timed 11/06/2024 9:14 AM EDT BASIC METABOLIC PANEL Routine 11/06/2024 9:14 AM EDT MAGNESIUM Routine 11/06/2024 9:14 AM EDT ECG 12-LEAD Routine 11/06/2024 7:17 AM EDT XR CHEST 1 VIEW Routine 11/06/2024 6:51 AM EDT VENTILATOR, ADULT Routine 11/06/2024 3:5 0 AM EDT POCT GLUCOSE BLOOD Routine 11/06/2024 3: 23 AM EDT PHOSPHORUS Timed 11/06/2024 3:21 AM EDT MAGNESIUM Timed 11/06/2024 3:21 AM EDT COMPLETE BLOOD COUNT Timed 11/06/2024 3:21 AM EDT CALCIUM, IONIZED Timed 11/06/2024 3:21 AM EDT BASIC METABOLIC PANEL Timed 11/06/2024 3:21 AM EDT ARTERIAL BLOOD GAS Timed 11/06/2024 3: 21 AM EDT POCT GLUCOSE BLOOD Routine 11/05/2024 9: 40 PM EDT ARTERIAL BLOOD GAS Timed 11/05/2024 7: 20 PM EDT ARTERIAL BLOOD GAS Timed 11/05/2024 5: 57 AM EDT POCT GLUCOSE BLOOD Routine 11/05/2024 5: 54 AM EDT PHOSPHORUS Timed 11/05/2024 3:28 AM EDT MAGNESIUM Timed 11/05/2024 3:28 AM EDT COMPLETE BLOOD COUNT Timed 11/05/2024 3:28 AM EDT CALCIUM, IONIZED Timed 11/05/2024 3:28 AM EDT BASIC METABOLIC PANEL Timed 11/05/2024 3:28 AM EDT POCT GLUCOSE BLOOD Routine 11/05/2024 12 :24 AM EDT ARTERIAL BLOOD GAS Timed 11/05/2024 12 :22 AM EDT POCT GLUCOSE BLOOD Routine 11/04/2024 11 :06 PM EDT VENTILATOR, ADULT Routine 11/04/2024 8:0 0 PM EDT BASIC METABOLIC PANEL Routine 11/04/2024 4:43 PM EDT MAGNESIUM Routine 11/04/2024 4:43 PM EDT POCT GLUCOSE BLOOD Routine 11/04/2024 1: 38 PM EDT XR CHEST 1 VIEW STAT 11/04/2024 9:10 AM EDT VENTILATOR, ADULT Routine 11/04/2024 8:0 2 AM EDT POCT GLUCOSE BLOOD Routine 11/04/2024 7: 03 AM EDT ARTERIAL BLOOD GAS Timed 11/04/2024 7: 00 AM EDT PHOSPHORUS Timed 11/04/2024 4:08 AM EDT MAGNESIUM Timed 11/04/2024 4:08 AM EDT COMPLETE BLOOD COUNT Timed 11/04/2024 4:08 AM EDT CALCIUM, IONIZED Timed 11/04/2024 4:08 AM EDT BASIC METABOLIC PANEL Timed 11/04/2024 4:08 AM EDT POCT GLUCOSE BLOOD Routine 11/04/2024 2: 35 AM EDT VENTILATOR, ADULT Routine 11/03/2024 8:0 0 PM EDT HEMOGLOBIN AND HEMATOCRIT Timed 11/03/2024 7:30 PM EDT POCT GLUCOSE BLOOD Routine 11/03/2024 3: 28 PM EDT TRANSFUSE RED BLOOD CELLS Routine 11/03/2024 11:00 AM EDT ARTERIAL BLOOD GAS Routine 11/03/2024 9: 57 AM EDT VENTILATOR, ADULT Routine 11/03/2024 8:0 2 AM EDT TYPE AND SCREEN Routine 11/03/2024 6:23 AM EDT PREPARE RBC Routine 11/03/2024 6:06 AM EDT POCT GLUCOSE BLOOD Routine 11/03/2024 5: 45 AM EDT PHOSPHORUS Timed 11/03/2024 4:17 AM EDT MAGNESIUM Timed 11/03/2024 4:17 AM EDT COMPLETE BLOOD COUNT Timed 11/03/2024 4:17 AM EDT CALCIUM, IONIZED Timed 11/03/2024 4:17 AM EDT BASIC METABOLIC PANEL Timed 11/03/2024 4:17 AM EDT ACTIVATED PARTIAL THROMBOPLASTIN TIME STAT 11/03/2024 4:17 AM EDT PROTHROMBIN TIME WITH INR Routine 11/03/2024 4:17 AM EDT POCT GLUCOSE BLOOD Routine 11/03/2024 12 :18 AM EDT VENTILATOR, ADULT Routine 11/02/2024 8:0 0 PM EDT ARTERIAL BLOOD GAS Routine 11/02/2024 4: 07 PM EDT POCT GLUCOSE BLOOD Routine 11/02/2024 2: 19 PM EDT POCT GLUCOSE BLOOD Routine 11/02/2024 12 :05 PM EDT POCT GLUCOSE BLOOD Routine 11/02/2024 8: 28 AM EDT VENTILATOR, ADULT Routine 11/02/2024 8:0 2 AM EDT POCT GLUCOSE BLOOD Routine 11/02/2024 6: 14 AM EDT CONTINUOUS EEG Routine 11/02/2024 6:09 AM EDT VENTILATOR, ADULT Routine 11/02/2024 5:2 2 AM EDT VENTILATOR, ADULT Routine 11/02/2024 5: 22 AM EDT ARTERIAL BLOOD GAS Routine 11/02/2024 3: 48 AM EDT PHOSPHORUS Timed 11/02/2024 3:48 AM EDT MAGNESIUM Timed 11/02/2024 3:48 AM EDT COMPLETE BLOOD COUNT Timed 11/02/2024 3:48 AM EDT CALCIUM, IONIZED Timed 11/02/2024 3:48 AM EDT BASIC METABOLIC PANEL Timed 11/02/2024 3:48 AM EDT POCT GLUCOSE BLOOD Routine 11/02/2024 12 :29 AM EDT POCT GLUCOSE BLOOD Routine 11/01/2024 9: 29 PM EDT POCT GLUCOSE BLOOD Routine 11/01/2024 2: 03 PM EDT BASIC METABOLIC PANEL STAT 11/01/2024 1:57 PM EDT MAGNESIUM STAT 11/01/2024 1:57 PM EDT PHOSPHORUS STAT 11/01/2024 1:57 PM EDT CALCIUM, IONIZED STAT 11/01/2024 1:57 PM EDT POCT GLUCOSE BLOOD Routine 11/01/2024 9: 18 AM EDT CONTINUOUS EEG Routine 11/01/2024 6:19 AM EDT ARTERIAL BLOOD GAS Routine 11/01/2024 4: 00 AM EDT PHOSPHORUS Timed 11/01/2024 4:00 AM EDT MAGNESIUM Timed 11/01/2024 4:00 AM EDT COMPLETE BLOOD COUNT Timed 11/01/2024 4:00 AM EDT CALCIUM, IONIZED Timed 11/01/2024 4:00 AM EDT BASIC METABOLIC PANEL Timed 11/01/2024 4:00 AM EDT POCT GLUCOSE BLOOD Routine 11/01/2024 3: 58 AM EDT POCT GLUCOSE BLOOD Routine 11/01/2024 12 :56 AM EDT POCT GLUCOSE BLOOD Routine 10/31/2024 9: 28 PM EDT VENTILATOR, ADULT Routine 10/31/2024 8:0 0 PM EDT POCT GLUCOSE BLOOD Routine 10/31/2024 5: 05 PM EDT ARTERIAL BLOOD GAS Timed 10/31/2024 5: 01 PM EDT BASIC METABOLIC PANEL Routine 10/31/2024 5:00 PM EDT MAGNESIUM Routine 10/31/2024 5:00 PM EDT XR ABDOMEN 1 VIEW STAT 10/31/2024 12: 59 PM EDT XR CHEST 1 VIEW Routine 10/31/2024 12:59 PM EDT ARTERIAL BLOOD GAS Timed 10/31/2024 11 :49 AM EDT ZAMZAM COMPLETE W/COLOR FLOW AND SPECTRAL DOPPLER Routine 10/31/2024 11:34 AM EDT Acute hypoxic respiratory failure (CMS/HCC V24, CMS/HCC V28) ARTERIAL BLOOD GAS Timed 10/31/2024 8: 51 AM EDT POCT GLUCOSE BLOOD Routine 10/31/2024 8: 40 AM EDT VENTILATOR, ADULT Routine 10/31/2024 8:0 2 AM EDT PHOSPHORUS Timed 10/31/2024 4:50 AM EDT MAGNESIUM Timed 10/31/2024 4:50 AM EDT COMPLETE BLOOD COUNT Timed 10/31/2024 4:50 AM EDT CALCIUM, IONIZED Timed 10/31/2024 4:50 AM EDT BASIC METABOLIC PANEL Timed 10/31/2024 4:50 AM EDT ARTERIAL BLOOD GAS Timed 10/31/2024 4: 50 AM EDT POCT GLUCOSE BLOOD Routine 10/31/2024 4: 49 AM EDT POCT GLUCOSE BLOOD Routine 10/31/2024 1: 08 AM EDT POCT GLUCOSE BLOOD Routine 10/30/2024 8: 05 PM EDT MR BRAIN WO CONTRAST Routine 10/30/2024 6:37 PM EDT ROUTINE EEG Routine 10/30/2024 4:51 PM EDT ARTERIAL BLOOD GAS Timed 10/30/2024 4: 45 PM EDT POCT GLUCOSE BLOOD Routine 10/30/2024 3: 49 PM EDT MIXED VENOUS BLOOD GAS Timed 2:39 PM EDT TRIGLYCERIDES Timed 10/30/2024 12:53 PM EDT VENTILATOR, ADULT Routine 10/30/2024 12: 03 PM EDT VENTILATOR, ADULT Routine 10/30/2024 12: 03 PM EDT POCT GLUCOSE BLOOD Routine 10/30/2024 11 :10 AM EDT ARTERIAL BLOOD GAS Timed 10/30/2024 11 :08 AM EDT ECG 12-LEAD Routine 10/30/2024 10:01 AM EDT POCT GLUCOSE BLOOD Routine 10/30/2024 8: [address] CEREBRAL PERFUSION W CONTRAST STAT 10/30/2024 7:[address] ANGIO HEAD/NECK STROKE WO AND/OR W CONTRAST STAT 10/30/2024 7:[address] HEAD STROKE WO CONTRAST STAT 10/30/2024 7:12 AM EDT XR CHEST 1 VIEW Routine 10/30/2024 6:27 AM EDT OXYGEN THERAPY, ADULT Routine 10/30/2024 6:17 AM EDT OXYGEN THERAPY, ADULT Routine 10/30/2024 6:17 AM EDT OXYGEN THERAPY, ADULT Routine 10/30/2024 6:17 AM EDT MIXED VENOUS BLOOD GAS Timed 4:41 AM EDT ARTERIAL BLOOD GAS Timed 10/30/2024 4: 41 AM EDT COMPLETE BLOOD COUNT Timed 10/30/2024 4:41 AM EDT BASIC METABOLIC PANEL Timed 10/30/2024 4:41 AM EDT MAGNESIUM Timed 10/30/2024 4:41 AM EDT PHOSPHORUS Timed 10/30/2024 4:41 AM EDT CALCIUM, IONIZED Timed 10/30/2024 4:41 AM EDT POCT GLUCOSE BLOOD Routine 10/30/2024 4: 40 AM EDT POCT GLUCOSE BLOOD Routine 10/30/2024 12 :18 AM EDT POCT GLUCOSE BLOOD Routine 10/29/2024 6: 08 PM EDT ARTERIAL BLOOD GAS Timed 10/29/2024 6: 04 PM EDT BASIC METABOLIC PANEL Routine 10/29/2024 3:51 PM EDT MAGNESIUM Routine 10/29/2024 3:51 PM EDT MIXED VENOUS BLOOD GAS Timed 3:51 PM EDT POCT GLUCOSE BLOOD Routine 10/29/2024 12 :19 PM EDT ARTERIAL BLOOD GAS Timed 10/29/2024 12 :04 PM EDT VENTILATOR, ADULT Routine 10/29/2024 11: 40 AM EDT VENTILATOR, ADULT Routine 10/29/2024 11: 40 AM EDT MT CATHETERIZATION/CANNULA TION ARTERIAL SAMPLE/MONITORING/TRANS FUSION PERC Routine 10/29/2024 10:22 AM EDT Acute hypoxic respiratory failure (CMS/HCC V24, CMS/HCC V28) ARTERIAL BLOOD GAS Timed 10/29/2024 10 :15 AM EDT POCT GLUCOSE BLOOD Routine 10/29/2024 8: 30 AM EDT MIXED VENOUS BLOOD GAS Timed 8:24 AM EDT CULTURE RESPIRATORY WITH GRAM STAIN Routine 10/29/2024 8:10 AM EDT TROPONIN I HIGH SENSITIVITY Timed 10/29/2024 4:17 AM EDT PHOSPHORUS Routine 10/29/2024 4:17 AM EDT LACTATE, WITH REFLEX Timed 10/29/2024 4:17 AM EDT ARTERIAL BLOOD GAS Timed 10/29/2024 4: 17 AM EDT CALCIUM, IONIZED Timed 10/29/2024 4:17 AM EDT MAGNESIUM Timed 10/29/2024 4:17 AM EDT BASIC METABOLIC PANEL Timed 10/29/2024 4:17 AM EDT COMPLETE BLOOD COUNT Timed 10/29/2024 4:17 AM EDT POCT GLUCOSE BLOOD Routine 10/29/2024 4: 16 AM EDT MIXED VENOUS BLOOD GAS Routine 3:08 AM EDT POCT GLUCOSE BLOOD Routine 10/29/2024 1: 43 AM EDT TROPONIN I HIGH SENSITIVITY Timed 10/29/2024 12:39 AM EDT LACTATE, WITH REFLEX Timed 10/29/2024 12:39 AM EDT ARTERIAL BLOOD GAS Timed 10/29/2024 12 :38 AM EDT ECG ANNOTATED 10/29/2024 ECG ANNOTATED 10/29/2024 TROPONIN I HIGH SENSITIVITY Timed 10/28/2024 10:30 PM EDT TRIGLYCERIDES Timed 10/28/2024 10:30 PM EDT MT INSERTION NON-TUNNELED CENTRALLY INSERTED CENTRAL VENOUS CATH 5 YRS/> Routine 10/28/2024 9:20 PM EDT Non-STEMI (non-ST elevated myocardial infarction) (CMS/HCC V24, CMS/HCC V28) Acute hypoxic respiratory failure (CMS/HCC V24, CMS/HCC V28) MIXED VENOUS BLOOD GAS STAT 9:17 PM EDT POCT GLUCOSE BLOOD Routine 10/28/2024 9: 16 PM EDT ED INTUBATION Routine 10/28/2024 8:42 PM EDT LACTATE, WITH REFLEX Timed 10/28/2024 8:37 PM EDT XR CHEST 1 VIEW STAT 10/28/2024 7:41 PM EDT XR ABDOMEN 1 VIEW Routine 10/28/2024 7:4 0 PM EDT ARTERIAL BLOOD GAS Routine 10/28/2024 7: 18 PM EDT MT CATHETERIZATION/CANNULA TION ARTERIAL SAMPLE/MONITORING/TRANS FUSION PERC Routine 10/28/2024 6:03 PM EDT Acute hypoxic respiratory failure (CMS/HCC V24, CMS/HCC V28) VENTILATOR, ADULT Routine 10/28/2024 3:5 3 PM EDT RIGHT HEART CATH Routine 10/28/2024 3:37 PM EDT Non-STEMI (non-ST elevated myocardial infarction) (CMS/HCC V24, CMS/HCC V28) LEFT HEART CATH / CORONARY ANGIOGRAPHY Routine 10/28/2024 3:37 PM EDT Non-STEMI (non-ST elevated myocardial infarction) (CMS/HCC V24, CMS/HCC V28) HC INSERTION/REMOVAL/REPLA CEMENT CATH Routine 10/28/2024 1:33 PM EDT MT INSERTION NON-TUNNELED CENTRALLY INSERTED CENTRAL VENOUS CATH 5 YRS/> Routine 10/28/2024 1:33 PM EDT XR ABDOMEN 1 VIEW STAT 10/28/2024 1:2 8 PM EDT XR CHEST 1 VIEW STAT 10/28/2024 1:28 PM EDT VENTILATOR, ADULT Routine 10/28/2024 1:2 7 PM EDT TROPONIN I HIGH SENSITIVITY Timed 10/28/2024 1:11 PM EDT HEMOGLOBIN A1C Routine 10/28/2024 1:11 PM EDT LACTATE, WITH REFLEX STAT 10/28/2024 1:11 PM EDT BILIRUBIN DUPLICATE PROCEDURE TO ORDER Routine 10/28/2024 1:11 PM EDT CBC WITH AUTO DIFFERENTIAL STAT 10/28/2024 1:11 PM EDT ACTIVATED PARTIAL THROMBOPLASTIN TIME Routine 10/28/2024 1:11 PM EDT PROTHROMBIN TIME WITH INR Routine 10/28/2024 1:11 PM EDT LIPID PANEL WITH REFLEX TO DIRECT LDL Routine 10/28/2024 1:11 PM EDT PHOSPHORUS Routine 10/28/2024 1:11 PM EDT MAGNESIUM Routine 10/28/2024 1:11 PM EDT CALCIUM, IONIZED Routine 10/28/2024 1:11 PM EDT COMPREHENSIVE METABOLIC PANEL Routine 10/28/2024 1:11 PM EDT CBC AND DIFFERENTIAL STAT 10/28/2024 1:11 PM EDT ECG 12-LEAD STAT 10/28/2024 12:30 PM EDT MT CRITICAL CARE 30-74 MINUTES Routine 10/28/2024 11:25 AM EDT CULTURE BLOOD STAT 10/28/2024 10:22 AM EDT XR ABDOMEN 1 VIEW STAT 10/28/2024 10: 03 AM EDT XR CHEST 1 VIEW STAT 10/28/2024 10:02 AM EDT HEPARIN AND LOW MOLECULAR WEIGHT ANTI XA LEVEL STAT 10/28/2024 9:52 AM EDT CULTURE BLOOD STAT 10/28/2024 9:52 AM EDT TRANSTHORACIC ECHOCARDIOGRAM (TTE) COMPLETE W/ CONTRAST Routine 10/28/2024 9:06 AM EDT NSTEMI (non-ST elevated myocardial infarction) (CMS/HCC V24, CMS/HCC V28) ARTERIAL BLOOD GAS STAT 10/28/2024 8: 25 AM EDT ECG 12-LEAD STAT 10/28/2024 6:30 AM EDT LACTATE, WITH REFLEX STAT 10/28/2024 5:30 AM EDT TROPONIN I HIGH SENSITIVITY STAT 10/28/2024 5:30 AM EDT URINALYSIS WITH REFLEX MICROSCOPIC Routine 10/28/2024 5:21 AM EDT URINALYSIS WITH REFLEX MICROSCOPIC Routine 10/28/2024 5:[address] ANGIO CHEST WO AND/OR W CONTRAST STAT 10/28/2024 3:04 AM EDT Acute respiratory failure with hypoxia (CMS/HCC V24, CMS/HCC V28) CT HEAD WO CONTRAST STAT 10/28/2024 3 :04 AM EDT XR CHEST 1 VIEW STAT 10/28/2024 1:07 AM EDT DRUG ABUSE SCREEN 8A PANEL, URINE STAT 10/28/2024 12:25 AM EDT VENTILATOR, ADULT Routine 10/27/2024 11: 36 PM EDT ECG 12-LEAD STAT 10/27/2024 11:35 PM EDT MANUAL DIFFERENTIAL - SYSMEX WAM STAT 10/27/2024 11:35 PM EDT CBC WITH AUTO DIFFERENTIAL STAT 10/27/2024 11:35 PM EDT B-TYPE NATRIURETIC PEPTIDE STAT 10/27/2024 11:35 PM EDT MAGNESIUM STAT 10/27/2024 11:35 PM EDT CBC AND DIFFERENTIAL STAT 10/27/2024 11:35 PM EDT ACTIVATED PARTIAL THROMBOPLASTIN TIME STAT 10/27/2024 11:35 PM EDT PROTHROMBIN TIME WITH INR STAT 10/27/2024 11:35 PM EDT TROPONIN I HIGH SENSITIVITY STAT 10/27/2024 11:35 PM EDT SALICYLATE LEVEL STAT 10/27/2024 11:3 5 PM EDT ETHANOL STAT 10/27/2024 11:35 PM EDT COMPREHENSIVE METABOLIC PANEL STAT 10/27/2024 11:35 PM EDT XR CHEST 1 VIEW STAT 10/27/2024 11:19 PM EDT ARTERIAL BLOOD GAS STAT 10/27/2024 11 :01 PM EDT MT CRITICAL CARE 30-74 MINUTES Routine 10/27/2024 10:44 PM EDT from Last 3 Months Results * POCT Glucose, blood (11/15/2024 8:33 AM EDT) Only the most recent of64 resultswithin the time period is included. [facility] Glucose POCT 122 70 - 199 mg/dL 11/15/2024 8:34 AM EDT [facility] Comment: Fasting Reference Range: 70-99 mg/dL Non-Fasting Reference Range: 70-199 mg/dL Blood Capillary blood specimen / Unknown 11/15/2024 8:33 AM EDT 11/15/2024 8:35 AM EDT us Cathy Sherman MD LAB POINT OF CARE TE ST DOCKED DEVICE UNSOLICITED RESULTS Final Result [facility] [address] [place] [address], * (ABNORMAL) Complete blood count (11/15/2024 4:07 AM EDT) Only the most recent of18 resultswithin the time period is included. WBC 8.2 4.0 - 10.5 K/mcL LAB HEMETOLOGY METHOD 11/15/2024 4:18 AM EDT [facility] RBC 3.26(L) 4.20 - 5.40 M/mcL LAB HEMETOLOGY METHOD 11/15/2024 4:18 AM EDT [facility] Hemoglobin 9.5(L) 12.5 - 16.0 g/dL LAB HEMETOLOGY METHOD 11/15/2024 4:18 AM EDT [facility] Hematocrit 28.3(L) 37.0 - 47.0 % LAB HEMETOLOGY METHOD 11/15/2024 4:18 AM EDT [facility] MCV 86.8 78.0 - 100.0 FL LAB HEMETOLOGY METHOD 11/15/2024 4:18 AM EDT [facility] MCH 29.0 25.0 - 33.0 pcg LAB HEMETOLOGY METHOD 11/15/2024 4:18 AM EDT [facility] MCHC 33.4 32.0 - 36.0 g/dL LAB HEMETOLOGY METHOD 11/15/2024 4:18 AM EDT [facility] RDW 14.4 12.1 - 16.2 % LAB HEMETOLOGY METHOD 11/15/2024 4:18 AM EDT [facility] Platelets 678(H) 150 - 450 K/mcL LAB HEMETOLOGY METHOD 11/15/2024 4:18 AM EDT [facility] MPV 7.7 7.4 - 11.4 FL LAB HEMETOLOGY METHOD 11/15/2024 4:18 AM EDT [facility] Blood Venous blood specimen / Unknown Venipuncture / Unknown 11/15/2024 4:07 AM EDT 11/15/2024 4:11 AM EDT us Bryant Quintero MD LAB BLOOD ORDERABLES Final Re sult Performing Organization Address City/[facility]/ZIP Co de Phone Number [facility] [address] [place] [address], [place] [phone] * Phosphorus (11/15/2024 4:07 AM EDT) Only the most recent of20 resultswithin the time period is included. Phosphorus 3.5 2.5 - 4.5 mg/dL LAB CHEMISTRY METHOD 11/15/2024 4:40 AM EDT [facility] Blood Venous blood specimen / Unknown Venipuncture / Unknown 11/15/2024 4:07 AM EDT 11/15/2024 4:11 AM EDT us Bryant Quintero MD LAB BLOOD ORDERABLES Final Re sult Performing Organization Address City/[facility]/ZIP Co de Phone Number [facility] [address] [place] [address], [place] [phone] * Magnesium (11/15/2024 4:07 AM EDT) Only the most recent of33 resultswithin the time period is included. Magnesium 1.9 1.7 - 2.8 mg/dL LAB CHEMISTRY METHOD 11/15/2024 4:40 AM EDT [facility] Blood Venous blood specimen / Unknown Venipuncture / Unknown 11/15/2024 4:07 AM EDT 11/15/2024 4:11 AM EDT us Bryant Quintero MD LAB BLOOD ORDERABLES Final Re sult [facility] [address] [place] [address], [place] [phone] * (ABNORMAL) Basic metabolic panel (11/14/2024 4:16 PM EDT) Only the most recent of31 resultswithin the time period is included. Sodium 133(L) 135 - 145 mmol/L LAB CHEMISTRY METHOD 11/14/2024 5:04 PM EDT [facility] Potassium 3.5 3.5 - 5.1 mmol/L LAB CHEMISTRY METHOD 11/14/2024 5:04 PM EDT [facility] Chloride 96(L) 98 - 107 mmol/L LAB CHEMISTRY METHOD 11/14/2024 5:04 PM EDT [facility] CO2 26 24 - 32 mmol/L LAB CHEMISTRY METHOD 11/14/2024 5:04 PM EDT [facility] Anion Gap 11 5 - 14 LAB CHEMISTRY METHOD 11/14/2024 5:04 PM EDT [facility] Glucose 129 70 - 199 mg/dL LAB CHEMISTRY METHOD 11/14/2024 5:04 PM EDT [facility] BUN 22(H) 7 - 17 mg/dL LAB CHEMISTRY METHOD 11/14/2024 5:04 PM EDT [facility] Creatinine 0.60 0.50 - 1.00 mg/dL LAB CHEMISTRY METHOD 11/14/2024 5:04 PM EDT [facility] eGFR 103 >=60 mL/min/1. 73m2 LAB CHEMISTRY METHOD 11/14/2024 5:04 PM EDT [facility] Comment:Calculation based on the Chronic Kidney Disease Epidemiology Collaboration (CKD-EPI) equation refit without adjustment for race. BUN/Creatinine Ratio 36.7(H) 12.0 - 20.0 LAB CHEMISTRY METHOD 11/14/2024 5:04 PM EDT [facility] Calcium 9.9 8.4 - 10.2 mg/dL LAB CHEMISTRY METHOD 11/14/2024 5:04 PM EDT [facility] Blood Venous blood specimen / Unknown Venipuncture / Unknown 11/14/2024 4:16 PM EDT 11/14/2024 4:31 PM EDT us Bryant Quintero MD LAB BLOOD ORDERABLES Final Re sult Performing Organization Address City/[facility]/ZIP Co de Phone Number [facility] [address] [place] [address], [place] [phone] * Calcium, ionized (11/14/2024 6:49 AM EDT) Only the most recent of19 resultswithin the time period is included. Calcium Ionized 1.27 1.19 - 1.35 mg/dL LAB BLOOD GAS METHOD 11/14/2024 7:15 AM EDT [facility] Blood Venous blood specimen / Unknown Venipuncture / Unknown 11/14/2024 6:49 AM EDT 11/14/2024 7:09 AM EDT us Bryant Quintero MD LAB BLOOD ORDERABLES Final Re sult Performing Organization Address [facility] Co de Phone Number [facility] [address] [place] [address], [place] [phone] * CT Head wo Contrast (11/12/2024 5:26 AM EDT) Only the most recent of5 resultswithin the time period is included. Anatomical Region Laterality Modality Head and Neck Computed Tomogra phy 11/12/2024 7:45 AM EDT Addenda Addendum by Jose Maharaj MD on 11/18/2024 2:19 PM EDT I was asked by Dr. Butler to review the patient's CT imaging studies on 11/11/2024 and 11/12/2024, including the brain MRI from 10/30/2024. The curvilinear areas of hyperdensity on the head CT examinations from 11/11/2024-11/12/2024 I believe are within the brain parenchyma in the cortical bob matter at sites of acute infarction described on the prior brain MRI examination. These findings either represent gyral petechial hemorrhage and/or mineralization in the setting of laminar necrosis. Additional increased density noted at these multifocal sites of suspected infarction on the 8:[address] from 11/11/2024 as a result of presumed residual contrast staining/enhancement. Residual contrast present from the patient's CT angiogram study acquired earlier on 11/11/2024 at 2:10 AM. 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 These findings were described on prior imaging from 11/11/2024 as well. 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 No definite subarachnoid hemorrhage otherwise visible. A follow-up noncontrast head CT could be obtained in order to discern as to whether findings are more indicative for mineralization from laminar necrosis which will be unchanged, as opposed to gyral petechial hemorrhage which should dissipate over time. Report reviewed and signed by : Dr. Jose Maharaj on 11/18/2024 2:19 PM. Workstation Name - [id number] -------- ADDENDUM -------- Dictated By: Jose Maharaj Dictated Date: 11/18/2024 14:09 ET Assigned Physician: Jose Maharaj Reviewed and Electronically Signed By: Jose Maharaj Signed Date: 11/18/2024 14:19 ET Workstation ID: [id number] Transcribed By: Self Edit Transcribed Date: 11/18/2024 14:09 ET Impressions 11/12/2024 7:50 AM EDT 1. There is stable appearance of small subarachnoid hemorrhage in the bilateral parietal and occipital lobes and left frontal lobe as well as the right cerebellum. No evidence of new hemorrhage, and no mass effect or midline shift. 2. Trace bilateral sphenoid sinus disease Report reviewed and signed by : Dr. Delmis Harper on 11/12/2024 7:50 AM. Workstation Name - [id number] -------- FINAL REPORT -------- Dictated By: Delmis Harper Dictated Date: 11/12/2024 07:45 ET Assigned Physician: Delmis Harper Reviewed and Electronically Signed By: Delmis Harper Signed Date: 11/12/2024 07:50 ET Workstation ID: [id number] Transcribed By: Self Edit Transcribed Date: 11/12/2024 07:45 ET Narrative 11/12/2024 7:[address] OF THE BRAIN WITHOUT IV CONTRAST CLINICAL HISTORY: Cerebral hemorrhage suspected other TECHNIQUE: Exam is performed without intravenous contrast. Per PQRS, CT exam is performed using one or more of the following dose reduction techniques: Automated exposure control, adjustment of the mA and/or KV according to patient size, or use of iterative reconstruction techniques. COMPARISON: 11/11/2024 FINDINGS: There is stable appearance of small subarachnoid hemorrhage in the bilateral parietal and occipital lobes and left frontal lobe as well as the right cerebellum. No evidence of new hemorrhage, and no mass effect or midline shift. Normal sized ventricles. Intracranial vascular calcifications. Extra-axial compartments are normal. Trace bilateral sphenoid sinus disease. Mastoid air spaces are clear. Middle ear cavities are clear. Calvarium is intact. Scalp is unremarkable. Procedure Note Delmis Harper MD / Jose Maharaj MD - 11/12/2024 CT OF THE BRAIN WITHOUT IV CONTRAST CLINICAL HISTORY: Cerebral hemorrhage suspected other TECHNIQUE: Exam is performed without intravenous contrast. Per PQRS, CT exam is performed using one or more of the following dosereduction techniques: Automated exposure control, adjustment of the mAand/or KV according to patient size, or use of iterative reconstructiontechniques. COMPARISON: 11/11/2024 FINDINGS: There is stable appearance of small subarachnoid hemorrhage in thebilateral parietal and occipital lobes and left frontal lobe as well asthe right cerebellum. No evidence of new hemorrhage, and no mass effector midline shift. Normal sized ventricles. Intracranial vascular calcifications.Extra-axial compartments are normal. Trace bilateral sphenoid sinus disease. Mastoid air spaces are clear. Middle ear cavities are clear. Calvarium is intact. Scalp is unremarkable. IMPRESSION: 1. There is stable appearance of small subarachnoid hemorrhage in thebilateral parietal and occipital lobes and left frontal lobe as well asthe right cerebellum. No evidence of new hemorrhage, and no mass effector midline shift. 2. Trace bilateral sphenoid sinus disease Report reviewed and signed by : Dr. Delmis Harper on 11/12/2024 7:50 AM.Workstation Name - [id number] -------- FINAL REPORT -------- Dictated By: Delmis Harper Dictated Date: 11/12/2024 07:45 ET Assigned Physician: Delmis Harper Reviewed and Electronically Signed By: Delmis Harper Signed Date: 11/12/2024 07:50 ET Workstation ID: [id number] Transcribed By: Self Edit Transcribed Date: 11/12/2024 07:45 ET us Bryant Quintero MD IMG CT PROCEDURES Edited Resu lt - Final * TRANSTHORACIC ECHOCARDIOGRAM (TTE) LIMITED WITH CONTRAST (11/11/2024 2:50 PM EDT) LV EDV (A2C) 63 mL CV PACS LV EDV (A4C) 110 mL CV PACS LV Diastolic Volume (BP) 83 46 - 106 mL CV PACS LV ESV (A2C) 29 mL CV PACS LV ESV (A4C) 47 mL CV PACS LV Systolic Volume (BP) 37 14 - 42 mL CV PACS LVOT Diameter 1.7 cm CV PACS LVOT Mean Grad 4 mmHg CV PACS LVOT Peak VTI 18.8 cm CV PACS LVOT Mean Nhan 0.9 m/s CV PACS LVOT Peak Nhan 1.3 m/s CV PACS LVOT Peak Gradient 7 mmHg CV PACS Ejection Fraction (A2C) 54 % CV PACS Ejection Fraction (A4C) 57 % CV PACS Ejection Fraction (BP) 55 % CV PACS LVOT Area 2.3 cm2 CV PACS LVOT Stroke Volume 43 mL CV PACS AV Regurgitation PHT 396 ms CV PACS AR Max Velocity 4.4 m/s CV PACS AV Peak Gradient 77 mmHg CV PACS IVC Proximal 0.7 cm CV PACS MV Peak A Nhan 1.91 m/s CV PACS MV Peak E Nhan 1.67 m/s CV PACS MV Mean Gradient 11 mmHg CV PACS MV VTI 46.9 cm CV PACS Mitral Valve Max Velocity 2.1 m/s CV PACS MV Peak Gradient 17 mmHg CV PACS MV Area Continuity Equation 0.9 cm2 CV PACS TAPSE 17 mm CV PACS TR Peak Velocity 2.41 m/s CV PACS TR Peak Gradient 23 mmHg CV PACS LV ESV Index (A4C) 33 mL/m2 CV PACS LV EDV Index (A4C) 76 mL/m2 CV PACS LVOT Stroke Index 30 mL/m2 CV PACS MV VTI:LVOT VTI ratio 2.5 CV PACS LVOT flow 204 mL/s CV PACS E/A Ratio 0.9 CV PACS LV Systolic Volume Index (BP) 26 mL/m2 CV PACS LV Diastolic Volume Index (BP) 58 mL/m2 CV PACS LV EDV Index (A2C) 44 mL/m2 CV PACS LV ESV Index (A2C) 20 mL/m2 CV PACS BSA 1.4 m2 CV PACS Anatomical Region Laterality Modality Ultrasound Narrative 11/11/2024 3:57 PM EDT Left ventricle cavity size is normal. Left ventricular systolic function is in the normal range with an ejection fraction of 55-60%. Left ventricle mild concentric hypertrophy. Aortic valve demonstrates moderate regurgitation. The aortic valve is trileaflet. There is moderate regurgitation with a centrally directed jet. There is no evidence of aortic valve stenosis. 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 MV mean gradient is 11 mmHg. The LV function has essentially normalized. Left Ventricle Left ventricle cavity size is normal. There is mild concentric hypertrophy. Systolic function is normal with an ejection fraction of 55-60%. Unable to assess diastolic function. Right Ventricle Right ventricle cavity appears normal. Systolic function is normal. Normal TAPSE (> 17 mm). Left Atrium Left atrium cavity is moderately dilated. Right Atrium Right atrium cavity is normal. IVC/SVC Inferior vena cava structure is normal. 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 MV mean gradient is 11 mmHg. Tricuspid Valve Tricuspid valve structure is normal. There is trace regurgitation. There is no evidence of tricuspid valve stenosis. Aortic Valve The aortic valve is trileaflet. There is moderate regurgitation. There is no evidence of aortic valve stenosis. Pulmonic Valve The pulmonic valve was not well visualized. There is trace pulmonic valve regurgitation. There is no evidence of pulmonic valve stenosis. Ascending Aorta The aorta was not well visualized. Pericardium Pericardium appears normal. There is no pericardial effusion. Study Details Overall the study quality was adequate. Definity contrast was given to enhance imaging. Wall Scoring Baseline Score Index: 1.00 The left ventricular wall motion is normal. Thierno Burkett MD CV ECHO PROCEDURES Final Result * CT Angio Head/Neck Stroke wo and/or w Contrast (11/11/2024 2:10 AM EDT) Only the most recent of2 resultswithin the time period is included. Anatomical Region Laterality Modality Head and Neck Computed Tomogra phy 11/11/2024 4:17 AM EDT Impressions 11/11/2024 4:35 AM EDT 1. Calcific atherosclerosis of the distal common carotid arteries/carotid bulb regions noted bilaterally without significant flow-limiting stenosis. 2. No cervical carotid/vertebral arterial occlusion or hemodynamically significant flow limiting stenosis by NASCET criteria. 3. Unremarkable CTA brain without major vessel arterial occlusion, focal saccular aneurysm, or flow-limiting stenosis identified. 4. No enhancing soft tissue neck mass, fluid collection, or cervical lymphadenopathy noted. 5. No enhancing brain mass, fluid collection, major intracranial dural venous sinus thrombosis, or vascular malformation identified. NASCET carotid stenosis reference (distal ICA diameter as denominator for stenosis measurement) MILD: <50% stenosis MODERATE: 50-69% stenosis SEVERE: 70-89% stenosis HAIRLINE/CRITICAL: 90-99% stenosis OCCLUDED: 100% stenosis Report reviewed and signed by : Dr. Jose Vicente on 11/11/2024 3:35 AM. Workstation Name - [id number] -------- FINAL REPORT -------- Dictated By: Jose Vicente Dictated Date: 11/11/2024 04:17 ET Assigned Physician: Jose Vicente Reviewed and Electronically Signed By: Jose Vicente Signed Date: 11/11/2024 04:35 ET Workstation ID: [id number] Transcribed By: Self Edit Transcribed Date: 11/11/2024 04:17 ET Narrative 11/11/2024 4:[address] ANGIO HEAD/NECK STROKE WO AND/OR W CONTRAST HISTORY: 58 years Female Cerebral hemorrhage suspected COMPARISON: None TECHNIQUE: Helical CT scanning of the head and neck was performed following the bolus administration of 80 cc IV ISOVUE. High resolution reformatted images were produced. In addition a three-dimensional model of the head and neck vasculature was created on an independent workstation under concurrent physician supervision. [employer] software was used. FINDINGS: CTA NECK: COMMON CAROTID ARTERIES: No arterial occlusion or aneurysm. Calcific atherosclerosis of the distal common carotid arteries/carotid bulb regions noted bilaterally without significant flow-limiting stenosis. INTERNAL CAROTID ARTERIES: No occlusion, aneurysm or significant stenosis. Mild scattered calcified plaque in the bilateral carotid bulb and proximal internal carotid arteries without significant luminal narrowing. EXTERNAL CAROTID ARTERIES: No occlusion, aneurysm or significant stenosis. VERTEBRAL ARTERIES: No occlusion, aneurysm or significant stenosis. GREAT VESSELS: No occlusion, aneurysm or significant stenosis. Soft tissues neck findings: Bilateral parotid, submandibular, and thyroid glands appear symmetric and unremarkable. No cervical lymphadenopathy by size criteria seen. No enhancing soft tissue neck mass or fluid collections noted. No prevertebral or retropharyngeal soft tissue swelling or fluid collection/abscess is seen. No peritonsillar fluid collection/abscess noted. The nasopharyngeal, oropharyngeal, tongue base, and hypopharyngeal soft tissues appear symmetric without nodularity or mass. Visualized lung apices appear aerated and clear. Osseous structures are grossly intact and unremarkable. CTA BRAIN: Bilateral intracranial internal carotid arteries, anterior cerebral arteries, middle cerebral arteries, posterior cerebral arteries, intracranial vertebral arteries, and basilar artery are patent without occlusion, significant stenosis, or saccular aneurysm. No enhancing brain mass or fluid collections are seen. No evidence of vascular malformation identified. Major intracranial dural venous sinuses are patent and unremarkable. Osseous structures are intact without fracture or subluxation. No air-fluid levels noted in the paranasal sinuses or mastoid air cells. Bilateral globes and retrobulbar structures are intact and symmetric. No scalp abnormality seen. Procedure Note Jose Vicente MD - 11/11/2024 CT ANGIO HEAD/NECK STROKE WO AND/OR W CONTRAST HISTORY: 58 years Female Cerebral hemorrhage suspected COMPARISON: None TECHNIQUE: Helical CT scanning of the head and neck was performedfollowing the bolus administration of 80 cc IV ISOVUE. High resolutionreformatted images were produced. In addition a three-dimensional model ofthe head and neck vasculature was created on an independent workstationunder concurrent physician supervision. [employer] software was used. FINDINGS: CTA NECK: COMMON CAROTID ARTERIES: No arterial occlusion or aneurysm. Calcificatherosclerosis of the distal common carotid arteries/carotid bulb regionsnoted bilaterally without significant flow-limiting stenosis. INTERNAL CAROTID ARTERIES: No occlusion, aneurysm or significant stenosis.Mild scattered calcified plaque in the bilateral carotid bulb and proximalinternal carotid arteries without significant luminal narrowing. EXTERNAL CAROTID ARTERIES: No occlusion, aneurysm or significantstenosis. VERTEBRAL ARTERIES: No occlusion, aneurysm or significant stenosis. GREAT VESSELS: No occlusion, aneurysm or significant stenosis. Soft tissues neck findings: Bilateral parotid, submandibular, and thyroidglands appear symmetric and unremarkable. No cervical lymphadenopathy bysize criteria seen. No enhancing soft tissue neck mass or fluidcollections noted. No prevertebral or retropharyngeal soft tissue swellingor fluid collection/abscess is seen. No peritonsillar fluidcollection/abscess noted. The nasopharyngeal, oropharyngeal, tongue base,and hypopharyngeal soft tissues appear symmetric without nodularity ormass. Visualized lung apices appear aerated and clear. Osseous structuresare grossly intact and unremarkable. CTA BRAIN: Bilateral intracranial internal carotid arteries, anterior cerebralarteries, middle cerebral arteries, posterior cerebral arteries,intracranial vertebral arteries, and basilar artery are patent withoutocclusion, significant stenosis, or saccular aneurysm. No enhancing brain mass or fluid collections are seen. No evidence ofvascular malformation identified. Major intracranial dural venous sinusesare patent and unremarkable. Osseous structures are intact withoutfracture or subluxation. No air-fluid levels noted in the paranasalsinuses or mastoid air cells. Bilateral globes and retrobulbar structuresare intact and symmetric. No scalp abnormality seen. IMPRESSION: 1. Calcific atherosclerosis of the distal common carotid arteries/carotidbulb regions noted bilaterally without significant flow-limitingstenosis. 2. No cervical carotid/vertebral arterial occlusion or hemodynamicallysignificant flow limiting stenosis by NASCET criteria. 3. Unremarkable CTA brain without major vessel arterial occlusion, focalsaccular aneurysm, or flow-limiting stenosis identified. 4. No enhancing soft tissue neck mass, fluid collection, or cervicallymphadenopathy noted. 5. No enhancing brain mass, fluid collection, major intracranial duralvenous sinus thrombosis, or vascular malformation identified. NASCET carotid stenosis reference (distal ICA diameter as denominator forstenosis measurement) MILD: <50% stenosis MODERATE: 50-69% stenosis SEVERE: 70-89% stenosis HAIRLINE/CRITICAL: 90-99% stenosis OCCLUDED: 100% stenosis Report reviewed and signed by : Dr. Jose Vicente on 11/11/2024 3:35 AM.Workstation Name - [id number] -------- FINAL REPORT -------- Dictated By: Jose Vicente Dictated Date: 11/11/2024 04:17 ET Assigned Physician: Jose Vicente Reviewed and Electronically Signed By: Jose Vicente Signed Date: 11/11/2024 04:35 ET Workstation ID: [id number] Transcribed By: Self Edit Transcribed Date: 11/11/2024 04:17 ET Thierno Burkett MD IM CT PROCEDURES Final Result * CT Cervical Spine wo Contrast (11/11/2024 12:30 AM EDT) Anatomical Region Laterality Modality Spine, C-spine Computed Tomogra phy 11/11/2024 12:4 7 AM EDT Impressions 11/11/2024 12:52 AM EDT No acute cervical spinal fracture or subluxation. Report reviewed and signed by : Dr. Jose Vicente on 11/10/2024 11:52 PM. Workstation Name - [id number] -------- FINAL REPORT -------- Dictated By: Jose Vicente Dictated Date: 11/11/2024 00:47 ET Assigned Physician: Jose Vicente Reviewed and Electronically Signed By: Jose Vicente Signed Date: 11/11/2024 00:52 ET Workstation ID: [id number] Transcribed By: Self Edit Transcribed Date: 11/11/2024 00:47 ET Narrative 11/11/2024 12:52 AM EDT PROCEDURE: CT CERVICAL SPINE WO CONTRAST HISTORY: 58 years Female unwitnessed fall COMPARISON: None. TECHNIQUE: CT CERVICAL SPINE WO CONTRAST. Coronal and sagittal reformatted images were obtained. FINDINGS: There is no acute fracture of the skull base or cervical vertebral bodies seen. C1-C2 articulation is intact and symmetric. Normal alignment of the anterior and posterior spinal elements noted without subluxation or spondylolisthesis. No significant central spinal canal stenosis or degenerative changes of the cervical spine noted. No significant prevertebral soft tissue swelling or mass/hematoma seen. No air-fluid levels are noted in the mastoid air cells bilaterally. The visualized parotid, submandibular, and thyroid glands appear grossly unremarkable. Visualized lung apices appear aerated without pneumothorax, pulmonary contusions, or airspace consolidation. Mild pleural parenchymal scarring bilateral lung apices. Procedure Note Jose Vicente MD - 11/11/2024 PROCEDURE: CT CERVICAL SPINE WO CONTRAST HISTORY: 58 years Female unwitnessed fall COMPARISON: None. TECHNIQUE: CT CERVICAL SPINE WO CONTRAST. Coronal and sagittal reformattedimages were obtained. FINDINGS: There is no acute fracture of the skull base or cervical vertebral bodiesseen. C1-C2 articulation is intact and symmetric. Normal alignment of the anterior and posterior spinal elements notedwithout subluxation or spondylolisthesis. No significant central spinal canal stenosis or degenerative changes ofthe cervical spine noted. No significant prevertebral soft tissue swelling or mass/hematoma seen. No air-fluid levels are noted in the mastoid air cells bilaterally. The visualized parotid, submandibular, and thyroid glands appear grosslyunremarkable. Visualized lung apices appear aerated without pneumothorax, pulmonarycontusions, or airspace consolidation. Mild pleural parenchymal scarringbilateral lung apices. IMPRESSION: No acute cervical spinal fracture or subluxation. Report reviewed and signed by : Dr. Jose Vicente on 11/10/2024 11:52 PM.Workstation Name - [id number] -------- FINAL REPORT -------- Dictated By: Jose Vicente Dictated Date: 11/11/2024 00:47 ET Assigned Physician: Jose Vicente Reviewed and Electronically Signed By: Jose Vicente Signed Date: 11/11/2024 00:52 ET Workstation ID: [id number] Transcribed By: Self Edit Transcribed Date: 11/11/2024 00:47 ET Cami Prado EXPLOSIVE OPERATOR BOMB IMG CT PROCEDURES Final Result * CT Chest/Abdomen/Pelvis wo Contrast (11/09/2024 4:48 PM EDT) Anatomical Region Laterality Modality Body Computed Tomogra phy 11/09/2024 6:43 PM EDT Impressions 11/09/2024 7:05 PM EDT 1. Right lower lobe pneumonia. 2. Trace bilateral pleural effusions. 3. Marked left atrial dilatation. 4. Cholelithiasis. 5. Aortic and coronary atherosclerosis. Report reviewed and signed by : Dr. Delmis Harper on 11/09/2024 7:05 PM. Workstation Name - [id number] -------- FINAL REPORT -------- Dictated By: Delmis Harper Dictated Date: 11/09/2024 18:43 ET Assigned Physician: Delmis Harper Reviewed and Electronically Signed By: Delmis Harper Signed Date: 11/09/2024 19:05 ET Workstation ID: [id number] Transcribed By: Self Edit Transcribed Date: 11/09/2024 18:43 ET Narrative 11/09/2024 7:[address] OF THE CHEST/ABDOMEN/PELVIS WITHOUT IV CONTRAST CLINICAL HISTORY: Sepsis TECHNIQUE: Serial axial images obtained. Sagittal reconstructed images obtained. Coronal reconstructed images obtained. Exam is performed without the administration of intravenous contrast. Per PQRS, CT exam is performed using one or more of the following dose reduction techniques: Automated exposure control, adjustment of the mA and/or KV according to patient size, or use of iterative reconstruction techniques. COMPARISON: None FINDINGS: HEART: Marked left atrial dilatation and coronary artery calcifications noted. VASCULATURE: Aortic atherosclerosis. There is normal caliber of the pulmonary artery trunk in relation to the aorta. THORAX: Right lower lobe consolidation is suggestive of pneumonia. Trace bilateral pleural effusions with associated atelectasis. THYROID: Appearance is unremarkable. CHEST CARVAJAL: Appearance is unremarkable. VISCERA: Reactive mediastinal lymphadenopathy is noted. ESOPHAGUS: Appearance is unremarkable. STOMACH: Appearance is unremarkable. PANCREAS: Appearance is unremarkable. GALLBLADDER: Cholelithiasis. LIVER: Appearance is unremarkable. ADRENALS: Appearance is unremarkable. SPLEEN: Appearance is unremarkable. KIDNEYS: Appearance is unremarkable. BLADDER: A Hannah catheter is seen in the bladder along with associated air. GENITAL: Retroverted uterus. SMALL BOWEL: Appearance is unremarkable. Negative for small bowel dilatation. APPENDIX: Normal appendix. COLON: Appearance is unremarkable. ABDOMINAL/PELVIC CARVAJAL: Trace amount of air in the right anterior abdominal wall likely injection related. BONES: Surgical hardware noted in the right femur, and chronic compression deformities of T6 and T8. Disc space narrowing at T12-L1. Procedure Note Delmis Harper MD - 11/09/2024 CT OF THE CHEST/ABDOMEN/PELVIS WITHOUT IV CONTRAST CLINICAL HISTORY: Sepsis TECHNIQUE: Serial axial images obtained. Sagittal reconstructed images obtained. Coronal reconstructed images obtained. Exam is performed without the administration of intravenous contrast. Per PQRS, CT exam is performed using one or more of the following dosereduction techniques: Automated exposure control, adjustment of the mAand/or KV according to patient size, or use of iterative reconstructiontechniques. COMPARISON: None FINDINGS: HEART: Marked left atrial dilatation and coronary artery calcificationsnoted. VASCULATURE: Aortic atherosclerosis. There is normal caliber of the pulmonary artery trunk in relation to theaorta. THORAX: Right lower lobe consolidation is suggestive of pneumonia. Tracebilateral pleural effusions with associated atelectasis. THYROID: Appearance is unremarkable. CHEST CARVAJAL: Appearance is unremarkable. VISCERA: Reactive mediastinal lymphadenopathy is noted. ESOPHAGUS: Appearance is unremarkable. STOMACH: Appearance is unremarkable. PANCREAS: Appearance is unremarkable. GALLBLADDER: Cholelithiasis. LIVER: Appearance is unremarkable. ADRENALS: Appearance is unremarkable. SPLEEN: Appearance is unremarkable. KIDNEYS: Appearance is unremarkable. BLADDER: A Hannah catheter is seen in the bladder along with associatedair. GENITAL: Retroverted uterus. SMALL BOWEL: Appearance is unremarkable. Negative for small boweldilatation. APPENDIX: Normal appendix. COLON: Appearance is unremarkable. ABDOMINAL/PELVIC CARVAJAL: Trace amount of air in the right anteriorabdominal wall likely injection related. BONES: Surgical hardware noted in the right femur, and chronic compressiondeformities of T6 and T8. Disc space narrowing at T12-L1. IMPRESSION: 1. Right lower lobe pneumonia. 2. Trace bilateral pleural effusions. 3. Marked left atrial dilatation. 4. Cholelithiasis. 5. Aortic and coronary atherosclerosis. Report reviewed and signed by : Dr. Delmis Harper on 11/09/2024 7:05 PM.Workstation Name - [id number] -------- FINAL REPORT -------- Dictated By: Delmis Harper Dictated Date: 11/09/2024 18:43 ET Assigned Physician: Delmis Harper Reviewed and Electronically Signed By: Delmis Harper Signed Date: 11/09/2024 19:05 ET Workstation ID: [id number] Transcribed By: Self Edit Transcribed Date: 11/09/2024 18:43 ET Nat GILES IMG CT PROCEDURES Final Result * ECG 12 lead (11/09/2024 11:41 AM EDT) Only the most recent of6 resultswithin the time period is included. Ventricular Rate ECG 107 BPM GEMUSE Atrial Rate 107 BPM GEMUSE P-R Interval 50 ms GEMUSE QRS Duration 112 ms GEMUSE Q-T Interval 406 ms GEMUSE QTc 542 ms GEMUSE P Wave [place] 31 degrees GEMUSE R [place] 28 degrees GEMUSE T [place] -117 degrees GEMUSE ECG Interpretation Sinus tachycardia with short MT Moderate voltage criteria for LVH, may be normal variant ( Sokolow-Hagan , Jerome product ) Anterior infarct , age undetermined Marked ST abnormality, possible lateral subendocardial injury Prolonged QT Abnormal ECG Confirmed by Jerman Oakes ([id number]) on 11/10/2024 2:14:22 PM GEMUSE 11/09/2024 11:4 1 AM EDT 11/10/2024 2:14 PM EDT Nat GILES ECG ORDERABLES Final R esult Performing Organization Address City/[facility]/ZIP Co de Phone Number SHUAS * Blood Culture, Peripheral Draw #2 (11/09/2024 11:19 AM EDT) Only the most recent of4 resultswithin the time period is included. Culture, Blood No growth at 5 days 11/14/2024 12:01 PM EDT [facility] Blood Venous blood specimen / Unknown Venipuncture / Unknown 11/09/2024 11:19 AM EDT 11/09/2024 11:30 AM EDT us Lenin Jimenez MD LAB MICROBIOLOGY - GENERAL O RDERABLES Final Result Performing Organization Address [facility] Co de Phone Number [facility] [address] [place] [address], [place] [phone] * HIV 1,2 antibody, p24 antigen with reflex to differentiation (11/09/2024 11:13 AM EDT) Pathologist [facility] HIV Combo AB/AG Negative Negative LAB CHEMISTRY METHOD 11/09/2024 1:31 PM EDT [facility] Blood Venous blood specimen / Unknown Venipuncture / Unknown 11/09/2024 11:13 AM EDT 11/09/2024 11:30 AM EDT Narrative [facility] - 11/09/2024 1:31 PM EDT Nonreactive result does not rule out HIV infection. us Lenin Jimenez MD LAB BLOOD ORDERABLES Final R esult Performing Organization Address [facility]/ZIP Co de Phone Number [facility] [address] [place] [address], [place] [phone] * Hepatitis panel, acute (11/09/2024 11:13 AM EDT) Hepatitis B Surface Ag Negative Negative LAB CHEMISTRY METHOD 11/09/2024 1:31 PM EDT [facility] Hepatitis A Antibody IgM Negative Negative LAB CHEMISTRY METHOD 11/09/2024 1:31 PM EDT [facility] Hep B Core IgM Negative Negative LAB CHEMISTRY METHOD 11/09/2024 1:31 PM EDT [facility] Hepatitis C Antibody Negative Negative LAB CHEMISTRY METHOD 11/09/2024 1:31 PM EDT [facility] Blood Venous blood specimen / Unknown Venipuncture / Unknown 11/09/2024 11:13 AM EDT 11/09/2024 11:30 AM EDT us Lenin Jimenez MD LAB BLOOD ORDERABLES Final R esult [facility] [address] [place] [address], [place] [phone] * (ABNORMAL) Urinalysis with reflex microscopic and culture (11/09/2024 10:42 AM EDT) Color, Urine Yellow Yellow, Colorless LAB URINALYSIS - AUTOMATED METHOD 11/09/2024 11:03 AM EDT [facility] Clarity, Urine Clear Clear LAB URINALYSIS - AUTOMATED METHOD 11/09/2024 11:03 AM T [facility] Specific [place] Urine 1.009 1.005 - 1.030 LAB URINALYSIS - AUTOMATED METHOD 11/09/2024 11:03 AM EDT [facility] pH, Urine 7.0 5.0 - 8.0 pH LAB URINALYSIS - AUTOMATED METHOD 11/09/2024 11:03 AM EDT [facility] Leukocytes, Urine Trace(A) Negative WBCs/mcL LAB URINALYSIS - AUTOMATED METHOD 11/09/2024 11:03 AM [facility] Nitrite, Urine Negative Negative LAB URINALYSIS - AUTOMATED METHOD 11/09/2024 11:03 AM EDT [facility] Protein, Urine Negative Negative mg/dL LAB URINALYSIS - AUTOMATED METHOD 11/09/2024 11:03 AM [facility] Glucose, Urine Negative Negative mg/dL LAB URINALYSIS - AUTOMATED METHOD 11/09/2024 11:03 AM [facility] Ketones, Urine Negative Negative mg/dL LAB URINALYSIS - AUTOMATED METHOD 11/09/2024 11:03 AM EDT [facility] Blood, Urine Small(A) Negative mg/dL LAB URINALYSIS - AUTOMATED METHOD 11/09/2024 11:03 AM [facility] RBC, Urine 4(H) 0 - 3 /HPF LAB URINALYSIS - AUTOMATED METHOD 11/09/2024 11:03 AM [facility] WBC, Urine 1 0 - 5 /HPF LAB URINALYSIS - AUTOMATED METHOD 11/09/2024 11:03 AM [facility] Bacteria, Urine Present(A) Not Present /HPF LAB URINALYSIS - AUTOMATED METHOD 11/09/2024 11:03 AM [facility] Squamous Epithelial, Urine 2 0 - 5 /HPF LAB URINALYSIS - AUTOMATED METHOD 11/09/2024 11:03 AM [facility] Hyaline Casts, Urine 2(H) <=0 /LPF LAB URINALYSIS - AUTOMATED METHOD 11/09/2024 11:03 AM [facility] Urine Urine specimen obtained by clean catch procedure / Unknown Non-blood Collection / Unknown 11/09/2024 10:42 AM EDT 11/09/2024 10:50 AM EDT us Lenin Jimenez MD LAB URINE ORDERABLES Final R esult [facility] [address] [place] [address], [place] [phone] * Bob urine culture tube (11/09/2024 10:42 AM EDT) [facility] Extra Tube Hold for add-ons. 11/09/2024 12:01 PM EDT [facility] Comment:Auto resulted. Urine Urine specimen obtained by clean catch procedure / Unknown Non-blood Collection / Unknown 11/09/2024 10:42 AM EDT 11/09/2024 10:50 AM EDT us Lenin Jimenez MD LAB URINE ORDERABLES Final R esult Performing Organization Address City/[facility]/ZIP Co de Phone Number [facility] [address] [place] [address], * (ABNORMAL) Culture urine (11/09/2024 10:42 AM EDT) [facility] Culture, Urine 50,000-100, 000 CFU/mL Jessie albicans(A) JAMMIE 11/12/2024 9:46 AM EDT [facility] Comment: The organism value for this result has been updated. These results have been appended to the previously preliminary verified report. Edited result: Previously reported as Yeast on 11/11/2024 at 1117 EDT. Urine Urine specimen obtained by clean catch procedure / Unknown Non-blood Collection / Unknown 11/09/2024 10:42 AM EDT 11/09/2024 11:03 AM EDT us Lenin Jimenez MD LAB MICROBIOLOGY - GENERAL O RDERABLES Final Result [facility] [address] [place] [address], [place] [phone] * (ABNORMAL) Hepatic function panel (11/09/2024 3:43 AM EDT) [facility] ALT (SGPT) 70(H) 7 - 52 unit/L LAB CHEMISTRY METHOD 11/09/2024 4:21 AM EDT [facility] AST (SGOT) 43(H) 5 - 40 unit/L LAB CHEMISTRY METHOD 11/09/2024 4:21 AM EDT [facility] Alkaline Phosphatase 112(H) 34 - 104 unit/L LAB CHEMISTRY METHOD 11/09/2024 4:21 AM EDT [facility] Bilirubin, Direct 0.0 0.0 - 0.2 mg/dL LAB CHEMISTRY METHOD 11/09/2024 4:21 AM EDT [facility] Total Bilirubin 0.6 0.3 - 1.0 mg/dL LAB CHEMISTRY METHOD 11/09/2024 4:21 AM EDT [facility] Total Protein 9.3(H) 6.4 - 8.5 g/dL LAB CHEMISTRY METHOD 11/09/2024 4:21 AM EDT [facility] Albumin 4.1 3.5 - 5.0 g/dL LAB CHEMISTRY METHOD 11/09/2024 4:21 AM EDT [facility] Globulin, Total 5.2(H) 2.3 - 3.5 g/dL LAB CHEMISTRY METHOD 11/09/2024 4:21 AM EDT [facility] A/G Ratio 0.8 LAB CHEMISTRY METHOD 11/09/2024 4:21 AM EDT [facility] Blood Venous blood specimen / Unknown Venipuncture / Unknown 11/09/2024 3:43 AM EDT 11/09/2024 3:51 AM EDT us Malachi Ivory MD LAB BLOOD ORDERABLES Final Res ult [facility] [address] [place] [id number], * SENIOR CLIMATE ADVISOR fiberoptic endoscopic swallow evaluation (11/08/2024 12:40 PM EDT) Narrative Ashley Owens CCC-SLP - 11/08/2024 12:40 PM EDT TINO Nguyen 11/08/2024 3:[address] [place] [id number] Department of Rehabilitation Medicine Speech Language Pathology Flexible Endoscopic Evaluation of Swallowing Patient Name: Steffi Bella Date of Evaluation: 11/08/2024 Summary and Impressions: Steffi Bella is a 58 y.o. who presents with grossly functional oral phase of the swallow, however, with limited dentition. Oral cavity in poor condition, lingual surface coated white (RN reported pt being tx for thrush). Pt with adequate pharyngeal swallow function. + vocal fold adduction when speech tasks were performed. Pt coughing initially 2/2 penetration occurring with minimal amounts of clear, thin secretions. Trace penetration occurred with initial trial of thin liquids only. Aspiration did not occur with subsequent trials of thin liquid via straw, puree solids, Soft & Bite Sized Solids, or regular solids. All in setting of s/p prolonged intubation and acute CVA. Additional Comments: Pt received on 3 02 via NC, vocal quality remains raspy. Education Provided: Education provided to pt regarding results of FEES and recommendations. Recommendations/Findings/Plan: Dysphagia Diagnosis: grossly functional oral phase of the swallow, adequate pharyngeal swallow function Prognosis for Safe Diet Advancement: Good Diet Recommendations: Regular Solids and Thin/Regular liquids Liquid Administration via: Cup and Straw Medication Administration: PO Supervision: Close , Assist with set-up, and Assist with Compensatory Strategies Compensation/Maneuvers: Slow Rate and Small bites/sips Environmental Considerations: Upright 90 degrees Oral Hygiene: Frequent oral care 2x/day with Toothbrush to reduce/prevent accumulation of pathogenic oropharyngeal bacteria. Treatment Plan: Skilled Dysphagia Therapy Treatment Frequency: One time only follow-up Assessment Details: Past Medical History Past Surgical History Past Medical History: Diagnosis Date Asthma DX:Asthma Past Surgical History: Procedure Laterality Date HIP SURGERY PROCEDURE:HIP SURGERY SHOULDER SURGERY PROCEDURE:SHOULDER SURGERY H&P: Referring Diagnosis: s/p prolonged intubation, CVA History of Present Illness: Pt presented to [facility] in respiratory distress. Pt was intubated for 11 days. CXR revealed pulmonary edema and she was intubated for acute hypoxic respiratory failure. CTA chest ruled out PE. Echocardiogram was concerning for HFrEF with EF of 20%, Severe AI, and Severe MR. She was then transferred to the [facility] CICU for a higher level of care. She completed a course of antibiotics for concerns of a bilateral pneumonia. A [place] catheter was placed, which showed volume overload and adequate CO/CI; she required Levophed for hypotension. She underwent cardiac catheterization which revealed non-obstructive CAD. A transesophageal echocardiogram then ruled out endocarditis and showed an improvement in her EF to 35%. Unfortunately on 10/30 she had an ischemic stroke which resulted in right upper extremity weakness; neurology was consulted. 10/30 MRI brain: 1. 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 No hemorrhage or mass effect. No additional imaging is needed. 10/30 CXR: No significant interval change in pulmonary vascular congestion as well as bilateral pleural effusions with bibasilar and retrocardiac opacification compared to chest x-ray from one day earlier. Ordering physician: [place] used for FEES: Left Side Current Diet: NPO Dentition: Some missing teeth Positioning During Eval/Treatment: Upright in Bed Behaviors During Eval/Treatment: Cooperative Time Out: Correct Patient, Correct Procedure, and Time-Out Verified with Bong Reynoso RN. Oral/Motor: Oral Hygiene:Poor Oral Motor Comments: Oral mech was unremarkable, pt with absent upper dentition, anterior lower dentition only. Consistencies Trialed: Regular Solids, Soft & Bite-Sized / IDDSI-6, Puree / IDDSI-4, and Thin/Regular liquids Food coloring used: 1 drop and White, Oral Phase: Grossly functional oral phase of the swallow. Pharyngeal Phase: + vocal fold adduction when speech tasks were performed. Pt with minimal penetration that occurred with clear, thin secretions prior to po trials being performed. White out was complete. Complete pharyngeal stripping wave. Aspiration did not occur across consistencies trialed. Compensatory Strategies: Compensatory Strategies Trialed: Slow Rate and Small bites/sips Ashley Owens CCC-SENIOR CLIMATE ADVISOR 11/08/2024 Jose MCMILLAN ORDERABLES Final Result * Prealbumin (11/08/2024 11:37 AM EDT) Prealbumin 17 17 - 34 mg/dL LAB CHEMISTRY METHOD 11/08/2024 12:04 PM EDT [facility] Blood Venous blood specimen / Unknown Venipuncture / Unknown 11/08/2024 11:37 AM EDT 11/08/2024 11:40 AM EDT Jose GILES LAB BLOOD ORDERABLES Final R esult [facility] [address] [place] [id number], [place] [phone] * (ABNORMAL) Arterial blood gas (11/08/2024 3:52 AM EDT) Only the most recent of28 resultswithin the time period is included. pH, Arterial 7.42 7.35 - 7.45 pH LAB BLOOD GAS METHOD 11/08/2024 4:26 AM EDT [facility] pCO2, Arterial 43 35 - 45 mmHg LAB BLOOD GAS METHOD 11/08/2024 4:26 AM EDT [facility] pO2, Arterial 143(H) 80 - 105 mmHg LAB BLOOD GAS METHOD 11/08/2024 4:26 AM EDT [facility] HCO3, Arterial 27.2(H) 22.0 - 26.0 mmol/L LAB BLOOD GAS METHOD 11/08/2024 4:26 AM EDT [facility] O2 Sat, Arterial 100.0(H) 95.0 - 98.0 % LAB BLOOD GAS METHOD 11/08/2024 4:26 AM EDT [facility] Base Excess, Arterial 2.9(H) 0.0 - 2.0 mmol/L LAB BLOOD GAS METHOD 11/08/2024 4:26 AM EDT [facility] Blood Arterial blood specimen / Unknown Arterial Puncture / Unknown 11/08/2024 3:52 AM EDT 11/08/2024 4:06 AM EDT Rich GILES LAB BLOOD ORDERABLES Final Re sult [facility] [address] [place] [address], [place] [phone] * (ABNORMAL) POCT Arterial blood gas (11/07/2024 2:40 PM EDT) Only the most recent of2 resultswithin the time period is included. Sample Site POCT ART 11/08/2024 10:28 AM EDT [facility] pH Arterial POCT 7.45 7.35 - 7.45 11/08/2024 10:28 AM EDT [facility] pCO2 Arterial POCT 39.1 35 - 45 mmHg 11/08/2024 10:28 AM EDT [facility] pO2 Arterial POCT 83 80 - 105 mmHg [facility] Temp Corrected Arterial, POCT 7.44 7.35 - 7.45 11/08/2024 10:28 AM T [facility] pCO2 Temp Control Arterial, POCT 39.6 35 - 45 mmHg 11/08/2024 10:28 AM EDT [facility] pO2 Temp Corrected Arterial, POCT 85(HH) 35 - 45 mmHg 11/08/2024 10:28 AM [facility] HCO3 Arterial POCT 27.0(H) 22.0 - 26.0 mmol/L 11/08/2024 10:28 AM T [facility] Base Excess Arterial POCT 3(H) 0 - 2 mmol/L 11/08/2024 10:28 AM T [facility] SO2 Arterial POCT 97 95 - 98 % 11/08/2024 10:28 AM T [facility] FIO2 POCT 30.0 No Established Reference Range % 11/08/2024 10:28 AM T [facility] Patient Temperature POCT 99.1 C 11/08/2024 10:28 AM T [facility] Blood Arterial blood specimen / Unknown 11/07/2024 2:40 PM EDT 11/08/2024 10:29 AM EDT Lenin Jimenez MD LAB POINT OF CARE TE ST DOCKED DEVICE UNSOLICITED RESULTS Final Result [facility] [address] [place] [address], [place] [phone] * XR Chest 1 View (11/07/2024 6:02 AM EDT) Only the most recent of10 resultswithin the time period is included. Anatomical Region Laterality Modality Body Radiographic Luda ging 11/07/2024 6:41 AM EDT Impressions 11/07/2024 6:43 AM EDT FINDINGS/IMPRESSION: Small right pleural effusion. Otherwise clear lungs. Unremarkable heart. Right-sided catheter is stable. Endotracheal tube is stable. Enteric tube traverses the thorax. Report reviewed and signed by : Dr. Chilo Vora on 11/07/2024 6:43 AM. Workstation Name - [id number] -------- FINAL REPORT -------- Dictated By: Chilo Vora Dictated Date: 11/07/2024 06:41 ET Assigned Physician: Chilo Vora Reviewed and Electronically Signed By: Chilo Vora Signed Date: 11/07/2024 06:43 ET Workstation ID: [id number] Transcribed By: Self Edit Transcribed Date: 11/07/2024 06:41 ET Narrative 11/07/2024 6:43 AM EDT XR CHEST 1 VIEW HISTORY:58 years Female hypoxia COMPARISON:11/06/2024 Procedure Note Chilo Vora MD - 11/07/2024 XR CHEST 1 VIEW HISTORY:58 years Female hypoxia COMPARISON:11/06/2024 IMPRESSION: FINDINGS/IMPRESSION: Small right pleural effusion. Otherwise clear lungs. Unremarkableheart. Right-sided catheter is stable. Endotracheal tube is stable. Enterictube traverses the thorax. Report reviewed and signed by : Dr. Chilo Vora on 11/07/2024 6:43 AM.Workstation Name - [id number] -------- FINAL REPORT -------- Dictated By: Chilo Vora Dictated Date: 11/07/2024 06:41 ET Assigned Physician: Chilo Vora Reviewed and Electronically Signed By: Chilo Vora Signed Date: 11/07/2024 06:43 ET Workstation ID: [id number] Transcribed By: Self Edit Transcribed Date: 11/07/2024 06:41 ET Rich GILES IMG XR PROCEDURES Final Resul t * (ABNORMAL) Culture respiratory with gram stain (11/06/2024 10:51 PM EDT) Only the most recent of2 resultswithin the time period is included. Culture, Respiratory 2+ Klebsiella pneumoniae ssp pneumoniae(A) JAMMIE 11/10/2024 11:53 AM EDT [facility] Comment: The organism value for this result has been updated. These results have been appended to the previously preliminary verified report. This is an edited result. Previous organism was Gram negative bacilli on 11/09/2024 at 1023 EDT. Culture, Respiratory 2+ Klebsiella pneumoniae ssp pneumoniae(A) JAMMIE 11/10/2024 11:53 AM EDT [facility] Comment: Second colony type The organism value for this result has been updated. These results have been appended to the previously preliminary verified report. This is an edited result. Previous organism was Gram negative bacilli on 11/09/2024 at 1023 EDT. Gram Stain Result Greater than 25 WBCS and less than 10 Epithelial cells(A) 11/10/2024 11:53 AM EDT [facility] Gram Stain Result Many WBCs present(A) 11/10/2024 11:53 AM EDT [facility] Gram Stain Result Few Epithelial cells(A) 11/10/2024 11:53 AM EDT [facility] Gram Stain Result No organisms seen(A) 11/10/2024 11:53 AM EDT [facility] Sputum Lung structure / Unknown Non-blood Collection / Unknown 11/06/2024 10:51 PM EDT 11/06/2024 10:55 PM EDT Narrative Organism Antibiotic Method Susceptibility Klebsiella pneumoniae ssp pneumoniae Ampicillin JAMMIE >=32 ug/ml: Resistant Klebsiella pneumoniae ssp pneumoniae Ampicillin/Sulbactam JAMMIE 4 ug/ml: Susceptible Klebsiella pneumoniae ssp pneumoniae Cefazolin JAMMIE 2 ug/ml: Intermediate Klebsiella pneumoniae ssp pneumoniae Ceftriaxone JAMMIE <=0.25 ug/ml: Susceptible Klebsiella pneumoniae ssp pneumoniae Ciprofloxacin JAMMIE 0.12 ug/ml: Susceptible Klebsiella pneumoniae ssp pneumoniae Tobramycin JAMMIE <=1 ug/ml: Susceptible Klebsiella pneumoniae ssp pneumoniae Trimethoprim/Sulfamethoxazo le JAMMIE <=20 ug/ml: Susceptible Klebsiella pneumoniae ssp pneumoniae Ampicillin JAMMIE >=32 ug/ml: Resistant Klebsiella pneumoniae ssp pneumoniae Ampicillin/Sulbactam JAMMIE 4 ug/ml: Susceptible Klebsiella pneumoniae ssp pneumoniae Cefazolin JAMMIE 2 ug/ml: Intermediate Klebsiella pneumoniae ssp pneumoniae Ceftriaxone JAMMIE <=0.25 ug/ml: Susceptible Klebsiella pneumoniae ssp pneumoniae Ciprofloxacin JAMMIE 0.12 ug/ml: Susceptible Klebsiella pneumoniae ssp pneumoniae Tobramycin JAMMIE <=1 ug/ml: Susceptible Klebsiella pneumoniae ssp pneumoniae Trimethoprim/Sulfamethoxazo le JAMMIE <=20 ug/ml: Susceptible Sj Xiong MD LAB MICROBIOLOGY - GENERAL ORDERABLES Final Result [facility] [address] [place] [address], [place] [phone] * (ABNORMAL) Triglyceride Monitoring (11/06/2024 9:14 AM EDT) Only the most recent of3 resultswithin the time period is included. Triglycerides 189(H) <150 mg/dL LAB CHEMISTRY METHOD 11/06/2024 10:10 AM EDT [facility] Blood Venous blood specimen / Unknown Venipuncture / Unknown 11/06/2024 9:14 AM EDT 11/06/2024 9:39 AM EDT Rich GILES LAB BLOOD ORDERABLES Final Re sult Performing Organization Address City/[facility]/ZIP Co de Phone Number [facility] [address] [place] [address], * (ABNORMAL) Hemoglobin and hematocrit (11/03/2024 7:30 PM EDT) Hemoglobin 8.9(L) 12.5 - 16.0 g/dL LAB HEMETOLOGY METHOD 11/03/2024 7:44 PM EDT [facility] Comment:Verifed by repeat an alysis. Post Transfusion Specimen. Hematocrit 26.5(L) 37.0 - 47.0 % LAB HEMETOLOGY METHOD 11/03/2024 7:44 PM EDT [facility] Comment:Verifed by repeat an alysis. Post Transfusion Specimen. Blood Venous blood specimen / Unknown Venipuncture / Unknown 11/03/2024 7:30 PM EDT 11/03/2024 7:34 PM EDT Padma Farrell NP LAB BLOOD ORDERABLES Final Re sult Performing Organization Address City/[facility]/ZIP Co de Phone Number [facility] [address] [place] [address], [place] [phone] * Transfuse RBC (11/03/2024 1:26 PM EDT) Nat GILES BLOOD TRANSFUSION ORDER RENETTA Final Result * Type and screen (11/03/2024 6:23 AM EDT) ABO Group O 11/03/2024 7:33 AM EDT [facility] Rh Type Positive 11/03/2024 7:33 AM EDT [facility] Antibody Screen Negative 11/03/2024 7:33 AM EDT [facility] Blood Venous blood specimen / Unknown Venipuncture / Unknown 11/03/2024 6:23 AM EDT 11/03/2024 6:34 AM EDT Nat GILES LAB BLOOD BANK TEST ORD ERABLES Final Result Performing Organization Address City/[facility]/ZIP Co de Phone Number [facility] [address] [place] [address], [place] [phone] * Prepare RBC: 1 Units (11/03/2024 6:06 AM EDT) Pathologist [facility] Product Code [id number] 11/03/2024 11:01 AM EDT [facility] Unit Number [id number] 11/04/19 11:01 AM EDT [facility] Crossmatch Compatible 11/03/2024 7:58 AM EDT [facility] Dispense Status Transfused 11/03/2024 11:01 AM EDT [facility] Unit ABO Rh OPOS 11/03/2024 11:01 AM EDT [facility] Unit Expiration Date Time [id number] 11/03/2024 11:01 AM EDT [facility] Unit Blood Type 5100 11/03/2024 11:01 AM EDT [facility] Blood Venous blood specimen / Unknown 11/03/2024 6:06 AM EDT 11/03/2024 6:34 AM EDT Nat GILES BLOOD BANK PRODUCT ORDE RABLES Final Result [facility] [address] [place] [address], [place] [phone] * Activated partial thromboplastin time (11/03/2024 4:17 AM EDT) Only the most recent of3 resultswithin the time period is included. aPTT 27.4 25.0 - 37.0 sec LAB COAGULATION METHOD 11/03/2024 5:26 AM EDT [facility] Blood Venous blood specimen / Unknown Venipuncture / Unknown 11/03/2024 4:17 AM EDT 11/03/2024 4:55 AM EDT Nat GILES LAB BLOOD ORDERABLES Fi nal Result [facility] [address] [place] [address], [place] [phone] * Prothrombin time with INR (11/03/2024 4:17 AM EDT) Only the most recent of3 resultswithin the time period is included. Protime 11.9 10.5 - 13.3 sec LAB COAGULATION METHOD 11/03/2024 5:26 AM EDT [facility] INR 1.0 0.8 - 1.1 LAB COAGULATION METHOD 11/03/2024 5:26 AM EDT [facility] Blood Venous blood specimen / Unknown Venipuncture / Unknown 11/03/2024 4:17 AM EDT 11/03/2024 4:55 AM EDT Narrative [facility] - 11/03/2024 5:26 AM EDT Std. Therapy 2.0-3.0 INR High Dose Therapy 3.0-4.5 INR Ranges may vary depending on clinical indications and protocol. us Nat GILES LAB BLOOD ORDERABLES Fi nal Result [facility] [address] [place] [address], [place] [phone] * Continuous EEG (11/02/2024 6:09 AM EDT) Narrative [facility] - 11/02/2024 7:53 AM EDT Lamonte Sanford MD 11/02/2024 2:23 PM Long-term Monitoring/ Continuous Video Electroencephalography (LTM) Report Study start date, time: 11/01/2024; 7 AM Study end date, time: ; 7:30 AM Total duration: 24 hours and 30 minutes Clinical Information History: Steffi Bella is a 58 y.o. female past medical history significant for seizure disorder, chronic pain on opioids, obstructive sleep apnea, asthma,/COPD, current smoker, was transferred from [facility] with acute hypoxic respiratory failure secondary to pulmonary edema requiring intubation and concern for ACS. Per report patient went to [facility] on 10/27/2024 via EMS with respiratory distress she was intubated in the emergency room room. Checks x-ray showed pulmonary edema. CTA chest was negative for PE. But did show bilateral pulmonary edema. Reportedly patient underwent a TTE at outside hospital which showed severe hypokinesis to akinesis of mid to apical segments with hypokinesis of the base. Also had Aortic valve leaflets are mildly thickened. No aortic valve stenosis. Moderate to severe aortic valve regurgitation. 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 There is moderate to severe mitral regurgitation. There is moderate to severe mitral stenosis. Sedation: Antiseizure medication: Medications: Current Facility-Administered Medications: acetaminophen (TYLENOL) tablet 650 mg, 650 mg, g-tube, q6h PRN, TISHA Fink, 650 mg at 10/30/24 1359 aspirin chewable tablet 81 mg, 81 mg, oral, Daily, Jonny Che MD, 81 mg at 11/01/24 0920 atorvastatin (LIPITOR) tablet 80 mg, 80 mg, oral, Nightly, TISHA Otero, 80 mg at 10/31/24 205 cefTRIAXone (ROCEPHIN) 2 g in sterile water 20 mL IV syringe, 2 g, intravenous, q24h, TISHA Hull, 2 g at 11/01/24 1310 chlorhexidine (PERIDEX) 0.12 % solution 15 mL, 15 mL, Mouth/Throat, BID, TISHA Fink, 15 mL at 11/01/24 1610 dexmedeTOMIDine (PRECEDEX) 1,000 mcg in sodium chloride 0.9 % 250 mL (4 mcg/mL) infusion, 0.2-1.5 mcg/kg/hr, intravenous, Titrated, TISHA Hull, Last Rate: 14.85 mL/hr at 11/01/24 1823, 1.1 mcg/kg/hr at 11/01/24 1823 diazePAM (VALIUM) injection 5 mg, 5 mg, intravenous, q12h, TISHA Otero, 5 mg at 11/01/24 0904 gabapentin (NEURONTIN) capsule 600 mg, 600 mg, nasogastric tube, q8h BRIJESH, TISHA Otero, 600 mg at 11/01/24 1310 heparin (UFH) injection 5,000 Units, 5,000 Units, subcutaneous, q8h BRIJESH, TISHA Hull, 5,000 Units at 11/01/24 1311 ipratropium-albuteroL (DUONEB) 0.5-2.5 mg/3 mL nebulizer solution 3 mL, 3 mL, nebulization, q6h PRN, Ruth Alanis MD ipratropium-albuteroL (DUONEB) 0.5-2.5 mg/3 mL nebulizer solution 3 mL, 3 mL, nebulization, 4x daily, TISHA Otero, 3 mL at 11/01/24 1442 levETIRAcetam (KEPPRA) injection 500 mg, 500 mg, intravenous, BID, TISHA Otero, 500 mg at 11/01/24 0902 midazolam (VERSED) injection 1 mg, 1 mg, intravenous, q1h PRN, TISHA Fink, 1 mg at 11/01/24 1349 mupirocin (BACTROBAN) 2 % ointment, , Each Nostril, BID, Jonny Che MD, Given at 11/01/24 0902 naloxone (NARCAN) injection 0.04 mg, 0.04 mg, intravenous, PRN, TISHA Fink norepinephrine (LEVOPHED) infusion 8 mg/250 mL (premix), 0.01-0.99 mcg/kg/min, intravenous, Continuous, TISHA Hull, Last Rate: 6.08 mL/hr at 11/01/24 1800, 0.06 mcg/kg/min at 11/01/24 1800 pantoprazole (PROTONIX) injection 40 mg, 40 mg, intravenous, q24h, TISHA Hull, 40 mg at 11/01/24 0903 propofoL (DIPRIVAN) infusion 10 mg/mL, 10-80 mcg/kg/min, intravenous, Continuous, TISHA Hull, Held at 11/01/24 1507 Recording Techniques Instrumentation: A digital EEG was performed using the standard international 10-20 electrode placement and single lead EKG electrode with a sampling rate of 200 samples per second/per channel, at impedance levels less than 10 K Ohms. Montages: Standard 10-20 system montages Type of Study: Long-term video EEG monitoring Conditions of Recording: Awake - drowsy - sleep Results Background: The record is disorganized, non-reactive. There is no posterior dominant or anterior rhythm. No sleep architecture is seen. Background consists of mixture of polymorphic theta and delta activity. Epileptiform discharges: There are abundant bilateral periodic discharges (BIPDs) in the right greater than left hemispheres at 0.5 hz, without clear evolution or clinical changes. The morphology of the discharges are higher amplitude sharp waves or sharply contoured delta waves. No electrographic seizures seen Clinical events: None reported ' Classification of the findings: 1. BIPDs, bilateral (R > L), frontal, central, and temporal 2. Asymmetry, relative attenuation of fast activity, right, hemisphere 3. Disorganization 4. Reactive 5. Background slowing, theta >delta, generalized Impression This is an abnormal continuous video EEG indicative of severe right greater than left cerebral dysfunction. The bilateral independent periodic discharges (BIPDs) can be seen in a variety of clinical settings, including but not limited to metabolic disorders, medication toxicity. BIPDs can pose risk for seizures/diffuse cortical irritability - No electrographic seizures seen during this EEG monitoring Compared to prior EEG: BIPDs discharge burden has decreased to 0.5 to 1 Hz Okay to discontinue LTM Lamonte Sanford MD Epileptologist/ staff neurologist [facility] us Jose GILES NEUROLOGY ORDERABLES Final R esult [facility] * Continuous EEG (11/01/2024 6:19 AM EDT) Narrative JUAN CARLOSUS - 11/01/2024 9:51 AM EDT Lamonte Sanford MD 11/01/2024 12:18 PM Long-term Monitoring/ Continuous Video Electroencephalography (LTM) Report Study start date, time: 10/31/2024; 7:40 AM Study end date, time: 11/01/2024; 7 AM Total duration: 23 hours and 20 minutes Clinical Information History: Steffi Bella is a 58 y.o. female past medical history significant for seizure disorder, chronic pain on opioids, obstructive sleep apnea, asthma,/COPD, current smoker, was transferred from [facility] with acute hypoxic respiratory failure secondary to pulmonary edema requiring intubation and concern for ACS. Per report patient went to [facility] on 10/27/2024 via EMS with respiratory distress she was intubated in the emergency room room. Checks x-ray showed pulmonary edema. CTA chest was negative for PE. But did show bilateral pulmonary edema. Reportedly patient underwent a TTE at outside hospital which showed severe hypokinesis to akinesis of mid to apical segments with hypokinesis of the base. Also had Aortic valve leaflets are mildly thickened. No aortic valve stenosis. Moderate to severe aortic valve regurgitation. 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 There is moderate to severe mitral regurgitation. There is moderate to severe mitral stenosis. Sedation: Antiseizure medication: Medications: Current Facility-Administered Medications: acetaminophen (TYLENOL) tablet 650 mg, 650 mg, g-tube, q6h PRN, TISHA Fink, 650 mg at 10/30/24 1359 aspirin chewable tablet 81 mg, 81 mg, oral, Daily, Jonny Che MD, 81 mg at 10/31/24 1500 atorvastatin (LIPITOR) tablet 80 mg, 80 mg, oral, Nightly, TISHA Otero cefTRIAXone (ROCEPHIN) 2 g in sterile water 20 mL IV syringe, 2 g, intravenous, q24h, Reena Nicole MD, 2 g at 10/31/24 1223 chlorhexidine (PERIDEX) 0.12 % solution 15 mL, 15 mL, Mouth/Throat, BID, TISHA Fink, 15 mL at 10/31/24 1700 diazePAM (VALIUM) injection 5 mg, 5 mg, intravenous, q12h, TISHA Otero, 5 mg at 10/31/24 0844 fentaNYL (PF) (SUBLIMAZE) 50 mcg/mL infusion, 25-300 mcg/hr, intravenous, Continuous, TISHA Otero, Last Rate: 3.5 mL/hr at 10/31/24 1800, 175 mcg/hr at 10/31/24 1800 fentaNYL (PF) (SUBLIMAZE) injection 50 mcg, 50 mcg, intravenous, q15 min PRN, TISHA Otero gabapentin (NEURONTIN) capsule 600 mg, 600 mg, nasogastric tube, q8h BRIJESH, TISHA Otero, 600 mg at 10/31/24 1500 heparin (UFH) injection 5,000 Units, 5,000 Units, subcutaneous, q8h BRIJESH, TISHA Hull, 5,000 Units at 10/31/24 1404 ipratropium-albuteroL (DUONEB) 0.5-2.5 mg/3 mL nebulizer solution 3 mL, 3 mL, nebulization, q6h PRN, Ruth Alanis MD ipratropium-albuteroL (DUONEB) 0.5-2.5 mg/3 mL nebulizer solution 3 mL, 3 mL, nebulization, 4x daily, TISHA Otero, 3 mL at 10/31/24 1345 midazolam (VERSED) injection 1 mg, 1 mg, intravenous, q1h PRN, TISHA Fink, 1 mg at 10/31/24 1103 mupirocin (BACTROBAN) 2 % ointment, , Each Nostril, BID, Jonny Che MD, Given at 10/31/24 0844 naloxone (NARCAN) injection 0.04 mg, 0.04 mg, intravenous, PRN, TISHA Fink norepinephrine (LEVOPHED) infusion 8 mg/250 mL (premix), 0.01-0.99 mcg/kg/min, intravenous, Continuous, TISHA Fink, Last Rate: 15.19 mL/hr at 10/31/24 1800, 0.15 mcg/kg/min at 10/31/24 1800 pantoprazole (PROTONIX) injection 40 mg, 40 mg, intravenous, q24h, TISHA Hull, 40 mg at 10/31/24 0844 propofoL (DIPRIVAN) infusion 10 mg/mL, 10-80 mcg/kg/min, intravenous, Continuous, TISHA Fink, Last Rate: 3.24 mL/hr at 10/31/24 1800, 10 mcg/kg/min at 10/31/24 1800 Recording Techniques Instrumentation: A digital EEG was performed using the standard international 10-20 electrode placement and single lead EKG electrode with a sampling rate of 200 samples per second/per channel, at impedance levels less than 10 K Ohms. Montages: Standard 10-20 system montages Type of Study: Long-term video EEG monitoring Conditions of Recording: Awake - drowsy - sleep Results Background: The record is disorganized, non-reactive. There is no posterior dominant or anterior rhythm. No sleep architecture is seen. Background consists of mixture of polymorphic theta and delta activity. Epileptiform discharges: There are abundant bilateral periodic discharges (BIPDs) in the right greater than left hemispheres at 1 - 1.5Hz, without clear evolution or clinical changes. The morphology of the discharges are higher amplitude sharp waves or sharply contoured delta waves. No electrographic seizures seen Clinical events: None reported Classification of the findings: 1. BIPDs, bilateral (R > L), frontal, central, and temporal 2. Asymmetry, relative attenuation of fast activity, right, hemisphere 3. Disorganization 4. Reactive 5. Background slowing, theta >delta, generalized Impression This is an abnormal continuous video EEG indicative of severe right greater than left cerebral dysfunction. The bilateral independent periodic discharges (BIPDs) can be seen in a variety of clinical settings, including but not limited to metabolic disorders, medication toxicity. BIPDs can pose risk for seizures/diffuse cortical irritability - No electrographic seizures seen during this EEG monitoring Compared to prior EEG: Mild worsening of BIPD burden on 10/31/2024 and at times with some evolution. Antiseizure medication optimization advised Findings discussed with neurology team on the night of 10/31/2024 Lamonte Sanford MD Epileptologist/ staff neurologist [facility] us Jose GILES NEUROLOGY ORDERABLES Final R esult [facility] * XR Abdomen 1 View (10/31/2024 12:59 PM EDT) Only the most recent of4 resultswithin the time period is included. Anatomical Region Laterality Modality Body Radiographic Luda ging 10/31/2024 1:48 PM EDT Impressions 10/31/2024 1:52 PM EDT Enteric tube terminates in the stomach. Endotracheal tube tip terminates at the yue and should be retracted approximately 2 cm. Other lines and tubes as above. No significant interval change in pulmonary vascular congestion as well as bilateral pleural effusions with bibasilar and retrocardiac opacification compared to chest x-ray from one day earlier. Nonspecific, nonobstructive bowel gas pattern. Report reviewed and signed by : Dr. Johnny Mckeon on 10/31/2024 1:52 PM. Workstation Name - [id number] -------- FINAL REPORT -------- Dictated By: Johnny Mckeon Dictated Date: 10/31/2024 13:48 ET Assigned Physician: Johnny Mckeon Reviewed and Electronically Signed By: Johnny Mckeon Signed Date: 10/31/2024 13:52 ET Workstation ID: [id number] Transcribed By: Self Edit Transcribed Date: 10/31/2024 13:48 ET Narrative 10/31/2024 1:52 PM EDT CLINICAL HISTORY: abdominal distension Ngt. TECHNIQUE: Portable chest end abdominal x-ray. COMPARISON: Chest x-ray 10/30/2024 Abdominal x-ray 10/28/2024. FINDINGS: LINES AND TUBES: Interval removal of the right IJ [place]Mer catheter. Right IJ cordis sheath with tip projecting over the SVC. Endotracheal tube tip terminates at the yue and should be retracted approximately 2 cm. Interval removal of the right femoral approach catheter. Hannah catheter again overlying the pelvis. Enteric tube terminates in the stomach. CARDIAC SILHOUETTE: Stable cardiac silhouette. Calcified atherosclerosis over the aortic arch. LUNGS/PLEURA: Layering right pleural effusion with hazy opacification at the right lung base. Left retrocardiac opacification may reflect atelectasis or consolidation with small underlying effusion. Mild to moderate pulmonary vascular congestion with interstitial edema. No evidence of a pneumothorax. ABDOMEN/PELVIS: Nonspecific, nonobstructive bowel gas pattern. Moderate stool burden over the rectum. BONES: No aggressive or acute bony pathology. Partially visualized ON reduction internal fixation of the right proximal femur without evidence of hardware loosening. Procedure Note Johnny Mckeon MD - 10/31/2024 CLINICAL HISTORY: abdominal distension Ngt. TECHNIQUE: Portable chest end abdominal x-ray. COMPARISON: Chest x-ray 10/30/2024 Abdominal x-ray 10/28/2024. FINDINGS: LINES AND TUBES: Interval removal of the right IJ [place] catheter.Right IJ cordis sheath with tip projecting over the SVC. Endotrachealtube tip terminates at the yue and should be retracted approximately 2cm. Interval removal of the right femoral approach catheter. Foleycatheter again overlying the pelvis. Enteric tube terminates in thestomach. CARDIAC SILHOUETTE: Stable cardiac silhouette. Calcified atherosclerosisover the aortic arch. LUNGS/PLEURA: Layering right pleural effusion with hazy opacification at the right lungbase. Left retrocardiac opacification may reflect atelectasis or consolidationwith small underlying effusion. Mild to moderate pulmonary vascular congestion with interstitial edema. No evidence of a pneumothorax. ABDOMEN/PELVIS: Nonspecific, nonobstructive bowel gas pattern. Moderate stool burden overthe rectum. BONES: No aggressive or acute bony pathology. Partially visualized ONreduction internal fixation of the right proximal femur without evidenceof hardware loosening. IMPRESSION: Enteric tube terminates in the stomach. Endotracheal tube tip terminatesat the yue and should be retracted approximately 2 cm. Other lines andtubes as above. No significant interval change in pulmonary vascular congestion as well asbilateral pleural effusions with bibasilar and retrocardiac opacificationcompared to chest x-ray from one day earlier. Nonspecific, nonobstructive bowel gas pattern. Report reviewed and signed by : Dr. Johnny Mckeon on 10/31/2024 1:52 PM.Workstation Name - [id number] -------- FINAL REPORT -------- Dictated By: Johnny Mckeon Dictated Date: 10/31/2024 13:48 ET Assigned Physician: Johnny Mckeon Reviewed and Electronically Signed By: Johnny Mckeon Signed Date: 10/31/2024 13:52 ET Workstation ID: [id number] Transcribed By: Self Edit Transcribed Date: 10/31/2024 13:48 ET us Rich GILES IMG XR PROCEDURES Final Resul t * ZAMZAM COMPLETE W/COLOR FLOW AND SPECTRAL DOPPLER (10/31/2024 11:34 AM EDT) AV Regurgitation PHT 342 ms CV PACS HEMO AR Max Velocity 4.0 m/s CV PACS HEMO AV Peak Gradient 9 mmHg CV PACS HEMO AV Peak Nhan 1.5 m/s CV PACS HEMO AV Mean Gradient 5 mmHg CV PACS HEMO Ao VTI 22.7 cm CV PACS HEMO MR PISA Nyquist Nhan 29 cm/s CV PACS HEMO PISA MR Radius 0.70 cm CV PACS HEMO MR VTI 100.0 cm CV PACS HEMO MV Mean Gradient 8 mmHg CV PACS HEMO MV VTI 41.2 cm CV PACS HEMO MR PISA Max Velocity 4.0 m/s CV PACS HEMO MR Peak Gradient 64 mmHg CV PACS HEMO Mitral Valve Max Velocity 1.9 m/s CV PACS HEMO MV Peak Gradient 14 mmHg CV PACS HEMO MV Area Planimetry 1.2 cm2 CV PACS HEMO MV Area Planimetry 1.2 cm2 CV PACS HEMO PISA MR EROA 0.23 cm2 CV PACS HEMO MV Area PHT 2.7 cm2 CV PACS HEMO MV Deceleration [place] 5.8 m/s2 CV PACS HEMO MV PHT 82 ms CV PACS HEMO MV Regurgitation Fraction 47.0 % CV PACS HEMO PISA Regurgitant Volume 23 mL CV PACS HEMO BSA 1.42 m2 CV PACS HEMO Anatomical Region Laterality Modality Ultrasound Narrative 10/31/2024 1:54 PM EDT Left ventricle cavity size is normal. Left ventricular systolic function is moderately decreased with an ejection fraction of 30-35%. Apical akinesis seen. No evidence of thrombus. Right ventricle cavity is normal. Right ventricular systolic function is low normal. There is no thrombus in the left atrial appendage. Mitral valve leaflets and subvalvular apparatus are moderately thickened. 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 There is moderate to severe regurgitation. The regurgitant fraction is 47.0. The MV area is 1.2 cm2. There is moderate stenosis. MG was 8mmhg, but mildly tachycardic in 100s. The aortic valve is trileaflet. The leaflets are mildly thickened at the tips. There is severe regurgitation with a centrally directed jet. There is no significant stenosis. Left Ventricle Left ventricle cavity size is normal. Systolic function is moderately decreased with an ejection fraction of 30-35%. There is no thrombus. Right Ventricle Right ventricle cavity appears normal. Systolic function is low normal. Left Atrium The pulmonary veins demonstrate normal venous flow. There is no thrombus in the left atrial appendage. There is no atrial septal defect present. No patent foramen ovale visualized. Mitral Valve The leaflets are moderately thickened. 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 There is moderate to severe regurgitation. The regurgitant fraction is 47.0. The MV area is 1.2 cm2. There is moderate stenosis. There is no vegetation on the mitral valve. Tricuspid Valve Tricuspid valve structure is normal. There is mild regurgitation. There is no evidence of tricuspid valve stenosis. Aortic Valve The aortic valve is trileaflet. The leaflets are mildly thickened. There is severe regurgitation with a centrally directed jet. There is no significant stenosis. There is no vegetation present on the aortic valve. Pulmonic Valve Pulmonic valve structure is normal. There is trace pulmonic valve regurgitation. There is no evidence of pulmonic valve stenosis. Ascending Aorta The aorta appears normal in size. Mild plaque in the descending aorta. Pericardium Pericardium appears normal. There is no pericardial effusion. Study Details Overall the study quality was adequate. The underlying ECG rhythm was sinus tachycardia. The procedure, risks and alternatives were explained. Informed consent was obtained. The probe was inserted by the hazardous material technician. There was moderate probe insertion difficulty. General anesthesia was administered. The patient had no complications. Estimated blood loss: no blood loss. No specimens were collected. Wall Scoring Baseline Score Index: 2.29 The following segments are akinetic: apical anterior, apical septal, apical inferior, apical lateral and apex. The following segments are hypokinetic: basal anterior, basal anteroseptal, basal inferoseptal, basal inferior, basal inferolateral, basal anterolateral, mid anterior, mid anteroseptal, mid inferoseptal, mid inferior, mid inferolateral and mid anterolateral. us Jonny Che MD CV ECHO PROCEDURES Final Resul t * MR Brain wo Contrast (10/30/2024 6:37 PM EDT) Anatomical Region Laterality Modality Head and Neck Magnetic Resonan ce 10/30/2024 7:51 PM EDT Impressions 10/30/2024 8:31 PM EDT 1. 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 No hemorrhage or mass effect. No additional imaging is needed. Critical findings were conveyed to the referring provider through a secure messaging system, with confirmation of receipt documented. Report reviewed and signed by : Dr. Jordyn Mcarthur MD on 10/30/2024 8:31 PM. Workstation Name - [id number] -------- FINAL REPORT -------- Dictated By: Jordyn Mcarthur Dictated Date: 10/30/2024 19:51 ET Assigned Physician: Jordyn Mcarthur Reviewed and Electronically Signed By: Jordyn Mcarthur Signed Date: 10/30/2024 20:31 ET Workstation ID: [id number] Transcribed By: Self Edit Transcribed Date: 10/30/2024 20:25 ET Narrative 10/30/2024 8:31 PM EDT EXAMINATION: MRI brain without IV contrast CLINICAL INDICATION: Stroke, follow up COMPARISON: Same day CT TECHNIQUE: Multiplanar, multi-sequence MRI of brain was performed without IV contrast. FINDINGS: Extensive ischemic infarct involving the supratentorial and infratentorial brain, concerning for central-embolic etiology. No hemorrhage or mass effect. The parenchymal signal intensity is within normal limits for patient age. No hydrocephalus. No abnormal extra-axial fluid collections. Patent basal cisterns and foramen magnum. The calvarium appears intact. No air-fluid levels in the paranasal sinuses. The mastoid air cells are clear. Preserved major arterial flow voids indicating gross patency. Procedure Note Jordyn Mcarthur MD - 10/30/2024 EXAMINATION: MRI brain without IV contrast CLINICAL INDICATION: Stroke, follow up COMPARISON: Same day CT TECHNIQUE: Multiplanar, multi-sequence MRI of brain was performed without IVcontrast. FINDINGS: Extensive ischemic infarct involving the supratentorial and infratentorialbrain, concerning for central-embolic etiology. No hemorrhage or masseffect. The parenchymal signal intensity is within normal limits for patientage. No hydrocephalus. No abnormal extra-axial fluid collections. Patent basal cisterns and foramen magnum. The calvarium appears intact. No air-fluid levels in the paranasal sinuses. The mastoid air cells areclear. Preserved major arterial flow voids indicating gross patency. IMPRESSION: 1. Extensive ischemic infarct involving the supratentorial andinfratentorial brain, concerning for central-embolic etiology. Nohemorrhage or mass effect. No additional imaging is needed. Critical findings were conveyed to the referring provider through a securemessaging system, with confirmation of receipt documented. Report reviewed and signed by : Dr. Jordyn Mcarthur MD on 10/30/2024 8:31 PM.Workstation Name - [id number] -------- FINAL REPORT -------- Dictated By: Jordyn Mcarthur Dictated Date: 10/30/2024 19:51 ET Assigned Physician: Jordyn Mcarthur Reviewed and Electronically Signed By: Jordyn Mcarthur Signed Date: 10/30/2024 20:31 ET Workstation ID: [id number] Transcribed By: Self Edit Transcribed Date: 10/30/2024 20:25 ET Jose GILES IMG MRI PROCEDURES Final Res ult * Routine EEG (10/30/2024 4:51 PM EDT) Narrative [facility] - 10/30/2024 4:51 PM EDT Lamonte Sanford MD 10/30/2024 4:54 PM Continuous Electroencephalography (EEG) Report Recording Information: Recording 1 Start Time: Oct 30, 2024 14:32 PM End Time: Oct 30, 2024 16:48 PM Total EEG Duration: 02:16:00 (136 minutes) Recording Techniques Description of procedure: This is a Rapid EEG acquired with a [employer] EEG machine with 10 lead, 8 channel system positioned circumferentially, spaced according to the lateral chains of the 10-20 international system of EEG electrode placements. Vertex and paracentral recording electrodes are not included. The entire segments of the EEG were scanned by the attending physician. The [employer] System used the Clarity algorithm to analyze brain activity and detect seizures/status epilepticus to support reading of the EEG. Performed with userfox, Aldera Status Epilepticus Monitor, NTAP ICD-10 PCS Code = DF95C12 Video recorded: No Clinical Information History: Steffi Bella is a 58 y.o. female past medical history significant for seizure disorder, chronic pain on opioids, obstructive sleep apnea, asthma,/COPD, current smoker, was transferred from [facility] with acute hypoxic respiratory failure secondary to pulmonary edema requiring intubation and concern for ACS. Per report patient went to [facility] on 10/27/2024 via EMS with respiratory distress she was intubated in the emergency room room. Checks x-ray showed pulmonary edema. CTA chest was negative for PE. But did show bilateral pulmonary edema. Reportedly patient underwent a TTE at outside hospital which showed severe hypokinesis to akinesis of mid to apical segments with hypokinesis of the base. Also had Aortic valve leaflets are mildly thickened. No aortic valve stenosis. Moderate to severe aortic valve regurgitation. 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 There is moderate to severe mitral regurgitation. There is moderate to severe mitral stenosis. Pertinent Medications and Treatments Anti-seizure medications: Sedatives: Medications: Current Facility-Administered Medications: acetaminophen (TYLENOL) tablet 650 mg, 650 mg, g-tube, q6h PRN, TISHA Fink, 650 mg at 10/30/24 1359 cefTRIAXone (ROCEPHIN) 2 g in sterile water 20 mL IV syringe, 2 g, intravenous, q24h, Reena Nicole MD, 2 g at 10/30/24 1255 chlorhexidine (PERIDEX) 0.12 % solution 15 mL, 15 mL, Mouth/Throat, BID, TISHA Fink, 15 mL at 10/30/24 1537 diazePAM (VALIUM) injection 5 mg, 5 mg, intravenous, q12h, TISHA Otero, 5 mg at 10/30/24 0844 fentaNYL (PF) (SUBLIMAZE) 50 mcg/mL infusion, 25-300 mcg/hr, intravenous, Continuous, TISHA Otero, Last Rate: 3.5 mL/hr at 10/30/24 1600, 175 mcg/hr at 10/30/24 1600 fentaNYL (PF) (SUBLIMAZE) injection 50 mcg, 50 mcg, intravenous, q15 min PRN, TISHA Otero heparin (UFH) injection 5,000 Units, 5,000 Units, subcutaneous, q8h BRIJESH, TISHA Hull, 5,000 Units at 10/30/24 1353 ipratropium-albuteroL (DUONEB) 0.5-2.5 mg/3 mL nebulizer solution 3 mL, 3 mL, nebulization, q6h PRN, Ruth Alanis MD ipratropium-albuteroL (DUONEB) 0.5-2.5 mg/3 mL nebulizer solution 3 mL, 3 mL, nebulization, 4x daily, TISHA Otero, 3 mL at 10/30/24 1400 midazolam (VERSED) injection 1 mg, 1 mg, intravenous, q1h PRN, TISHA Fink, 1 mg at 10/29/24 1311 naloxone (NARCAN) injection 0.04 mg, 0.04 mg, intravenous, PRN, TISHA Fink norepinephrine (LEVOPHED) infusion 8 mg/250 mL (premix), 0.01-0.99 mcg/kg/min, intravenous, Continuous, TISHA Fink, Last Rate: 10.13 mL/hr at 10/30/24 1651, 0.1 mcg/kg/min at 10/30/24 1651 pantoprazole (PROTONIX) injection 40 mg, 40 mg, intravenous, q24h, TISHA Hull, 40 mg at 10/30/24 0808 propofoL (DIPRIVAN) infusion 10 mg/mL, 10-80 mcg/kg/min, intravenous, Continuous, TISHA Fink, Last Rate: 6.48 mL/hr at 10/30/24 1632, 20 mcg/kg/min at 10/30/24 1632 vancomycin (VANCOCIN) 750 mg in sodium chloride 0.9 % 250 mL IVPB, 15 mg/kg, intravenous, q12h, TISHA Otero, Stopped at 10/30/24 1246 Results Background: The record is disorganized, non-reactive. There is no posterior dominant or anterior rhythm. No sleep architecture is seen. Background consists of mixture of polymorphic theta and delta activity. Epileptiform discharges: There are abundant bilateral periodic discharges (BIPDs) in the right greater than left hemispheres at 1 - 1.5Hz, without clear evolution or clinical changes. The morphology of the discharges are higher amplitude sharp waves or sharply contoured delta waves. No electrographic seizures seen Clinical events: None reported Classification of the findings: 1. BIPDs, bilateral (R > L), frontal, central, and temporal 2. Asymmetry, relative attenuation of fast activity, right, hemisphere 3. Disorganization 4. Reactive 5. Background slowing, theta >delta, generalized Impression This is an abnormal continuous EEG indicative of severe right greater than left cerebral dysfunction. The bilateral independent periodic discharges (BIPDs) can be seen in a variety of clinical settings, including but not limited to metabolic disorders, medication toxicity. However, BIPDs in general frequently associated with seizures. Correlation advised - No electrographic seizures seen during this EEG monitoring Lamonte Sanford MD Epileptologist/ staff neurologist [facility] us Jose GILES NEUROLOGY ORDERABLES Final R esult [facility] * Mixed venous blood gas (10/30/2024 2:39 PM EDT) Only the most recent of6 resultswithin the time period is included. pH, Mixed Venous Blood 7.35 7.35 - 7.45 pH LAB BLOOD GAS METHOD 10/30/2024 2:53 PM EDT [facility] Carbon Dioxide Mixed Venous 45 mmHg LAB BLOOD GAS METHOD 10/30/2024 2:53 PM EDT [facility] Comment:No established refer ence range. PO2 Mixed Venous 42 mmHg LAB BLOOD GAS METHOD 10/30/2024 2:53 PM EDT [facility] Comment:No established refer ence range. Bicarbonate Mixed Venous 23.5 mmol/L LAB BLOOD GAS METHOD 10/30/2024 2:53 PM EDT [facility] Comment:No established refer ence range. Oxygen Saturation Mixed Venous 72.6 % LAB BLOOD GAS METHOD 10/30/2024 2:53 PM EDT [facility] Comment:No established refer ence range. Base Excess Mixed Venous -1.1 mmol/L LAB BLOOD GAS METHOD 10/30/2024 2:53 PM EDT [facility] Comment:No established refer ence range. Blood Mixed venous blood specimen / Unknown Venipuncture / Unknown 10/30/2024 2:39 PM EDT 10/30/2024 2:50 PM EDT Jose GILES LAB BLOOD ORDERABLES Final R esult [facility] [address] [place] [address], * CT Cerebral Perfusion w Contrast (10/30/2024 7:18 AM EDT) Anatomical Region Laterality Modality Computed Tomogra phy 10/30/2024 7:54 AM EDT Impressions 10/30/2024 7:56 AM EDT Impression: Old right cerebellar infarct is noted. No acute intracranial abnormality. Report reviewed and signed by : Dr. Delmis Harper on 10/30/2024 7:56 AM. Workstation Name - [id number] -------- FINAL REPORT -------- Dictated By: Delmis Harper Dictated Date: 10/30/2024 07:54 ET Assigned Physician: Delmis Harper Reviewed and Electronically Signed By: Delmis Harper Signed Date: 10/30/2024 07:56 ET Workstation ID: [id number] Transcribed By: Self Edit Transcribed Date: 10/30/2024 07:54 ET Narrative 10/30/2024 7:56 AM EDT EXAM: CT cerebral perfusion with contrast HISTORY: Neuro deficit, acute, stroke suspected. COMPARISON: None. TECHNIQUE: Dynamic axial CT slices through the brain were obtained post intravenous contrast injection. There was generation of a number of cerebral perfusion maps on a independent workstation. These included cerebral blood flow, cerebral blood volume, mean transit time, and Tmax CONTRAST: The patient was injected intravenously with 100 ml of Isovue-370. PATIENT DOSE: Individualized radiation dose reduction techniques were employed. FINDINGS: Old right cerebellar infarct is noted. No acute intracranial abnormality. Procedure Note Delmis Harper MD - 10/30/2024 EXAM: CT cerebral perfusion with contrast HISTORY: Neuro deficit, acute, stroke suspected. COMPARISON: None. TECHNIQUE: Dynamic axial CT slices through the brain were obtained postintravenous contrast injection. There was generation of a number ofcerebral perfusion maps on a independent workstation. These includedcerebral blood flow, cerebral blood volume, mean transit time, and Tmax CONTRAST: The patient was injected intravenously with 100 ml ofIsovue-370. PATIENT DOSE: Individualized radiation dose reduction techniques wereemployed. FINDINGS: Old right cerebellar infarct is noted. No acute intracranialabnormality. IMPRESSION: Impression: Old right cerebellar infarct is noted. No acute intracranialabnormality. Report reviewed and signed by : Dr. Delmis Harper on 10/30/2024 7:56 AM.Workstation Name - [id number] -------- FINAL REPORT -------- Dictated By: Delmis Harper Dictated Date: 10/30/2024 07:54 ET Assigned Physician: Delmis Harper Reviewed and Electronically Signed By: Delmis Harper Signed Date: 10/30/2024 07:56 ET Workstation ID: [id number] Transcribed By: Self Edit Transcribed Date: 10/30/2024 07:54 ET Rich GILES IMJohn CT PROCEDURES Final Resul t * CT Head Stroke wo Contrast (10/30/2024 7:12 AM EDT) Anatomical Region Laterality Modality Head and Neck Computed Tomogra phy 10/30/2024 7:45 AM EDT Impressions 10/30/2024 7:47 AM EDT 1. Negative for acute intracranial process. 2. Old right cerebellar infarct. 3. Mild bilateral sphenoid and ethmoid sinus disease. Report reviewed and signed by : Dr. Delmis Harper on 10/30/2024 7:47 AM. Workstation Name - [id number] -------- FINAL REPORT -------- Dictated By: Delmis Harper Dictated Date: 10/30/2024 07:45 ET Assigned Physician: Delmis Harper Reviewed and Electronically Signed By: Delmis Harper Signed Date: 10/30/2024 07:47 ET Workstation ID: [id number] Transcribed By: Self Edit Transcribed Date: 10/30/2024 07:45 ET Narrative 10/30/2024 7:[address] OF THE BRAIN WITHOUT IV CONTRAST CLINICAL HISTORY: Neuro deficit, acute, stroke suspected Stroke, follow up TECHNIQUE: Exam is performed without intravenous contrast. Per PQRS, CT exam is performed using one or more of the following dose reduction techniques: Automated exposure control, adjustment of the mA and/or KV according to patient size, or use of iterative reconstruction techniques. COMPARISON: 10/30/2024 FINDINGS: Negative for acute bleed. Negative for acute infarct. Normal sized ventricles. Old right cerebellar infarct. Intracranial vascular calcifications. Extra-axial compartments are normal. Mild bilateral sphenoid and ethmoid sinus disease. Mastoid air spaces are clear. Middle ear cavities are clear. Calvarium is intact. Scalp is unremarkable. Procedure Note Delmis Harper MD - 10/30/2024 CT OF THE BRAIN WITHOUT IV CONTRAST CLINICAL HISTORY: Neuro deficit, acute, stroke suspected Stroke, follow up TECHNIQUE: Exam is performed without intravenous contrast. Per PQRS, CT exam is performed using one or more of the following dosereduction techniques: Automated exposure control, adjustment of the mAand/or KV according to patient size, or use of iterative reconstructiontechniques. COMPARISON: 10/30/2024 FINDINGS: Negative for acute bleed. Negative for acute infarct. Normal sized ventricles. Old right cerebellar infarct. Intracranialvascular calcifications. Extra-axial compartments are normal. Mild bilateral sphenoid and ethmoid sinus disease. Mastoid air spaces are clear. Middle ear cavities are clear. Calvarium is intact. Scalp is unremarkable. IMPRESSION: 1. Negative for acute intracranial process. 2. Old right cerebellar infarct. 3. Mild bilateral sphenoid and ethmoid sinus disease. Report reviewed and signed by : Dr. Delmis Harper on 10/30/2024 7:47 AM.Workstation Name - [id number] -------- FINAL REPORT -------- Dictated By: Delmis Harper Dictated Date: 10/30/2024 07:45 ET Assigned Physician: Delmis Harper Reviewed and Electronically Signed By: Delmis Harper Signed Date: 10/30/2024 07:47 ET Workstation ID: [id number] Transcribed By: Self Edit Transcribed Date: 10/30/2024 07:45 ET us Rich GILES IMG CT PROCEDURES Final Resul t * MT CATHETERIZATION/CANNULATION ARTERIAL SAMPLE/MONITORING/TRANSFUSION PERC (10/29/2024 10:22 AM EDT) Only the most recent of2 resultswithin the time period is included. Narrative Jonny Che MD - 10/29/2024 10:22 AM EDT TISHA Otero 10/29/2024 10:23 AM Insert arterial line Date/Time: 10/29/2024 10:22 AM Performed by: TISHA Otero Authorized by: TISHA Otero Consent: Consent obtained: Emergent situation Fisher protocol: Test results available: yes Imaging studies available: yes Required blood products, implants, devices, and special equipment available: yes Site/side marked: yes Immediately prior to procedure, a time out was called: yes Patient identity confirmed: Anonymous protocol, patient vented/unresponsive and provided demographic data Indications: Indications: hemodynamic monitoring and multiple ABGs Pre-procedure details: Skin preparation: Chlorhexidine Preparation: Patient was prepped and draped in sterile fashion Anesthesia: Anesthesia method: Local infiltration Local anesthetic: Lidocaine 1% w/o epi Procedure details: Location: L radial Horace's test performed: yes Horace's test abnormal: no Needle gauge: 20 G Placement technique: Seldinger and ultrasound guided Number of attempts: 1 Transducer: waveform confirmed Post-procedure details: Post-procedure: Biopatch applied, secured with tape, sterile dressing applied and sutured CMS: Normal and unchanged Procedure completion: Tolerated well, no immediate complications Comments: Rich Lassow, PA-C Cardiac Surgery / Cardiac Intensive Care [facility] Rich GILES IV THERAPY ORDERABLES Final R esult * Lactate, with reflex (10/29/2024 4:17 AM EDT) Only the most recent of5 resultswithin the time period is included. [facility] LACTIC ACID 1.3 0.5 - 2.2 mmol/L LAB BLOOD GAS METHOD 10/29/2024 4:31 AM EDT [facility] Blood Venous blood specimen / Unknown Venipuncture / Unknown 10/29/2024 4:17 AM EDT 10/29/2024 4:22 AM EDT Nat GILES LAB BLOOD ORDERABLES Fi nal Result [facility] [address] [place] [id number], [place] [phone] * (ABNORMAL) Troponin I high sensitivity (10/29/2024 4:17 AM EDT) Only the most recent of6 resultswithin the time period is included. [facility] High Sensitivity Troponin I 725(HH) 0 - 14 ng/L LAB CHEMISTRY METHOD 10/29/2024 5:18 AM EDT [facility] Blood Venous blood specimen / Unknown Venipuncture / Unknown 10/29/2024 4:17 AM EDT 10/29/2024 4:22 AM EDT Narrative [facility] - 10/29/2024 5:18 AM EDT HSTnI results stratify to HIGH RISK category if any value >100 ng/L or delta at 1 hour is greater than or equal to 15 ng/L (male and female). Note: Delta values are not applicable if symptoms began more than 12 hours pre-arrival. Risk stratification should include the calculation of the HEART score. The testing method is an immunoenzymatic assay manufactured by [employer] and performed on the [employer] DxI 800. Reena Nicole MD LAB BLOOD ORDERABLES Final Re sult [facility] [address] [place] [address], [place] [phone] * ECG-Annotated (10/29/2024) Only the most recent of2 resultswithin the time period is included. Provider Onbase ECG ORDERABLES Final Result * MT INSERTION NON-TUNNELED CENTRALLY INSERTED CENTRAL VENOUS CATH 5 YRS/> (10/28/2024 9:20 PM EDT) Narrative Reena Nicole MD - 10/28/2024 9:20 PM EDT TISHA Fink 10/28/2024 9:23 PM Central Line Date/Time: 10/28/2024 9:20 PM Performed by: TISHA Fink Authorized by: TISHA Fink Consent: Consent obtained: Written Consent given by: daughter. Risks, benefits, and alternatives were discussed: yes Risks discussed: Arterial puncture, incorrect placement, nerve damage, bleeding, infection and pneumothorax Alternatives discussed: No treatment Fisher protocol: Procedure explained and questions answered to patient or proxy's satisfaction: yes Relevant documents present and verified: yes Test results available: yes Imaging studies available: yes Required blood products, implants, devices, and special equipment available: yes Site/side marked: yes Immediately prior to procedure, a time out was called: yes Patient identity confirmed: Arm band Pre-procedure details: Indication(s): central venous access Hand hygiene: Hand hygiene performed prior to insertion Sterile barrier technique: All elements of maximal sterile technique followed Skin preparation: Chlorhexidine Skin preparation agent: Skin preparation agent completely dried prior to procedure Sedation: Sedation type: Moderate sedation Anesthesia: Anesthesia method: Local infiltration Local anesthetic: Lidocaine 1% w/o epi Procedure details: Location: R internal jugular Patient position: Supine Procedural supplies: Cordis Catheter size: 7 Fr Landmarks identified: yes Ultrasound guidance: no Number of attempts: 1 Successful placement: yes Post-procedure details: Post-procedure: Dressing applied and line sutured Assessment: Blood return through all ports, no pneumothorax on x-ray, free fluid flow and placement verified by x-ray Procedure completion: Tolerated Comments: Guide wire removed from field witnessed by Shante us Nat GILES IN CLINIC/BEDSIDE ORDER RENETTA Final Result * ED INTUBATION (10/28/2024 8:42 PM EDT) Narrative Christian Hilton MD - 10/28/2024 8:42 PM EDT Christian Hilton MD 10/28/2024 8:50 PM Intubation Date/Time: 10/28/2024 8:42 PM Performed by: Christian Hilton MD Authorized by: Jonny Alonzo MD Consent: Consent obtained: Emergent situation Pre-procedure details: Indications: altered consciousness, respiratory distress and respiratory failure Patient status: Altered mental status Look externally: no concerns Obstruction: none Pharmacologic strategy: RSI Induction agents: Etomidate Paralytics: Rocuronium Procedure details: Preoxygenation: Bag valve mask CPR in progress: no Number of attempts: 1 Successful intubation attempt details: Intubation method: Oral Intubation technique: video assisted Laryngoscope blade: Mac 3 Bougie used: no Tube size (mm): 7.5 Tube type: Cuffed Tube visualized through cords: yes Placement assessment: ETT at teeth/gumline (cm): 23 Tube secured with: ETT ann Breath sounds: Equal Placement verification: chest rise, colorimetric ETCO2, CXR verification, equal breath sounds, tube exhalation and waveform ETCO2 CXR findings: Low Tube repositioned: yes Post-procedure details: Procedure completion: Tolerated well, no immediate complications Comments: Acute respiratory failure with hypoxia requiring intubation with ventilation and sedation management, hypokalemia requiring IV potassium, flash pulmonary edema requiring IV Lasix, NSTEMI requiring heparin drip, complex medical decision making, high risk of and deterioration, separate from other billable procedures us Jonny Alonzo MD IN CLINIC/BEDSIDE ORDERABLES Fin al Result * LEFT HEART CATH / CORONARY ANGIOGRAPHY, RIGHT HEART CATH (10/28/2024 3:37 PM EDT) Anatomical Region Laterality Modality X-Ray Angiograph y Narrative 10/28/2024 3:44 PM EDT Nonobstructive coronary disease Elevated LVEDP (24 mmHg) Elevated right heart pressures with severe pulmonary hypertension and wedge 45-50 mmHg Impaired cardiac output Patient not a candidate for intra-aortic balloon pump or Impella support device due to aortic valve insufficiency Recommend ZAMZAM for closer examination of valvular function/incompetence Coronary Findings Diagnostic Dominance: Right Left Main: The vessel is angiographically normal. Left Anterior Descending: Proximal 30. The LAD gives off a medium size diagonal branch with 30% narrowing in the midportion. Left Circumflex: Proximal and mid 30. The 1st and 2nd marginal branches are free of significant atherosclerosis. A small size third marginal branch is narrowed 80% in the mid region. Right Coronary Artery: Dominant. Proximal 30-40. Mid 40 over a long interval. Small caliber PDA and 2 small PLV branches without significant disease. Intervention No interventions have been documented. Cardiac Cath Measurements 1 Pressure measurements: LV pressure = 140/18 mmHg. LVED pressure = 24 mmHg. Cardiac Cath Measurements 2 O2 Sats: PA O2 sat = 53%. RA O2 sat = 55%. Cardiac Cath Measurements 3 Pressure measurements: RA pressure = 18 mmHg. RV pressure = 70/16 mmHg. PA pressure = 74/47 mmHg. PCW pressure = 45 mmHg. LVED pressure = 24 mmHg. Calculated measurements: Linda Cardiac output = 3.6 L/min. Linda Cardiac index = 2.3 L/min/m2. Clinical Background 58-year-old female with a PMH of seizure disorder, chronic pain on opioids, DANILO, asthma/COPD, current smoker, who was transferred from [facility] with acute hypoxic respiratory failure 2/2 pulmonary edema requiring intubation and concern for ACS. The patient was transported for emergent coronary angiography on intravenous pressor support (Levophed). Review of echocardiogram demonstrates ejection fraction 20-25% with severe hypokinesis/akinesis of mid anteroseptal/apical/inferolateral apical regions, moderate to severe aortic insufficiency, thickened mitral valve with moderate to severe mitral insufficiency. Procedure Details After explanation of the risks and benefits of the procedure, informed consent was obtained. The right groin was prepped and draped in the standard manner. US guided 2% mepivocaine was used to infiltrate the right groin. A 6 Sudanese sheath was placed right femoral vein. 6 Sudanese [place] catheter performed right heart catheterization. The 6 Sudanese venous sheath was sutured in place postprocedure for large-bore venous access. A 6F sheath was placed in the right femoral artery using the modified Seldinger technique. Coronary angiography was performed in multiple projections. After all catheters and the sheath were removed, adequate hemostasis was achieved- Perclose. The patient returned to the CICU. The case was uncomplicated. Malachi Garcia DO CV CARDIAC CATH PROCEDURES F inal Result * MT INSERTION NON-TUNNELED CENTRALLY INSERTED CENTRAL VENOUS CATH 5 YRS/>, HC INSERTION/REMOVAL/REPLACEMENT CATH (10/28/2024 1:33 PM EDT) Jonny Jackson MD - 10/28/2024 1:33 PM EDT Jonny Alonzo MD 10/28/2024 1:33 PM Central Line Date/Time: 10/28/2024 1:33 PM Performed by: Jonny Alonzo MD Authorized by: Jonny Alonzo MD Consent: Consent obtained: Emergent situation Fisher protocol: Patient identity confirmed: Arm band Pre-procedure details: Indication(s): central venous access, hemodynamic monitoring and insufficient peripheral access Hand hygiene: Hand hygiene performed prior to insertion Sterile barrier technique: All elements of maximal sterile technique followed Skin preparation: Chlorhexidine Skin preparation agent: Skin preparation agent completely dried prior to procedure Sedation: Sedation type: None Anesthesia: Anesthesia method: Local infiltration Local anesthetic: Lidocaine 1% w/o epi Procedure details: Location: R internal jugular Site selection rationale: Ease of access, clean site Patient position: Reverse Trendelenburg Procedural supplies: Triple lumen Catheter size: 7 Fr Landmarks identified: yes Ultrasound guidance: yes Ultrasound guidance timing: prior to insertion and real time Sterile ultrasound techniques: Sterile gel and sterile probe covers were used Number of attempts: 1 Successful placement: yes Post-procedure details: Post-procedure: Dressing applied and line sutured Assessment: Blood return through all ports, no pneumothorax on x-ray, free fluid flow and placement verified by x-ray Procedure completion: Tolerated well, no immediate complications Jonny Alonzo MD IN CLINIC/BEDSIDE ORDERABLES Fin al Result * Bilirubin duplicate procedure to order (10/28/2024 1:11 PM EDT) Total Bilirubin 0.4 0.3 - 1.0 mg/dL LAB CHEMISTRY METHOD 10/28/2024 1:54 PM EDT [facility] Bilirubin, Direct 0.0 0.0 - 0.2 mg/dL LAB CHEMISTRY METHOD 10/28/2024 1:54 PM EDT [facility] Bilirubin, Indirect 0.4 mg/dL LAB CHEMISTRY METHOD 10/28/2024 1:54 PM EDT [facility] Blood Venous blood specimen / Unknown Venipuncture / Unknown 10/28/2024 1:11 PM EDT 10/28/2024 1:19 PM EDT Nat GILES LAB BLOOD ORDERABLES Fi nal Result Performing Organization Address City/[facility]/ZIP Co de Phone Number [facility] [address] [place] [address], [place] [phone] * (ABNORMAL) Lipid panel with reflex to direct LDL (10/28/2024 1:11 PM EDT) Cholesterol 173 0 - 200 mg/dL LAB CHEMISTRY METHOD 10/28/2024 1:54 PM EDT [facility] Triglycerides 199(H) <150 mg/dL LAB CHEMISTRY METHOD 10/28/2024 1:54 PM EDT [facility] HDL 46 37 - 92 mg/dL LAB CHEMISTRY METHOD 10/28/2024 1:54 PM EDT [facility] LDL Calculated 87 50 - 130 mg/dL LAB CHEMISTRY METHOD 10/28/2024 1:54 PM EDT [facility] VLDL Cholesterol Barney 39.8 mg/dL LAB CHEMISTRY METHOD 10/28/2024 1:54 PM EDT [facility] Comment:No established refer ence range. Blood Venous blood specimen / Unknown Venipuncture / Unknown 10/28/2024 1:11 PM EDT 10/28/2024 1:19 PM EDT Nat GILES LAB BLOOD ORDERABLES Fi nal Result [facility] [address] [place] [address], [place] [phone] * (ABNORMAL) CBC auto differential (10/28/2024 1:11 PM EDT) Only the most recent of2 resultswithin the time period is included. WBC 11.4(H) 4.0 - 10.5 K/mcL LAB HEMETOLOGY METHOD 10/28/2024 1:23 PM EDT [facility] RBC 3.20(L) 4.20 - 5.40 M/mcL LAB HEMETOLOGY METHOD 10/28/2024 1:23 PM EDT [facility] Hemoglobin 9.5(L) 12.5 - 16.0 g/dL LAB HEMETOLOGY METHOD 10/28/2024 1:23 PM EDT [facility] Hematocrit 28.7(L) 37.0 - 47.0 % LAB HEMETOLOGY METHOD 10/28/2024 1:23 PM EDT [facility] MCV 89.5 78.0 - 100.0 FL LAB HEMETOLOGY METHOD 10/28/2024 1:23 PM EDT [facility] MCH 29.8 25.0 - 33.0 pcg LAB HEMETOLOGY METHOD 10/28/2024 1:23 PM EDT [facility] MCHC 33.3 32.0 - 36.0 g/dL LAB HEMETOLOGY METHOD 10/28/2024 1:23 PM EDT [facility] RDW 14.7 12.1 - 16.2 % LAB HEMETOLOGY METHOD 10/28/2024 1:23 PM EDT [facility] Platelets 243 150 - 450 K/mcL LAB HEMETOLOGY METHOD 10/28/2024 1:23 PM EDT [facility] MPV 8.6 7.4 - 11.4 FL LAB HEMETOLOGY METHOD 10/28/2024 1:23 PM EDT [facility] Neutrophils Relative 69.6 44.0 - 74.0 % LAB HEMETOLOGY METHOD 10/28/2024 1:23 PM EDT [facility] Lymphocytes Relative 18.2(L) 20.0 - 48.0 % LAB HEMETOLOGY METHOD 10/28/2024 1:23 PM EDT [facility] Monocytes Relative 11.7 2.0 - 12.0 % LAB HEMETOLOGY METHOD 10/28/2024 1:23 PM EDT [facility] Eosinophils Relative 0.2 0.0 - 6.0 % LAB HEMETOLOGY METHOD 10/28/2024 1:23 PM EDT [facility] Basophils Relative 0.3 0.0 - 2.0 % LAB HEMETOLOGY METHOD 10/28/2024 1:23 PM EDT [facility] Neutrophils Absolute 7.90(H) 1.80 - 7.80 K/mcL LAB HEMETOLOGY METHOD 10/28/2024 1:23 PM EDT [facility] Lymphocytes Absolute 2.10 1.00 - 3.20 K/mcL LAB HEMETOLOGY METHOD 10/28/2024 1:23 PM EDT [facility] Monocytes Absolute 1.30(H) 0.00 - 0.80 K/mcL LAB HEMETOLOGY METHOD 10/28/2024 1:23 PM EDT [facility] Eosinophils Absolute 0.00 0.00 - 0.50 K/mcL LAB HEMETOLOGY METHOD 10/28/2024 1:23 PM EDT [facility] Basophils Absolute 0.00 0.00 - 0.20 K/mcL LAB HEMETOLOGY METHOD 10/28/2024 1:23 PM EDT [facility] Blood Venous blood specimen / Unknown Venipuncture / Unknown 10/28/2024 1:11 PM EDT 10/28/2024 1:18 PM EDT Nat GILES LAB BLOOD ORDERABLES Fi nal Result Performing Organization Address City/[facility]/ZIP Co de Phone Number [facility] [address] [place] [address], [place] [phone] * (ABNORMAL) Hemoglobin A1c (10/28/2024 1:11 PM EDT) Hemoglobin A1C 5.8(H) <5.7 % LAB CHEMISTRY METHOD 10/29/2024 12:16 AM EDT [facility] Mean Bld Glu Estim. 120 mg/dL LAB CHEMISTRY METHOD 10/29/2024 12:16 AM EDT [facility] Blood Venous blood specimen / Unknown Venipuncture / Unknown 10/28/2024 1:11 PM EDT 10/28/2024 2:38 PM EDT Narrative [facility] - 10/29/2024 12:16 AM EDT ADA Guidelines: Increased risk Diabetes Mellitus A1C 5.7 - 6.4% and Fasting Blood Glucose 100 - 125 mg/dl Diabetes Mellitus: A1C >6.5% and Fasting Blood Glucose >125 mg/dl Nat GILES LAB BLOOD ORDERABLES Fi nal Result Performing Organization Address [facility]/ZIP Co de Phone Number [facility] [address] [place] [id number], [place] [phone] * (ABNORMAL) Comprehensive metabolic panel (10/28/2024 1:11 PM EDT) Only the most recent of2 resultswithin the time period is included. Sodium 142 135 - 145 mmol/L LAB CHEMISTRY METHOD 10/28/2024 1:54 PM EDT [facility] Potassium 3.8 3.5 - 5.1 mmol/L LAB CHEMISTRY METHOD 10/28/2024 1:54 PM EDT [facility] Chloride 112(H) 98 - 107 mmol/L LAB CHEMISTRY METHOD 10/28/2024 1:54 PM EDT [facility] CO2 21(L) 24 - 32 mmol/L LAB CHEMISTRY METHOD 10/28/2024 1:54 PM EDT [facility] Anion Gap 9 5 - 14 LAB CHEMISTRY METHOD 10/28/2024 1:54 PM EDT [facility] Glucose 131(H) 70 - 99 mg/dL LAB CHEMISTRY METHOD 10/28/2024 1:54 PM EDT [facility] BUN 15 7 - 17 mg/dL LAB CHEMISTRY METHOD 10/28/2024 1:54 PM EDT [facility] Creatinine 0.90 0.50 - 1.00 mg/dL LAB CHEMISTRY METHOD 10/28/2024 1:54 PM EDT [facility] eGFR 73 >=60 mL/min/1. 73m2 LAB CHEMISTRY METHOD 10/28/2024 1:54 PM EDT [facility] Comment:Calculation based on the Chronic Kidney Disease Epidemiology Collaboration (CKD-EPI) equation refit without adjustment for race. BUN/Creatinine Ratio 16.7 12.0 - 20.0 LAB CHEMISTRY METHOD 10/28/2024 1:54 PM EDT [facility] Calcium 8.5 8.4 - 10.2 mg/dL LAB CHEMISTRY METHOD 10/28/2024 1:54 PM EDT [facility] AST (SGOT) 68(H) 5 - 40 unit/L LAB CHEMISTRY METHOD 10/28/2024 1:54 PM EDT [facility] ALT (SGPT) 50 7 - 52 unit/L LAB CHEMISTRY METHOD 10/28/2024 1:54 PM EDT [facility] Alkaline Phosphatase 75 34 - 104 unit/L LAB CHEMISTRY METHOD 10/28/2024 1:54 PM EDT [facility] Total Protein 5.8(L) 6.4 - 8.5 g/dL LAB CHEMISTRY METHOD 10/28/2024 1:54 PM EDT [facility] Albumin 3.4(L) 3.5 - 5.0 g/dL LAB CHEMISTRY METHOD 10/28/2024 1:54 PM EDT [facility] Total Bilirubin 0.4 0.3 - 1.0 mg/dL LAB CHEMISTRY METHOD 10/28/2024 1:54 PM EDT [facility] Blood Venous blood specimen / Unknown Venipuncture / Unknown 10/28/2024 1:11 PM EDT 10/28/2024 1:19 PM EDT Nat GILES LAB BLOOD ORDERABLES Fi nal Result [facility] [address] [place] [address], [place] [phone] * MT CRITICAL CARE 30-74 MINUTES (10/28/2024 11:25 AM EDT) Narrative Jonny Alonzo MD - 10/28/2024 11:25 AM EDT Jonny Alonzo MD 10/28/2024 1:33 PM Critical Care Performed by: Jonny Alonzo MD Authorized by: Jonny Alonzo MD Critical care provider statement: Critical care time (minutes): 33 Total face to face critical care time (minutes): 33 Critical care time was exclusive of: Separately billable procedures and treating other patients and teaching time Critical care was necessary to treat or prevent imminent or life-threatening deterioration of the following conditions: Shock and respiratory failure Critical care was time spent personally by me on the following activities: Development of treatment plan with patient or surrogate, discussions with consultants, discussions with primary provider, evaluation of patient's response to treatment, examination of patient, obtaining history from patient or surrogate, ordering and review of laboratory studies, ordering and review of radiographic studies, ordering and performing treatments and interventions, pulse oximetry, re-evaluation of patient's condition and review of old charts Face to face critical care was time spent personally by me on the following activities: Development of treatment plan with patient or surrogate, discussions with consultants, discussions with primary provider, examination of patient, evaluation of patient's response to treatment, ordering and performing treatments and interventions, ordering and review of laboratory studies, ordering and review of radiographic studies, pulse oximetry, re-evaluation of patient's condition, review of old charts and ventilator management I assumed direction of critical care for this patient from another provider in my specialty: no Care discussed with: accepting provider at another facility us Jonny Alonzo MD IN CLINIC/BEDSIDE ORDERABLES Fin al Result * Anti-Xa - STAT (10/28/2024 9:52 AM EDT) Heparin Anti-Xa 0.66 0.30 - 0.70 I Unit/mL LAB COAGULATION METHOD 10/28/2024 10:42 AM EDT [facility] Blood Venous blood specimen / Unknown Venipuncture / Unknown 10/28/2024 9:52 AM EDT 10/28/2024 10:29 AM EDT Narrative [facility] - 10/28/2024 10:42 AM EDT Therapeutic range listed is for Unfractionated Heparin. LMW Heparin therapeutic range: 0.50-1.20 IU/mL us Chirstian Hilton MD LAB BLOOD ORDERABLES Final R esult [facility] [address] [place] [address], [place] [phone] * (ABNORMAL) TRANSTHORACIC ECHOCARDIOGRAM (TTE) COMPLETE W/ CONTRAST (10/28/2024 9:06 AM EDT) Left Atrium Minor Tyronza 5.5 cm CV PACS Left Atrium Major Tyronza 6.2 cm CV PACS LA Area Sys (A2C) 21 cm2 CV PACS LA Area Sys (A4C) 24 cm2 CV PACS LA Volume (BP) 73 mL CV PACS RA Area 6.8 cm2 CV PACS RA 2D Volume 10 mL CV PACS AV Regurgitation PHT 429 ms CV PACS AR Max Velocity 3.8 m/s CV PACS AV Peak Gradient 59 mmHg CV PACS AV Peak Nhan 1.2 m/s CV PACS AV Peak Gradient 6 mmHg CV PACS AV Mean Gradient 4 mmHg CV PACS Ao VTI 19.4 cm CV PACS AV Area Continuity Equation 1.5 cm2 CV PACS AV Area Peak Velocity 1.5 cm2 CV PACS Aortic Sinus Valsalva 2.9 cm CV PACS Ascending Aorta 2.6 cm CV PACS IVSD 1.0(A) 0.6 - 0.9 cm CV PACS LVIDD 4.6 3.8 - 5.2 cm CV PACS LVIDS 3.1 2.2 - 3.5 cm CV PACS LVOT Diameter 1.7 cm CV PACS LVOT Mean Nhan 0.6 m/s CV PACS LVOT Mean Grad 2 mmHg CV PACS LVOT Peak VTI 12.9 cm CV PACS LVOT Peak Nhan 0.8 m/s CV PACS LVOT Peak Gradient 3 mmHg CV PACS LVPWD 1.0(A) 0.6 - 0.9 cm CV PACS MV E' Tissue Velocity Lateral 3 cm/s CV PACS MV E' Tissue Velocity Septal 3 cm/s CV PACS LVOT Area 2.3 cm2 CV PACS LVOT Stroke Volume 29 mL CV PACS MR PISA Nyquist Nhan 38 cm/s CV PACS PISA MR Radius 0.80 cm CV PACS MV Mean Gradient 9 mmHg CV PACS MR VTI 116.0 cm CV PACS MV VTI 50.3 cm CV PACS MR PISA Max Velocity 4.6 m/s CV PACS MR Peak Gradient 84 mmHg CV PACS Mitral Valve Max Velocity 2.0 m/s CV PACS MV Peak Gradient 16 mmHg CV PACS MV Deceleration [place] 4.6 m/s2 CV PACS E Wave Deceleration Time 313(A) 119 - 242 ms CV PACS MV PHT 92 ms CV PACS MV Peak A Nhan 1.31 m/s CV PACS MV Peak E Nhan 1.43 m/s CV PACS PISA MR EROA 0.34 cm2 CV PACS MV Area PHT 2.4 cm2 CV PACS MV Area Continuity Equation 0.6 cm2 CV PACS PISA Regurgitant Volume 39 mL CV PACS RV Diastolic Basal Dimension 2.6 2.5 - 4.1 cm CV PACS RV S' 6 cm/s CV PACS TAPSE 7 mm CV PACS TR Peak Velocity 2.08 m/s CV PACS TR Peak Gradient 17 mmHg CV PACS E/E' Ratio Septal 48 CV PACS E/E' Ratio Averaged 48 CV PACS LVOT Stroke Index 18 mL/m2 CV PACS Relative Wall Thickness ratio 0.43 CV PACS LVOT:AV VTI Index 0.66 CV PACS FS 33 % CV PACS LV Mass 2D 159 g CV PACS Ascending Aorta Index 1.64 cm/m2 CV PACS MV VTI:LVOT VTI ratio 3.9 CV PACS LVOT flow 136 mL/s CV PACS RA 2D Volume Index 6 mL/m2 CV PACS GUERRERO Index (VTI) 0.95 cm2/m2 CV PACS GUERRERO Index (Pk Nhan) 0.94 cm2/m2 CV PACS LVIDD Index 2.89 cm/m2 CV PACS LVIDS Index 1.95 cm/m2 CV PACS AV Velocity Ratio 0.67 CV PACS E/A Ratio 1.1 CV PACS E/E' Ratio Lateral 48 CV PACS LA Volume Index (BP) 46 mL/m2 CV PACS LV Mass Index 2D 100 g/m2 CV PACS BSA 1.57 m2 CV PACS Right Ventricular Peak Systolic Pressure 20 mmHg CV PACS Est. RA Pressure 3 mmHg CV PACS Anatomical Region Laterality Modality Ultrasound Narrative 10/28/2024 9:36 AM EDT Left Ventricle: There is severe hypokinesis to akinesis of mid to distal segments. No thrombus detected with preserved contractions of basal segment. Unable to assess diastolic function due to severe mitral valve disorder. Right ventricle cavity is normal. Right ventricular systolic function is severely reduced. Left atrium cavity is moderately dilated. Aortic valve leaflets are mildly thickened. No aortic valve stenosis. Moderate to severe aortic valve regurgitation. 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 There is moderate to severe mitral regurgitation. There is moderate to severe mitral stenosis. Right ventricular systolic pressure cannot be obtained. Left Ventricle Left ventricle cavity size is normal. There is mild hypertrophy. Systolic function is severely decreased with an ejection fraction of 20-25%. There is severe hypokinesis to akinesis of mid to distal segments. No thrombus detected with preserved contractions of basal segment. Unable to assess diastolic function due to severe mitral valve disorder. Right Ventricle Right ventricle cavity appears normal. Systolic function is severely reduced. Left Atrium Left atrium cavity is moderately dilated. Right Atrium Right atrium cavity is normal. IVC/SVC Inferior vena cava structure is normal. RA pressures is estimated to be 3 mmHg (IVC diameter <21 mm and decreases >50% during inspiration). Mitral Valve The leaflets are mildly thickened. 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 The tip of posterior leaflet is also thickened. There is moderate to severe regurgitation. Systolic flow reversal is absent. There is moderate to severe stenosis. Tricuspid Valve The leaflets exhibit normal excursion. There is mild regurgitation. The RVSP is estimated at 20 mmHg. Aortic Valve The aortic valve is trileaflet. The leaflets are thickened. There is moderate severe regurgitation. There is no evidence of aortic valve stenosis. Pulmonic Valve Pulmonic valve structure is normal. There is no pulmonic valve regurgitation. Ascending Aorta The aorta appears normal in size. Pericardium There is no pericardial effusion. There is a pleural effusion. Study Details Overall the study quality was adequate. Definity contrast was given to enhance imaging. Study was difficult due to: poor endocardial visualization, procedure performed with the patient in a supine position, mechanically ventilated and lung artifact. Jonny Park MD CV ECHO PROCEDURES Final Resul t * (ABNORMAL) Urinalysis with reflex microscopic (10/28/2024 5:21 AM EDT) Specific [place] Urine 1.006 1.003 - 1.030 LAB URINALYSIS - AUTOMATED METHOD 10/28/2024 6:33 AM [facility] pH, Urine 7.0 5.0 - 8.0 pH LAB URINALYSIS - AUTOMATED METHOD 10/28/2024 6:33 AM [facility] Leukocytes, Urine Negative Negative LAB URINALYSIS - AUTOMATED METHOD 10/28/2024 6:33 AM [facility] Nitrite, Urine Negative Negative LAB URINALYSIS - AUTOMATED METHOD 10/28/2024 6:33 AM [facility] Protein, Urine 100(A) <=Trace mg/dL LAB URINALYSIS - AUTOMATED METHOD 10/28/2024 6:33 AM [facility] Glucose, Urine Negative Negative mg/dL LAB URINALYSIS - AUTOMATED METHOD 10/28/2024 6:33 AM [facility] Ketones, Urine Negative Negative mg/dL LAB URINALYSIS - AUTOMATED METHOD 10/28/2024 6:33 AM [facility] Urobilinogen , Urine 0.2 0.2 - 1.0 mg/dL LAB URINALYSIS - AUTOMATED METHOD 10/28/2024 6:33 AM [facility] Bilirubin, Urine Negative Negative LAB URINALYSIS - AUTOMATED METHOD 10/28/2024 6:33 AM [facility] Blood, Urine Negative Negative LAB URINALYSIS - AUTOMATED METHOD 10/28/2024 6:33 AM [facility] RBC, Urine 1 0 - 4 /HPF LAB URINALYSIS - AUTOMATED METHOD 10/28/2024 6:33 AM [facility] WBC, Urine 1.3 0 - 4 /HPF LAB URINALYSIS - AUTOMATED METHOD 10/28/2024 6:33 AM [facility] Squamous Epithelial, Urine 33 0 - 60 /LPF LAB URINALYSIS - AUTOMATED METHOD 10/28/2024 6:33 AM [facility] Non-Squamous Epithelial, Urine 1 transitional epithelial cell 2 renal tubular epithelial cells /LPF LAB URINALYSIS - AUTOMATED METHOD 10/28/2024 6:33 AM [facility] Bacteria, Urine Negative Negative /HPF LAB URINALYSIS - AUTOMATED METHOD 10/28/2024 6:33 AM [facility] Hyaline Casts, Urine 1 0 - 3 /LPF LAB URINALYSIS - AUTOMATED METHOD 10/28/2024 6:33 AM [facility] Urine Urine specimen obtained by clean catch procedure / Unknown Non-blood Collection / Unknown 10/28/2024 5:21 AM EDT 10/28/2024 6:29 AM EDT us Christian Hilton MD LAB URINE ORDERABLES Final R esult [facility] [address] [place] [address], * CT Angio Chest wo and/or w Contrast (10/28/2024 3:04 AM EDT) Anatomical Region Laterality Modality Body Computed Tomogra phy 10/28/2024 4:21 AM EDT Impressions 10/28/2024 4:21 AM EDT 1. Subsegmental pulmonary arteries in the lung bases are not opacified due to imaging prior to arrival of the contrast bolus. Otherwise no evidence of a pulmonary embolism. 2. Bilateral interlobular septal line thickening and ground-glass opacity consistent with pulmonary edema. 3. Consolidation in the dependent portions of the lungs is suggestive of aspiration, pneumonia, and/or alveolar edema. 4. Small bilateral pleural effusions. 3. Chronic findings as above. This document has been electronically signed by: Frankie Jasso MD on 10/28/2024 04:21:34 Narrative 10/28/2024 4:21 AM EDT INDICATION: respiratory failure, altered mental status, edema on CXR CT angiography chest with contrast. 3D Postprocessing. Comparison: None provided Findings: Subsegmental pulmonary arteries in the lung bases are not opacified due to imaging prior to arrival of the contrast bolus. There is otherwise no evidence of a pulmonary embolism. There is left atrial enlargement. There is no pericardial effusion. There is coronary artery calcification. Thoracic aorta is normal in diameter. No enlarged lymph nodes are seen. Endotracheal tube is in satisfactory position. There are small bilateral pleural effusions. There is bilateral interlobular septal line thickening and ground-glass opacity. There is consolidation in the dependent portions of the lungs. Trachea and central bronchi are widely patent. There are mild chronic appearing upper and midthoracic compression fractures. There is no acute fracture or suspicious lytic or sclerotic lesion. Limited images of the upper abdomen demonstrate the NG tube in the proximal stomach. Procedure Note Frankie Jasso MD - 10/28/2024 INDICATION: respiratory failure, altered mental status, edema on CXR CT angiography chest with contrast. 3D Postprocessing. Comparison: None provided Findings: Subsegmental pulmonary arteries in the lung bases are not opacified dueto imaging prior to arrival of the contrast bolus. There is otherwise no evidence of a pulmonary embolism. There is left atrial enlargement.There is no pericardial effusion. There is coronary artery calcification. Thoracic aorta is normal in diameter. No enlarged lymph nodes are seen. Endotracheal tube is in satisfactory position. There are small bilateral pleural effusions. There is bilateral interlobular septal line thickening and ground-glass opacity. There is consolidation in the dependent portions of the lungs. Trachea andcentral bronchi are widely patent. There are mild chronic appearing upper and midthoracic compression fractures. There is no acute fracture or suspicious lytic or sclerotic lesion. Limited images of the upper abdomen demonstrate the NG tube in the proximal stomach. IMPRESSION: 1. Subsegmental pulmonary arteries in the lung bases are not opacifieddue to imaging prior to arrival of the contrast bolus. Otherwise no evidence of a pulmonary embolism. 2. Bilateral interlobular septal line thickening and ground-glassopacity consistent with pulmonary edema. 3. Consolidation in the dependent portions of the lungs is suggestive of aspiration, pneumonia, and/or alveolar edema. 4. Small bilateral pleural effusions. 3. Chronic findings as above. This document has been electronically signed by: Frankie Jasso MD on 10/28/2024 04:21:34 Christian Hilton MD IM CT PROCEDURES Final Resu lt * (ABNORMAL) Drug abuse screen 8a panel, urine (10/28/2024 12:25 AM EDT) Amphetamine Screen, Ur Negative Negative LAB CHEMISTRY METHOD 5 1:16 AM T [facility] Comment:Certain OTC medicati ons containing ephedrine, phenylephrine, pseudoephedrine and phenylpropanolamine can cause false positive results. Barbiturate Screen, Ur Negative Negative LAB CHEMISTRY METHOD 5 1:16 AM EDT [facility] Benzodiazepine Screen, Ur Positive(A ) Negative LAB CHEMISTRY METHOD 5 1:16 AM [facility] Cocaine Screen, Ur Negative Negative LAB CHEMISTRY METHOD 5 1:16 AM EDT [facility] Opiate Screen, Ur Negative Negative LAB CHEMISTRY METHOD 5 1:16 AM EDT [facility] Cannabinoid (THC) Screen, Ur Negative Negative LAB CHEMISTRY METHOD 5 1:16 AM EDT [facility] Comment:Specimens from patie nts taking pantoprazole sodium (Protonix) have been shown to produce false positive results. Oxycodone Screen, Ur Negative Negative LAB CHEMISTRY METHOD 5 1:16 AM EDT [facility] Fentanyl, Ur Negative Negative LAB CHEMISTRY METHOD 5 1:16 AM T [facility] Urine Urine specimen obtained by clean catch procedure / Unknown Non-blood Collection / Unknown 10/28/2024 12:25 AM EDT 10/28/2024 12:54 AM EDT Narrative [facility] - 10/28/2024 1:16 AM EDT Assay cutoffs: Amphetamines 1000 ng/mL Barbiturates 200 ng/mL Benzodiazepines 200 ng/mL Cocaine 300 ng/mL Fentanyl 1 ng/mL Opiates 300 ng/mL Oxycodone 100 ng/mL THC 50 ng/mL Semi-quantitative assay for screening purposes only. Unconfirmed screening result should not be used for non-medical purposes. *ALTERNATE METHOD CONFIRMATION DONE UPON REQUEST ONLY* Christian Hilton MD LAB URINE ORDERABLES Final R esult [facility] [address] [place] [address], * (ABNORMAL) Manual differential (10/27/2024 11:35 PM EDT) Neutrophils % 42.0 % LAB HEMETOLOGY METHOD 5 1:39 AM EDT [facility] Bands % 1.0 % LAB HEMETOLOGY METHOD 5 1:39 AM EDT [facility] Lymphocytes % 41.0 % LAB HEMETOLOGY METHOD 5 1:39 AM [facility] Monocytes % 13.0 % LAB HEMETOLOGY METHOD 5 1:39 AM [facility] Eosinophils % 1.0 % LAB HEMETOLOGY METHOD 5 1:39 AM [facility] Basophils % 1.0 % LAB HEMETOLOGY METHOD 5 1:39 AM [facility] Metamyelocytes % 1.0(H) % LAB HEMETOLOGY METHOD 5 1:39 AM [facility] Neutrophils Absolute Manual 6.59 1.50 - 7.00 K/mcL LAB HEMETOLOGY METHOD 5 1:39 AM [facility] Bands Absolute Manual 0.16(H) 0.00 - 0.00 K/mcL LAB HEMETOLOGY METHOD 5 1:39 AM [facility] Lymphocytes Absolute 6.44(H) 1.00 - 5.00 K/mcL LAB HEMETOLOGY METHOD 5 1:39 AM [facility] Monocytes Absolute Manual 2.04(H) 0.20 - 1.00 K/mcL LAB HEMETOLOGY METHOD 5 1:39 AM [facility] Eosinophils Absolute Manual 0.16 0.00 - 0.50 K/mcL LAB HEMETOLOGY METHOD 5 1:39 AM [facility] Basophils Absolute Manual 0.16 0.00 - 0.20 K/mcL LAB HEMETOLOGY METHOD 5 1:39 AM [facility] Metamyelocytes Absolute Manual 0.16(H) 0.00 - 0.00 K/mcL LAB HEMETOLOGY METHOD 5 1:39 AM [facility] Rbc Morphology Consistent with indices Consistent with indices, Normal for [place] LAB HEMETOLOGY METHOD 5 1:39 AM EDT [facility] Platelet Morphology - WAM Normal Normal LAB HEMETOLOGY METHOD 5 1:39 AM EDT [facility] Blood Venous blood specimen / Unknown Venipuncture / Unknown 10/27/2024 11:35 PM EDT 10/27/2024 11:59 PM EDT Christian Hilton MD LAB BLOOD ORDERABLES Final R esult [facility] [address] [place] [address], [place] [phone] * (ABNORMAL) B-Type Natriuretic Peptide (BNP) (10/27/2024 11:35 PM EDT) BNP 1,268(H) <=100 pcg/mL LAB CHEMISTRY METHOD 10/28/2024 12:36 AM EDT [facility] Blood Venous blood specimen / Unknown Venipuncture / Unknown 10/27/2024 11:35 PM EDT 10/27/2024 11:59 PM EDT Christian Hilton MD LAB BLOOD ORDERABLES Final R esult [facility] [address] [place] [address], [place] [phone] * Ethanol (10/27/2024 11:35 PM EDT) Ethanol Level <3 0 - 10 mg/dL LAB CHEMISTRY METHOD 10/28/2024 1:02 AM EDT [facility] Blood Venous blood specimen / Unknown Venipuncture / Unknown 10/27/2024 11:35 PM EDT 10/27/2024 11:59 PM EDT us Christian Hilton MD LAB BLOOD ORDERABLES Final R esult Performing Organization Address [facility]/ZIP Co de Phone Number [facility] [address] [place] [address], [place] [phone] * Salicylate Level (10/27/2024 11:35 PM EDT) Salicylate Level 4.9 2.0 - 29.0 mg/dL LAB CHEMISTRY METHOD 10/28/2024 1:02 AM EDT [facility] Blood Venous blood specimen / Unknown Venipuncture / Unknown 10/27/2024 11:35 PM EDT 10/27/2024 11:59 PM EDT us Christian Hilton MD LAB BLOOD ORDERABLES Final R esult Performing Organization Address [facility] Co de Phone Number [facility] [address] [place] [address], [place] [phone] * [facility] 30-74 MINUTES (10/27/2024 10:44 PM EDT) Narrative Christian Hilton MD - 10/27/2024 10:44 PM EDT Christian Hilton MD 10/28/2024 8:50 PM Critical Care Performed by: Christian Hilton MD Authorized by: Jonyn Alonzo MD Critical care provider statement: Critical care time (minutes): 75 Total face to face critical care time (minutes): 45 Critical care time was exclusive of: Separately billable procedures and treating other patients Critical care was necessary to treat or prevent imminent or life-threatening deterioration of the following conditions: Cardiac failure, circulatory failure, respiratory failure and shock Critical care was time spent personally by me on the following activities: Ordering and review of radiographic studies, ordering and performing treatments and interventions, ordering and review of laboratory studies, pulse oximetry, re-evaluation of patient's condition, evaluation of patient's response to treatment, discussions with consultants, obtaining history from patient or surrogate and ventilator management Face to face critical care was time spent personally by me on the following activities: Evaluation of patient's response to treatment, re-evaluation of patient's condition, pulse oximetry, examination of patient and ventilator management us Jonny Alonzo MD IN CLINIC/BEDSIDE ORDERABLES Fin al Result from Last 3 Months Insurance [facility] MEDICARE Member Subscriber Plan / Payer (Ef fective 2020-Present) Name:STEFFI PERDOMO Relation to Subscriber:Self Name:Steffi Perdomo Payer ID:[id number] Group ID:[id number] Type:Not on file Address: [place] [address] [phone] Advance Directives * Full Code - Default (Latest Code Status on File) Date Activated Date Inactivated Comments 11/11/2024 2:13 AM 11/15/2024 5:26 PM This is order is used when code status has not been discussed with the patient, or code status is otherwise unknown/unconfirmed To update the patient's code status, place a code status order. Do not modify or discontinue any currently active code status orders. * Full Code - Default Date Activated Date Inactivated Comments 10/28/2024 12:38 PM 11/11/2024 2:13 AM This is orde r is used when code status has not been discussed with the patient, or code status is otherwise unknown/unconfirmed To update the patient's code status, place a code status order. Do not modify or discontinue any currently active code status orders. Care Teams Sub Plant Manager Relationship Specialty Start Date End Date Evita Ramos NP [address] [place] [id number] PCP - General Nurse Practitioner 10/27/24
--- OUTSIDE RECORDS SUMMARY | 2024-11-29 11:12 | XMS_ITS | Clinical Summary ---
Author Organization [facility] Address [address] [place] [address] Care Team Providers Care Sheriff Detective Name Role Phone Unavailable Primary Care Provider Unavailabl e Allergies No known active allergies Medications Medication Sig Dispensed Refills Start Date End Date Status amitriptyline (ELAVIL) 100 MG tablet Take 100 mg by mouth daily. 0 08/11/2019 Active baclofen (LIORESAL) 20 MG tablet 0 09/20/2019 Active buprenorphine HCl-naloxone HCl 8-2 mg (SUBOXONE) sublingual film PLACE 1 FILM UNDER THE TONGUE 3 TIMES A DAY 0 06/17/2019 Active FLOVENT HFA 220 MCG/ACT inhaler 0 09/15/2019 Active albuterol (PROVENTIL HFA;VENTOLIN HFA) 108 (90 Base) MCG/ACT inhaler INHALE 2 PUFFS BY MOUTH EVERY 4 TO 6 HOURS NEEDED 0 09/11/2019 Active Cyanocobalamin (VITAMIN B-12) [address] 1 TABLET UNDER THE TONGUE EVERY DAY 0 06/16/2019 Active ibuprofen (ADVIL,MOTRIN) 800 MG tablet TAKE 1 TABLET BY MOUTH 3 TIMES A DAY WITH MEALS 0 08/24/2019 Active mirtazapine (REMERON) 7.5 MG tablet Take 7.5 mg by mouth every night at bedtime. 0 07/08/2019 Active NARCAN 4 MG/0.1ML LIQD USE DIRECTED 0 07/12/2019 Active omeprazole (PriLOSEC) 20 MG capsule Take 20 mg by mouth 2 (two) times a day. 0 07/12/2019 Active oxyCODONE HCl (ROXICODONE) 10 MG TABS TAKE 1 TABLET BY MOUTH THREE TIMES A DAY DNF 08/29 0 09/09/2019 Active SUMAtriptan (IMITREX) 50 MG tablet TAKE 1 TABLET BY MOUTH WITH FULL GLASS OF WATER IF NEEDED. 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 Family History Medical History Relation Name Comments Cancer Brother Diabetes Brother Cancer Father Cancer Mother Diabetes Mother Diabetes Sister Relation Name Status Comments Brother Father Mother Sister Social History Tobacco Use Types Packs/Day Years Used Date Smoking Tobacco: Never Assessed Sex and Gender Information Value Date Recorded Sex Assigned at Not on file Gender Identity Not on file Sexual Orientation Not on file Job Start Date Occupation Industry Not on file Not on file Not on file Last Filed Vital Signs Vital Sign Reading Time Taken Comments Blood Pressure - - Pulse - - Temperature - - Respiratory Rate - - Oxygen Saturation - - Inhaled Oxygen Concentration - - Weight 46.3 kg (102 lb) 09/23/2019 9:02 AM EDT Height 157.5 cm (5' 2 ) 09/23/2019 9:02 AM EDT Body Mass Index 18.66 09/23/2019 9:02 AM EDT Plan of Treatment Health Maintenance Due Date Last Done Comments Hepatitis C Screening 1965 COVID-19 Vaccine (#1) 05/25/1964 Depression Screening 1975 Preventative Health Evaluation 11/22/1981 DTap / Tdap / Td (1 - Tdap) 11/22/1982 Cervical Cancer Screening (P ap Smear) 11/22/1984 Colon Cancer Screening (Colonoscopy) 11/22/2008 Breast Cancer Screening (Mammogram) 11/22/2013 Shingrix-Zoster Vaccine (1 of 2) 11/22/2013 Influenza Vaccine (#1) 2024 RSV Adult > 60+ Yrs or Pregn ant (1 - 1-dose 75+ series) 11/22/2038 Hepatitis B Vaccines Aged Out No long er eligible based on patient's age to complete this topic Pneumococcal Vaccine Aged Out No long er eligible based on patient's age to complete this topic RSV Ped < 20 months Aged Out No longe r eligible based on patient's age to complete this topic
--- OUTSIDE RECORDS SUMMARY | 2024-11-29 11:12 | XMS_ITS | Clinical Summary ---
Author Organization [facility] Address [address] [place] [address] Care Team Providers Care Machining And Assembly Supervisor Name Role Phone Evita Ramos JEWEL SUPERVISOR Primary Care Provider [phone] Encounters Date Type Department Care Team Description 10/28/2024 11:42 AM EDT - 10/28/2024 11:59 PM EDT Hospital Encounter [facility] [address] [place] [address] Jose Constantino MD Discharge Disposition: Home or Self Care from Last 3 Months Social History Tobacco Use Types Packs/Day Years Used Date Smoking Tobacco: Never Assessed Comments Unknown Sex and Gender Information Value Date Recorded Sex Assigned at Not on file Legal Sex Female 9:36 PM EDT Gender Identity Not on file Sexual Orientation Not on file Plan of Treatment Health Maintenance Due Date Last Done Comments Hepatitis C Virus Screening 1965 HIV Screening 11/22/1976 DTaP/Tdap/Td Vaccines (1 - Tdap) 11/22/1982 Pap Smear (Ages 21-65) 11/22/1984 Mammogram 2003 Colonoscopy 11/22/2008 Pneumococcal Vaccines 50+ (1 of 1 - PCV) 11/22/2013 Zoster (Shingles) Vaccine (1 of 2) 11/22/2013 COVID-19 Vaccine ( - 2023-2 5 season) 2023 Influenza Vaccine 11/11/2024 RSV Vaccine 60 years and old er and Patients (1 - 1-dose 75+ series) 11/22/2038 Hepatitis B Vaccines Aged Out No long er eligible based on patient's age to complete this topic Insurance [employer] MEDICARE OUT OF NETWORK Member Subscriber Plan / Payer (Ef fective for All Dates) Name:Radha Stein Relation to Subscriber:Self Name:Radha Stein Payer ID:Not on file Group ID:Not on file Type:Not on file Address: [address] [place] [id number] Care Teams Machining And Assembly Supervisor Relationship Specialty Start Date End Date Evita Ramos NP [address] [place] [address] PCP - General Adult Health - [place]/FARZAD/JEWEL SUPERVISOR/BORING MACHINE OPERATOR HELPER 10/28/24
== END 2024-11-29 11:08 | disposition home or self-care (01) ==
LOC: HO.HSMS 10:01
PROVIDERS: PCP Nurse Practitioner Family; Visit Provider Nurse Practitioner Family
DX: I69.351 Hemiplegia and hemiparesis following cerebral infarction affecting right dominant side (principal); R56.9 Unspecified convulsions; R42 Dizziness and giddiness; R25.1 Tremor, unspecified; G43.009 Migraine without aura, not intractable, without status migrainosus
CPT/HCPCS: 99214

== ENCOUNTER → 2024-11-29 10:00 | Outpatient (BNVA) | payer OTHER, SELFPAY | PROVIDERS: PCP Nurse Practitioner Family; Visit Provider Nurse Practitioner Family | DX: G43.009 Migraine without aura, not intractable, without status migrainosus (principal); I69.351 Hemiplegia and hemiparesis following cerebral infarction affecting right dominant side; I63.9 Cerebral infarction, unspecified; R56.9 Unspecified convulsions; R42 Dizziness and giddiness; R25.1 Tremor, unspecified | CPT/HCPCS: 99212 ==